=== PATIENT | female | born 1940 | race Caucasian/White ===

== ENCOUNTER 2016-10-05 15:41 | Inpatient (IN) | payer MEDICARE, SELFPAY ==
--- NOTE | 2016-10-05 15:56 | EDM.PDOC ---
ED HPI GENERAL MEDICAL PROBLEM - General Chief Complaint: Neuro Symptoms/Deficits Stated Complaint: POSSIBLE STROKE Time Seen by Provider: 10/05/16 15:50 Source of Information: Reports: Patient History Limitations: Reports: No Limitations - History of Present Illness INITIAL COMMENTS - FREE TEXT/NARRATIVE: 74-year-old female presents the ED transferred by [facility]. She presented there with generalized weakness and apparently had some dysarthria or slurred speech which they thought might represent a stroke. The patient reports that she 's been ill for the last 10 days with paroxysmal productive cough diagnosed with bronchitis last week and is on antibiotic therapy. She reports over the last 2 days she's gotten worse instead of better. X-ray was not done at the time of diagnosis. She was placed on 8 albuterol metered-dose inhaler and antibiotics. She has no diarrhea nausea or vomiting. She is hardly any appetite although she is forcing herself to eat. Today she is weak all over. Is a little more short of breath. He is lightheaded when she standing. Over the last 2 days she's developed pain in her left lower back flank area that is worsened by weightbearing on the left side. She has no diarrhea. She does not have diabetes. Onset: Gradual (Has had a purse by tract infection with paroxysmal productive cough for about 10 days. Been on antibiotics for approximately 6 days. Still coughing paroxysmal he with minimal sputum production.), Other ( Dominant left low back pain worsened by walking on the left leg.) Duration: Day(s): Location: Reports: Chest (Productive cough x10 days. Hardly any sputum production over last 2 days. Paroxysmal cough persists), Back (Diffuse left lower back pain radiating to her left buttock and posterior hip.), Other - Related Data Allergies Allergy/AdvReac Type Severity Reaction Status Date / Time Penicillins Allergy Cannot Verified 10/05/16 15:52 Remember Home Meds: Home Meds Omeprazole 40 mg PO BID 01/05/15 [History] Calcium Carbonate/Vitamin D3 [Calcium 250+D] 1 each PO DAILY 01/16/15 [History] Cyclobenzaprine [Flexeril] 10 mg PO TID PRN #40 tablet 01/17/15 [Rx] Past Medical History Other Cardiovascular History: Rheumatic fever Hx / PVD with Aortic Bi-Fem per family Respiratory History: Reports: Bronchitis, Recurrent, COPD (Chronic cigarette smoker for 50 pack years.) Other Gastrointestinal History: STOMACH ULCERS Other OB/BYN History: HYSTERECTOMY Neurological History: Reports: None Other Neuro History: Bilateral leg "weakness" Rt. wworse than Lt. Other Dermatologic History: OPEN SORE ON RIGHT ARM - Past Surgical History Other Cardiovascular Surgeries/Procedures: FEMORAL POPLITEAL BYPASS Social & Family History - Tobacco Use Smoking Status *Q: Current Every Day Smoker Tobacco Use Within Last Twelve Months: Cigarettes (Has smoked only for cigarettes in the last week.) Years of Tobacco use: 50 Second Hand Smoke Exposure: Yes - Recreational Drug Use Recreational Drug Use: No - Living Situation & Occupation Living situation: Reports: Occupation: Retired ED ROS GENERAL - Review of Systems Review Of Systems: See Below Constitutional: Reports: Chills, Malaise, Weakness, Fatigue, Diaphoresis, Decreased Appetite. Denies: Fever, Weight Loss HEENT: Denies: Ear Pain, Vertigo, Vision Change Respiratory: Reports: Wheezing, Cough, Sputum (Productive cough. No sputum the last 3 days. Percocet was yellow in color) Cardiovascular: Reports: Chest Pain (Been coughing so much.), Dyspnea on Exertion, Lightheadedness. Denies: Blood Pressure Problem, Claudication, Edema , Orthopnea, Palpitations Endocrine: Reports: Fatigue GI/Abdominal: Reports: Decreased Appetite. Denies: Abdominal Pain, Diarrhea, Distension : Reports: No Symptoms Musculoskeletal: Reports: Back Pain (Use low back pain the last 2 days. She believes it's started after coughing so hard. It radiates into the left buttock and hip area posteriorly.) Skin: Reports: No Symptoms Neurological: Reports: No Symptoms, Difficulty Walking, Weakness (To the week), Change in Speech (Was told her speech was a little dysarthric but at the time my examination there was no dysarthria.). Denies: Headache, Numbness, Tingling Psychiatric: Reports: No Symptoms Hematologic/Lymphatic: Reports: No Symptoms Immunologic: Reports: No Symptoms ED EXAM, GENERAL - Physical Exam Exam: See Below Exam Limited By: No Limitations General Appearance: Alert, WD/WN, Anxious (Mildly short of breath.), Mild Distress Eye Exam: Bilateral Eye: Normal Inspection Ears: Normal External Exam, Normal TMs Throat/Mouth: Normal Inspection, Normal Lips, Normal Oropharynx, Other (Tongue is moist.) Head: Atraumatic, Normocephalic Neck: Normal Inspection, Supple, Non-Tender, Full Range of Motion. No: Carotid Bruit, Lymphadenopathy (L), Lymphadenopathy (R) Respiratory/Chest: Chest Non-Tender, Respiratory Distress, Decreased Breath Sounds (Increased air entry to the posterior 30% of lung farrell bilaterally.), Wheezing. No: Lungs Clear, Normal Breath Sounds, No Accessory Muscle Use Cardiovascular: Normal Peripheral Pulses, Regular Rate, Rhythm, No Edema, No Gallop, No Murmur, No Rub Peripheral Pulses: 1+: Posterior Tibial (L), Posterior Tibial (R), Dorsalis Pedis (L), Dorsalis Pedis (R) GI/Abdominal: Normal Bowel Sounds, Soft, Non-Tender, No Organomegaly, No Distention, Other (Tympany to percussion in the upper abdomen compatible with aerophagia.) Back Exam: Normal Inspection, CVA Tenderness (L), Decreased Range of Motion, Vertebral Tenderness (Especially lower back L3-4 and 5 on the left side as compared to the right.), Other (Internal/external rotation of her left hip causes marked pain in the superior aspect of the right sacroiliac joint. There is also some pain to palpation along L3-L4 and L5 facet joints bilaterally. He is also felt in the left lower back on internal/external rotation of the right hip.). No: Full Range of Motion, CVA Tenderness (R), Muscle Spasm Extremities: Normal Inspection, Normal Range of Motion, Non-Tender, No Pedal Edema, Normal Capillary Refill, Other (Lifting the left leg off the gurney caused pain in her left lower back.) Neurological: Alert, Oriented, CN II-XII Intact, Normal Cognition, Normal Gait Psychiatric: Normal Affect, Normal Mood Skin Exam: Warm, Dry, Intact, Normal Color, No Rash EKG INTERPRETATION EKG Date: 10/05/16 Time: 15:55 Rhythm: NSR Rate (beats/min): 80 [place]: normal P-wave: present QRS: normal ST-T: other (T wave flattening in aVL and lead V2. Nonspecific) QT: normal (No signs of any ischemia.) Course - Vital Signs Last Recorded V/S: Last Vital Signs Temp 36.2 C 10/05/16 15:47 Pulse 81 10/05/16 15:47 Resp 24 H 10/05/16 15:47 BP 118/50 L 10/05/16 15:47 Pulse Ox 93 L 10/05/16 16:29 - Orders/Labs/Meds Orders: Active Orders 24 hr Category Date Time Status EKG Documentation Completion [RC] STAT Care 10/05/16 15:54 Active Oxygen Therapy [RC] ASDIRECTED Care 10/05/16 19:27 Active RT Aerosol Therapy [RC] ASDIRECTED Care 10/05/16 16:11 Active Chest 1V Frontal [CR] Stat Exams 10/05/16 15:53 Taken Lumbar Spine 2 or 3V [CR] Stat Exams 10/05/16 15:55 Taken CULTURE BLOOD [BC] Stat Lab 10/05/16 16:25 Received CULTURE BLOOD [BC] Stat Lab 10/05/16 16:45 Received MYCOPLASMA PNEUMONIAE IGM AB [CHEM] Stat Lab 10/05/16 15:50 Received Dextrose 5%-0.9% NaCl [Dextrose 5%-Normal Saline] 1,000 Med 10/05/16 16:00 Active ml IV ASDIRECTED NS + KCl 20mEq/L [Normal Saline with 20 mEq KCl] 1,000 Med 10/05/16 19:45 Active ml IV ASDIRECTED Sodium Chloride 0.9% [Normal Saline] 100 ml Med 10/05/16 18:45 Active IV ASDIRECTED Sodium Chloride 0.9% [Saline Flush] Med 10/05/16 18:44 Active 10 ml FLUSH ONETIME PRN cefTRIAXone [Rocephin] 2 gm Med 10/05/16 19:23 Active Sodium Chloride 0.9% [Normal Saline] 100 ml IV ONETIME Blood Culture x2 Reflex Set [OM.PC] Stat Oth 10/05/16 15:54 Ordered Medication Orders Dextrose/Sodium Chloride (Dextrose 5%-Normal Saline) 1,000 mls @ 999 mls/hr IV ASDIRECTED PAULA Last Admin: 10/05/16 16:22 Dose: 999 mls/hr Sodium Chloride (Normal Saline) 100 mls @ 80 mls/hr IV ASDIRECTED PAULA Last Admin: 10/05/16 19:07 Dose: 80 mls/hr Ceftriaxone Sodium 2 gm/ (Sodium Chloride) 100 mls @ 200 mls/hr IV ONETIME ONE Stop: 10/05/16 19:52 Last Admin: 10/05/16 19:40 Dose: 200 mls/hr Potassium Chloride/Sodium Chloride (Normal Saline With 20 Meq Kcl) 1,000 mls @ 125 mls/hr IV ASDIRECTED PAULA Sodium Chloride (Saline Flush) 10 ml FLUSH ONETIME PRN PRN Reason: IV FLUSH Last Admin: 10/05/16 19:07 Dose: 10 ml Labs: Laboratory Tests 10/05/16 10/05/16 10/05/16 Range/Units 15:50 15:50 15:50 WBC 10.62 H (3.98-10.04) K/mm3 RBC 3.99 (3.98-5.22) M/mm3 Hgb 12.3 (11.2-15.7) gm/L Hct 37.0 (34.1-44.9) % MCV 92.7 (79.4-94.8) fl MCH 30.8 (25.6-32.2) pg MCHC 33.2 (32.2-35.5) g/dl RDW Std Deviation 44.9 (36.4-46.3) fL Plt Count 282 (182-369) K/mm3 MPV 10.0 (9.4-12.3) fl Neutrophils % (Manual) 76 H (40-60) % Band Neutrophils % 0 (0-10) % Lymphocytes % (Manual) 14 L (20-40) % Atypical Lymphs % 0 % Monocytes % (Manual) 7 (2-10) % Eosinophils % (Manual) 3 (0.7-5.8) % Basophils % (Manual) 0 L (0.1-1.2) Platelet Estimate Adequate Plt Morphology Comment Normal RBC Morph Comment Normal ESR 80 H (0-20) mm/hr D-Dimer, Quantitative (0.19-0.59) mg/L Sodium 137 (136-145) mEq/L Potassium 3.4 L (3.5-5.1) mEq/L Chloride 101 (98-107) mEq/L Carbon Dioxide 23 (21-32) mEq/L Anion Gap 16.4 H (5-15) BUN 13 (7-18) mg/dL Creatinine 1.2 H (0.55-1.02) mg/dL Est Cr Clr Drug Dosing 29.99 mL/min Estimated GFR (MDRD) 44 (>60) mL/min BUN/Creatinine Ratio 10.8 L (14-18) Glucose 134 H (83-115) mg/dL Lactic Acid (0.4-2.0) mmol/L Calcium 8.8 (8.5-10.1) mg/dL Magnesium 1.3 L (1.8-2.4) mg/dl Total Bilirubin 0.6 (0.2-1.0) mg/dL AST 22 (15-37) U/L ALT 23 (14-59) U/L Alkaline Phosphatase 105 (46-116) U/L Troponin I < 0.017 (0.00-0.056) ng/mL C-Reactive Protein 22.4 H* (<1.0) mg/dL B-Natriuretic Peptide (0-100) pg/mL Total Protein 7.2 (6.4-8.2) g/dl Albumin 2.7 L (3.4-5.0) g/dl Globulin 4.5 gm/dL Albumin/Globulin Ratio 0.6 L (1-2) Urine Color (Yellow) Urine Appearance (Clear) Urine pH (5.0-8.0) Ur Specific [place] (1.005-1.030) Urine Protein (Negative) Urine Glucose (UA) (Negative) Urine Ketones (Negative) Urine Occult Blood (Negative) Urine Nitrite (Negative) Urine Bilirubin (Negative) Urine Urobilinogen (0.2-1.0) Ur Leukocyte Esterase (Negative) Urine RBC (0-5) /hpf Urine WBC (0-5) /hpf Ur Epithelial Cells (0-5) /hpf Urine Bacteria (FEW) /hpf Urine Mucus (FEW) /hpf 10/05/16 10/05/16 10/05/16 Range/Units 15:50 15:50 16:25 WBC (3.98-10.04) K/mm3 RBC (3.98-5.22) M/mm3 Hgb (11.2-15.7) gm/L Hct (34.1-44.9) % MCV (79.4-94.8) fl MCH (25.6-32.2) pg MCHC (32.2-35.5) g/dl RDW Std Deviation (36.4-46.3) fL Plt Count (182-369) K/mm3 MPV (9.4-12.3) fl Neutrophils % (Manual) (40-60) % Band Neutrophils % (0-10) % Lymphocytes % (Manual) (20-40) % Atypical Lymphs % % Monocytes % (Manual) (2-10) % Eosinophils % (Manual) (0.7-5.8) % Basophils % (Manual) (0.1-1.2) Platelet Estimate Plt Morphology Comment RBC Morph Comment ESR (0-20) mm/hr D-Dimer, Quantitative 1.47 H (0.19-0.59) mg/L Sodium (136-145) mEq/L Potassium (3.5-5.1) mEq/L Chloride (98-107) mEq/L Carbon Dioxide (21-32) mEq/L Anion Gap (5-15) BUN (7-18) mg/dL Creatinine (0.55-1.02) mg/dL Est Cr Clr Drug Dosing mL/min Estimated GFR (MDRD) (>60) mL/min BUN/Creatinine Ratio (14-18) Glucose (83-115) mg/dL Lactic Acid 1.1 (0.4-2.0) mmol/L Calcium (8.5-10.1) mg/dL Magnesium (1.8-2.4) mg/dl Total Bilirubin (0.2-1.0) mg/dL AST (15-37) U/L ALT (14-59) U/L Alkaline Phosphatase (46-116) U/L Troponin I (0.00-0.056) ng/mL C-Reactive Protein (<1.0) mg/dL B-Natriuretic Peptide 120 H (0-100) pg/mL Total Protein (6.4-8.2) g/dl Albumin (3.4-5.0) g/dl Globulin gm/dL Albumin/Globulin Ratio (1-2) Urine Color (Yellow) Urine Appearance (Clear) Urine pH (5.0-8.0) Ur Specific [place] (1.005-1.030) Urine Protein (Negative) Urine Glucose (UA) (Negative) Urine Ketones (Negative) Urine Occult Blood (Negative) Urine Nitrite (Negative) Urine Bilirubin (Negative) Urine Urobilinogen (0.2-1.0) Ur Leukocyte Esterase (Negative) Urine RBC (0-5) /hpf Urine WBC (0-5) /hpf Ur Epithelial Cells (0-5) /hpf Urine Bacteria (FEW) /hpf Urine Mucus (FEW) /hpf 10/05/16 Range/Units 17:35 WBC (3.98-10.04) K/mm3 RBC (3.98-5.22) M/mm3 Hgb (11.2-15.7) gm/L Hct (34.1-44.9) % MCV (79.4-94.8) fl MCH (25.6-32.2) pg MCHC (32.2-35.5) g/dl RDW Std Deviation (36.4-46.3) fL Plt Count (182-369) K/mm3 MPV (9.4-12.3) fl Neutrophils % (Manual) (40-60) % Band Neutrophils % (0-10) % Lymphocytes % (Manual) (20-40) % Atypical Lymphs % % Monocytes % (Manual) (2-10) % Eosinophils % (Manual) (0.7-5.8) % Basophils % (Manual) (0.1-1.2) Platelet Estimate Plt Morphology Comment RBC Morph Comment ESR (0-20) mm/hr D-Dimer, Quantitative (0.19-0.59) mg/L Sodium (136-145) mEq/L Potassium (3.5-5.1) mEq/L Chloride (98-107) mEq/L Carbon Dioxide (21-32) mEq/L Anion Gap (5-15) BUN (7-18) mg/dL Creatinine (0.55-1.02) mg/dL Est Cr Clr Drug Dosing mL/min Estimated GFR (MDRD) (>60) mL/min BUN/Creatinine Ratio (14-18) Glucose (83-115) mg/dL Lactic Acid (0.4-2.0) mmol/L Calcium (8.5-10.1) mg/dL Magnesium (1.8-2.4) mg/dl Total Bilirubin (0.2-1.0) mg/dL AST (15-37) U/L ALT (14-59) U/L Alkaline Phosphatase (46-116) U/L Troponin I (0.00-0.056) ng/mL C-Reactive Protein (<1.0) mg/dL B-Natriuretic Peptide (0-100) pg/mL Total Protein (6.4-8.2) g/dl Albumin (3.4-5.0) g/dl Globulin gm/dL Albumin/Globulin Ratio (1-2) Urine Color Yellow (Yellow) Urine Appearance Clear (Clear) Urine pH 6.5 (5.0-8.0) Ur Specific [place] 1.015 (1.005-1.030) Urine Protein Trace H (Negative) Urine Glucose (UA) Trace H (Negative) Urine Ketones Negative (Negative) Urine Occult Blood Negative (Negative) Urine Nitrite Negative (Negative) Urine Bilirubin Negative (Negative) Urine Urobilinogen 1.0 (0.2-1.0) Ur Leukocyte Esterase Negative (Negative) Urine RBC 0-5 (0-5) /hpf Urine WBC 0-5 (0-5) /hpf Ur Epithelial Cells 10-20 H (0-5) /hpf Urine Bacteria Few (FEW) /hpf Urine Mucus Few (FEW) /hpf Meds: Medications Generic Name Dose Route Start Last Admin Trade Name Freq PRN Reason Stop Dose Admin Dextrose/Sodium Chloride 1,000 mls @ 999 mls/hr 10/05/16 16:00 10/05/16 16:22 Dextrose 5%-Normal Saline IV 999 mls/hr ASDIRECTED PAULA Administration Sodium Chloride 100 mls @ 80 mls/hr 10/05/16 18:45 10/05/16 19:07 Normal Saline IV 80 mls/hr ASDIRECTED PAULA Administration Ceftriaxone Sodium 2 gm/ 100 mls @ 200 mls/hr 10/05/16 19:23 10/05/16 19:40 Sodium Chloride IV 10/05/16 19:52 200 mls/hr ONETIME ONE Administration Potassium Chloride/Sodium Chloride 1,000 mls @ 125 mls/hr 10/05/16 19:45 Normal Saline With 20 Meq Kcl IV ASDIRECTED PAULA Sodium Chloride 10 ml 10/05/16 18:44 10/05/16 19:07 Saline Flush FLUSH 10 ml ONETIME PRN Administration IV FLUSH Discontinued Medications Generic Name Dose Route Start Last Admin Trade Name Freq PRN Reason Stop Dose Admin Albuterol/Ipratropium 3 ml 10/05/16 16:11 10/05/16 16:29 Duoneb 3.0-0.5 Mg/3 Ml NEB 10/05/16 16:12 3 ml ONETIME ONE Administration Iopamidol 100 ml 10/05/16 18:44 10/05/16 19:07 Isovue-370 (76%) IVPUSH 10/05/16 18:45 70 ml ONETIME ONE Administration - Radiology Interpretation Free Text/Narrative:: 35-year-old female brought to the ED for evaluation of possible stroke symptoms. Patient has been unwell for the better part of 2 weeks with paroxysmal productive cough. She was seen in the clinic last week diagnosed with bronchitis and placed on albuterol metered-dose inhaler and another antibiotic. She thinks she started to feel better after about 2-3 days but over the weekend her health declined once again. No noted fever but does have some chills. Developed low back pain upon rate rising from bed yesterday morning it is into her left hip and buttock and worsened by weightbearing. She feels that paroxysmal cough may have injured this area. On examination her O2 sat to 93% on room air. She is mildly to typically get 24-26 per minute. She is diffusely wheezy throughout lung farrell with a few rhonchi in the anterior upper lobes. Plan routine lab work including blood cultures x2. One view chest x-ray 2 view lumbar spine to be done. IV will be D5 normal saline at 150 mils per hour. We will a rig mechanic where she feels her meds since I know what antibiotic she was placed on. - Re-Assessments/Exams Free Text/Narrative Re-Assessment/Exam: 10/05/16 16:21 initial blood pressures were in the one teens but when she is rested there down to 91/49. She is therefore hypotensive. IV which was D5 normal saline at 150 mils per hour will be opened up to 999 mils per hour. 10/05/16 16:26 identified that she was placed on Levaquin 500 mg once daily and she's been on since last Wednesday i.e. 6 days. Not her indicates that there is a great deal of multiple in her home and garage where the had a runny still this last . Therefore concerns of possible Hanta virus infection came up and discussion. 10/05/16 16:29 chest x-ray reveals no definitive pneumonia. There is fluffy infiltrate in the inferior aspect of the right lung. Cardiac silhouette is otherwise normal. X-ray of the lumbar spine reveals no obvious compression fractures. There is mild to moderate degenerative changes. Extensive increased stool is seen in the colon. 10/05/16 16:57 BP has improved to 112/53 patient reports that she always has low blood pressure. Will await the findings in her labs. 10/05/16 17:11 labs are back showing a white count of 10.62 with 76% neutrophils and no bands reported hemoglobin 12.3 hematocrit 37.0 platelets 282, 000. Sodium is 137 potassium is mildly low at 3.4. Chloride 101 bicarbonate 23. Anion gap mildly elevated at 16.4. BUN of 13 creatinine 1.2 EGFR is 44 close 134. Troponin was normal at less than 0.017 of infection is low at 2.7 BNP is 120 and he is in his low at 1.3 sedimentation rate interestingly came back markedly elevated at 80 CRP is also markedly elevated at 22.4. 10/05/16 17:22 Blood pressure is currently 125/50 with a heart rate of 86. 10/05/16 18:[address] pulmonary angiogram due to the elevated d-dimer of 1.47 . [place] likely elevated due to to underlying infective process as the CRP is 22.4. The urinalysis is not yet completed. 10/05/16 19:25 CT pulmonary angiogram is negative for any pulmonary emboli. However there are scattered patchy infiltrates throughout all lobes of both lungs. This is an atypical pneumonia or pneumonitis. She has a stable 6 mm nodule in the left lower lobe of her lung. Cause is unclear. The fact that that she's been around a lot of mice feces as of recent, raises concern about potential Hanta virus infection. 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 Will therefore order a Hanta virus titer and Legionaire`s disease titre. I will also order a mycoplasma titer. Patient isn't keen on staying in the hospital however I have coaxed her into staying. She presented with hypotension, hypoxia and has bilateral significant infiltrates in her lungs after 6 days of Levaquin by mouth. I will discuss case with Dr. Saucedo software applications designer hospitalist. Departure - Departure Time of Disposition: 19:29 Disposition: Admitted As Inpatient 68 Condition: fair Clinical Impression: Atypical pneumonia, Hypoxia, Hypotension - Discharge Information Referrals: Eliseo,Magali M, INSTRUCTIONAL DEVELOPER [Primary Care Provider] - Forms: ED Department Discharge - My Orders Last 24 Hours: My Active Orders 10/05/16 15:50 MYCOPLASMA PNEUMONIAE IGM AB [CHEM] Stat 10/05/16 15:53 Chest 1V Frontal [CR] Stat 10/05/16 15:54 EKG Documentation Completion [RC] STAT Blood Culture x2 Reflex Set [OM.PC] Stat 10/05/16 15:55 Lumbar Spine 2 or 3V [CR] Stat 10/05/16 16:00 Dextrose 5%-0.9% NaCl [Dextrose 5%-Normal Saline] 1,000 ml IV ASDIRECTED 10/05/16 16:11 RT Aerosol Therapy [RC] ASDIRECTED 10/05/16 16:25 CULTURE BLOOD [BC] Stat 10/05/16 16:45 CULTURE BLOOD [BC] Stat 10/05/16 18:44 Sodium Chloride 0.9% [Saline Flush] 10 ml FLUSH ONETIME PRN 10/05/16 18:45 Sodium Chloride 0.9% [Normal Saline] 100 ml IV ASDIRECTED 10/05/16 19:23 cefTRIAXone [Rocephin] 2 gm Sodium Chloride 0.9% [Normal Saline] 100 ml IV ONETIME 10/05/16 19:27 Oxygen Therapy [RC] ASDIRECTED 10/05/16 19:45 NS + KCl 20mEq/L [Normal Saline with 20 mEq KCl] 1,000 ml IV ASDIRECTED - Assessment/Plan Last 24 Hours: My Active Orders 10/05/16 15:50 MYCOPLASMA PNEUMONIAE IGM AB [CHEM] Stat 10/05/16 15:53 Chest 1V Frontal [CR] Stat 10/05/16 15:54 EKG Documentation Completion [RC] STAT Blood Culture x2 Reflex Set [OM.PC] Stat 10/05/16 15:55 Lumbar Spine 2 or 3V [CR] Stat 10/05/16 16:00 Dextrose 5%-0.9% NaCl [Dextrose 5%-Normal Saline] 1,000 ml IV ASDIRECTED 10/05/16 16:11 RT Aerosol Therapy [RC] ASDIRECTED 10/05/16 16:25 CULTURE BLOOD [BC] Stat 10/05/16 16:45 CULTURE BLOOD [BC] Stat 10/05/16 18:44 Sodium Chloride 0.9% [Saline Flush] 10 ml FLUSH ONETIME PRN 10/05/16 18:45 Sodium Chloride 0.9% [Normal Saline] 100 ml IV ASDIRECTED 10/05/16 19:23 cefTRIAXone [Rocephin] 2 gm Sodium Chloride 0.9% [Normal Saline] 100 ml IV ONETIME 10/05/16 19:27 Oxygen Therapy [RC] ASDIRECTED 10/05/16 19:45 NS + KCl 20mEq/L [Normal Saline with 20 mEq KCl] 1,000 ml IV ASDIRECTED
[2016-10-05] MEDS ORDERED: Dextrose 5%-0.9% NaCl 1,000 ML IV SCH (16:00)
[2016-10-05] MEDS ORDERED: Albuterol/Ipratropium 3.0-0.5 MG/3 ML Neb Soln NEB ONE (16:11)
[2016-10-05] MEDS ORDERED: Iopamidol 755 Mg/ML 100 ML Bottle IVPUSH ONE (18:44)
[2016-10-05] MEDS ORDERED: Sodium Chloride 0.9% 10 ML Syringe FLUSH PRN (18:44)
[2016-10-05] MEDS ORDERED: Sodium Chloride 0.9% 100 ML IV SCH (18:45)
[2016-10-05] MEDS ORDERED: cefTRIAXone 2 GM in Sodium Chloride 0.9% 100 ML IV ONE (19:23)
--- NOTE | 2016-10-05 19:37 | CT ---
CT chest Technique: Multiple axial sections were obtained from above the lung apices inferiorly through the lung bases. Intravenous contrast was utilized. Study has been performed as a pulmonary angiogram protocol. Comparison: Previous chest CT study of 11/30/13. Findings: Pulmonary arteries are fairly well-opacified. No filling defects are seen to indicate pulmonary embolism. Slightly prominent lymph nodes are seen within the mediastinum and hilar regions. Direct comparison is somewhat difficult to prior study since it was performed without contrast but I believe that findings are fairly stable. No axillary adenopathy is seen. Coronary artery calcification is present which is moderate in severity. Visualized upper abdominal structures shows no discrete abnormality. Lung window settings shows patchy interstitial change throughout both lungs. These findings are an interval change from prior study and have the appearance of multifocal areas of pulmonary fibrosis although findings could less likely represent multiple areas of interstitial pneumonia. No pleural effusions are seen. Small 6 mm nodule noted within the left lung base which is stable. Bone window settings were reviewed which appear within normal limits for the patient's age. Impression: 1. No findings of pulmonary embolism. 2. Multifocal areas of interstitial change which represents an interval finding from prior chest CT. Findings have the appearance of mostly pulmonary fibrosis although given the interval change difficult to completely exclude multifocal interstitial pneumonia. Recommend treatment as a pneumonia and follow-up chest CT could be considered 6 months after therapy is complete to see if findings resolve. 3. Mildly prominent lymph nodes. Prior study is a noncontrast exam but no definite change is seen. 4. Prior CT exam shows a nodule within the left lung base which appears to be stable from prior exam measuring approximately 6 mm. 5. Other incidental findings as noted above. Diagnostic code #3
[2016-10-05] MEDS: NS + KCl 20mEq/L 1,000 ML IV SCH (20:22)
[2016-10-05] MEDS ORDERED: Ondansetron 4 MG/2 ML SDV IV PRN (20:52)
[2016-10-05] MEDS ORDERED: LORazepam 2 MG/ML MDV IV PRN (20:52)
[2016-10-05] MEDS ORDERED: Temazepam 15 MG Cap PO PRN (20:52)
[2016-10-05] MEDS ORDERED: hydrALAZINE 20 MG/ML SDV IVPUSH PRN (20:52)
[2016-10-05] MEDS ORDERED: Promethazine 12.5 MG in Sodium Chloride 0.9% 50 ML IV PRN (20:52)
[2016-10-05] MEDS ORDERED: Bisacodyl 5 MG Tab PO PRN (20:52)
[2016-10-05] MEDS ORDERED: Metoprolol Tartrate 5 MG/5 ML SDV IVPUSH PRN (20:52)
[2016-10-05] MEDS ORDERED: Polyethylene Glycol 3350 Powder 17 GM Packet PO PRN (20:52)
[2016-10-05] MEDS ORDERED: HYDROmorphone 0.5 MG/0.5 ML Syringe IVPUSH PRN (20:52)
[2016-10-05] MEDS ORDERED: Acetaminophen 325 MG Tab PO PRN (20:52)
--- NOTE | 2016-10-05 20:52 | PCM.HP ---
H&P History of Present Illness - General Date of Service: 10/05/16 Admit Problem/Dx: Admission Diagnosis/Problem Admission Diagnosis/Problem Atypical pneumonia Source of Information: Patient, Family, Old Records, Provider, RN Notes Reviewed History Limitations: Reports: No Limitations - History of Present Illness Initial Comments - Free Text/Narative: This is a 75 yo elderly white female with past medical hx/o Active Smoking, COPD , PUD, Leg Weakness, Hx/o Rheumatic Fever, PVD and Hx/o Fem-Pop Bypass GERD who comes in with complaints of generalized weakness associated with dysarthria. She was initially seen at her PCP's office before she as transferred to ED for further evaluation. Patient has been ill for the past 10 days. She was diagnosed with bronchitis ands was treated for oral quinolone. However she did not improve. She still complaints of weakness, productive cough, reduced appetite and left lower back and flank pain. She denies any fever, nausea, vomiting, diarrhea or abdominal. No rash, joints or muscle aches or pain. Her initial work up in ED shows a CBC remarkable for WBC of 10.62, Neutrophils or 76% and ESR of 80. Her D-Dimer is 1.47. Her chemistry is significant for K 3.4, AG 16.4, Cr 1.2, BS 134, Mg 1.3, CRP 22.4, BNP 120 and Albumin 2.7. Her UA is negative for UTI. She is mycoplasma Ag negative. CXR shows some mild infiltrate at the right base. Lumbar Spine XR shows no obvious fracture but noted for advanced degenerative changes. Her CTA shows Multifocal areas of interstitial change, mildly prominent lymph nodes, and nodule within the left lung base which is stable form previous study. Patient is being admitted for PNA. She is full code. - Related Data Allergies/Adverse Reactions: Allergies Allergy/AdvReac Type Severity Reaction Status Date / Time Penicillins Allergy Cannot Verified 10/05/16 15:52 Remember Home Medications: Home Meds Omeprazole 40 mg PO BID 01/05/15 [History] Cyclobenzaprine [Flexeril] 10 mg PO TID PRN #40 tablet 01/17/15 [Rx] Calcium Lactate 1,500 mg PO DAILY 10/05/16 [History] Past Medical History Other Cardiovascular History: Rheumatic fever Hx / PVD with Aortic Bi-Fem per family Respiratory History: Reports: Bronchitis, Recurrent, COPD (Chronic cigarette smoker for 50 pack years.) Other Gastrointestinal History: STOMACH ULCERS Other OB/BYN History: HYSTERECTOMY Neurological History: Reports: None Other Neuro History: Bilateral leg "weakness" Rt. wworse than Lt. Other Dermatologic History: OPEN SORE ON RIGHT ARM - Past Surgical History Other Cardiovascular Surgeries/Procedures: FEMORAL POPLITEAL BYPASS Social & Family History - Family History Family Medical History: Noncontributory - Tobacco Use Smoking Status *Q: Current Every Day Smoker Years of Tobacco use: 50 Packs/Tins Daily: 0.5 Second Hand Smoke Exposure: Yes - Caffeine Use Caffeine Use: Reports: Coffee, Soda - Recreational Drug Use Recreational Drug Use: No - Living Situation & Occupation Living situation: Reports: Occupation: Retired H&P Review of Systems - Review of Systems: Review Of Systems: See Below General: Reports: Chills, Malaise, Weakness, Fatigue, Diaphoresis, Decreased Appetite HEENT: Reports: No Symptoms Pulmonary: Reports: Shortness of Breath, Wheezing, Cough, Sputum Cardiovascular: Reports: Chest Pain, Dyspnea on Exertion Gastrointestinal: Reports: Decreased Appetite. Denies: Abdominal Pain, Nausea, Vomiting Genitourinary: Reports: No Symptoms Musculoskeletal: Reports: Back Pain Skin: Denies: Cyanosis, Rash, Erythema, Wound, Lesions Psychiatric: Denies: Confusion, Depression, Anxiety, Agitation, Hallucinations Neurological: Reports: Difficulty Walking, Weakness, Gait Disturbance. Denies: Confusion Hematologic/Lymphatic: Reports: No Symptoms Immunologic: Reports: No Symptoms Exam - Exam Exam: See Below - Vital Signs Vital Signs: Last Vital Signs Temp 36.2 C 10/05/16 15:47 Pulse 81 10/05/16 15:47 Resp 24 H 10/05/16 15:47 BP 118/50 L 10/05/16 15:47 Pulse Ox 93 L 10/05/16 16:29 Weight: 68.039 kg - Exam General: Alert, Oriented, Cooperative, Mild Distress HEENT: Conjunctiva Clear, EACs Clear, EOMI, Hearing Intact, Mucosa Moist & [place] , Nares Patent, Normal Nasal Septum, Pupils Equal, Pupils Reactive Neck: Supple, Trachea Midline Lungs: Normal Respiratory Effort, Decreased Breath Sounds, Wheezing Cardiovascular: Regular Rate, Regular Rhythm Abdomen: Normal Bowel Sounds, Soft. No: Organomegaly, Tenderness (Female) Exam: Deferred Rectal (Female) Exam: Deferred Back Exam: Normal Inspection, Decreased Range of Motion, Muscle Spasm Extremities: Normal Inspection, Normal Pulses. No: Clubbing, Edema Skin: Warm, Dry, Intact Neuro Extensive - Mental Status: Oriented x3, Normal Cognition, Memory Intact Neuro Extensive - Motor, Sensory, Reflexes: CN II-XII Intact, Normal Gait Psychiatric: Alert, Normal Affect, Normal Mood - Patient Data Result Diagrams: 10/05/16 15:50 10/05/16 15:50 EKG INTERPRETATION EKG Date: 10/05/16 Time: 15:55 Rhythm: NSR Rate (beats/min): 80 [place]: normal P-wave: present QRS: normal QT: normal *Q Meaningful Use (ADM) - VTE *Q VTE Criteria *Q: - Stroke *Q Stroke Criteria *Q: - AMI *Q AMI Criteria *Q: Problem List Initiated/Reviewed/Updated: Yes Orders Last 24hrs: Medication Orders Dextrose/Sodium Chloride (Dextrose 5%-Normal Saline) 1,000 mls @ 999 mls/hr IV ASDIRECTED [facility] Last Admin: 10/05/16 16:22 Dose: 999 mls/hr Sodium Chloride (Normal Saline) 100 mls @ 80 mls/hr IV ASDIRECTED [facility] Last Admin: 10/05/16 19:07 Dose: 80 mls/hr Potassium Chloride/Sodium Chloride (Normal Saline With 20 Meq Kcl) 1,000 mls @ 125 mls/hr IV ASDIRECTED [facility] Last Admin: 10/05/16 20:22 Dose: 125 mls/hr Sodium Chloride (Saline Flush) 10 ml FLUSH ONETIME PRN PRN Reason: IV FLUSH Last Admin: 10/05/16 19:07 Dose: 10 ml Assessment/Plan Comment:: Assessment/Plan: Acute: Community Acquired Pneumonia - Multi-focal Areas of Interstitial Change: Pulmonary Fibrosis vs Interstitial PNA - Risk factor: Still smokes - Sputum Cx/Sx and Strep Ag Test - Mycoplasma AG negative - IV antibiotics with Azith/Rocephin, Bronchodilators, Decongestant/ Expectorant, RT Care, FV/IS As directed - Serial CXR Probable Interstitial Fibrosis - Advised to quit smoking - Pulmonary Eval after discharge Elevated D-Dimer - CTA negative Hypokalemia - K 3.4 Likely 2/2 inadequate intake - Pharmacy to replete and monitor Hypotension - BP on presentation 93/55 mmHg - Has since improved with fluid challenge Nicotine Dependence - Still smokes - Advised to quit smoking - Nicotine Patch daily Plan: Admit to the floor Routine AM Labs Hold Home Meds PT/OT/RT eval SW/CM for d/c planning Code status:1
[2016-10-05] MEDS ORDERED: Famotidine 20 MG Tab PO SCH (21:00)
[2016-10-05] MEDS ORDERED: Magnesium Sulfate/Water 50 ML IV ONE (21:30)
[2016-10-05] MEDS: guaiFENesin 600 MG Tab.ER PO SCH (22:37)
[2016-10-05] MEDS: Potassium Chloride 20 MEQ Tab.ER PO SCH (22:38)
[2016-10-05] MEDS ORDERED: Albuterol/Ipratropium 3.0-0.5 MG/3 ML Neb Soln ONE (22:59)
[2016-10-06] MEDS: Azithromycin 500 MG in Sodium Chloride 0.9% 250 ML IV SCH ×2 (00:53→22:32)
[2016-10-06] MEDS: Potassium Chloride 20 MEQ Tab.ER PO SCH (00:54)
[2016-10-06] MEDS: NS + KCl 20mEq/L 1,000 ML IV SCH (04:47)
[2016-10-06] MEDS: Albuterol/Ipratropium 3.0-0.5 MG/3 ML Neb Soln NEB PRN ×3 (06:11→21:51)
[2016-10-06] MEDS ORDERED: Temazepam 7.5 MG Cap PO PRN (07:22)
[2016-10-06] MEDS ORDERED: Nicotine 21 MG/24 Hr Patch TRDERM SCH (09:00)
[2016-10-06] MEDS ORDERED: Azithromycin 500 MG in Sodium Chloride 0.9% 250 ML IV SCH (09:00)
[2016-10-06] MEDS ORDERED: Calcium Carbonate/Vitamin D3 1500 MG-200 Units Tab PO SCH (09:00)
[2016-10-06] MEDS: Calcium Carbonate 600 MG Tab PO SCH (09:47)
[2016-10-06] MEDS: guaiFENesin 600 MG Tab.ER PO SCH ×2 (09:47→20:20)
[2016-10-06] MEDS: Benzonatate 100 MG Cap PO SCH ×3 (09:47→20:19)
--- NOTE | 2016-10-06 11:41 | CR ---
Chest: Frontal view of the chest was obtained. Comparison: Previous chest x-ray of 01/10/15. Heart size and mediastinum are normal. Increased interstitial change within both lungs as an interval change is seen from prior exam. No alveolar type densities are seen. Bony structures appear within normal limits for the patient's age. Plate and screws affix a previous proximal humeral fracture. Impression: 1. Increased interstitial change from prior exam. Please see subsequent CT report for further details. Diagnostic code #3
--- NOTE | 2016-10-06 11:41 | CR ---
Lumbar spine: AP, lateral and coned-down lateral views centered to the lumbosacral junction were obtained. Mild disc space narrowing is noted at T12-L1. Other disc spaces within the lumbar spine are preserved. Vertebral body heights are maintained. Minimal scattered endplate osteophytes are seen. Pedicles as well as visualized transverse and spinous processes are intact. No subluxation or fracture is seen. Vascular calcification noted within the aorta. Impression: 1. Disc space narrowing at T12-L1. 2. Other incidental findings. Diagnostic code #2
[2016-10-06] MEDS: Acetaminophen/HYDROcodone 325-5 MG Tab PO PRN (14:35)
[2016-10-06] MEDS: Pantoprazole 40 MG Tab.CR PO SCH ×2 (14:35→15:54)
--- NOTE | 2016-10-06 18:00 | PCM.PN ---
- General Info Date of Service: 10/06/16 Admission Dx/Problem (Free Text): Admission Diagnosis/Problem Admission Diagnosis/Problem Atypical pneumonia Subjective Update: Follow up Functional Status: Reports: pain controlled, tolerating diet, ambulating, urinating. Denies: new symptoms - Review of Systems General: Denies: Fever, Chills HEENT: Reports: no symptoms Pulmonary: Reports: cough. Denies: shortness of breath Cardiovascular: Reports: No Symptoms Gastrointestinal: Denies: Abdominal pain, Nausea, Vomiting Genitourinary: Reports: no symptoms Musculoskeletal: Reports: no symptoms Skin: Denies: cyanosis, pallor, rash Neurological: Denies: Confusion, Difficulty Walking, Weakness, Gait Disturbance Psychiatric: Denies: depression, anxiety, agitation, hallucinations Systems Review Comment:: No overnight issues. She is feeling much better. She still coughs alot but nothing comes up. She has no other complaints. - Patient Data Vitals - most recent: Last Vital Signs Temp 36.9 C 10/06/16 16:25 Pulse 83 10/06/16 16:25 Resp 14 10/06/16 16:25 BP 107/49 L 10/06/16 16:25 Pulse Ox 93 L 10/06/16 16:25 Weight - most recent: 68.039 kg I&O - last 24 hours: Intake & Output 10/06/16 10/06/16 10/06/16 06:59 14:59 22:59 Intake Total 6042 504 4408 Output Total 500 Balance 1567 210 940 Lab Results last 24 hrs: Laboratory Results - last 24 hr 10/06/16 10/06/16 10/06/16 Range/Units 06:24 06:24 06:24 WBC 9.72 (3.98-10.04) K/mm3 RBC 3.40 L (3.98-5.22) M/mm3 Hgb 10.4 L (11.2-15.7) gm/L Hct 31.8 L (34.1-44.9) % MCV 93.5 (79.4-94.8) fl MCH 30.6 (25.6-32.2) pg MCHC 32.7 (32.2-35.5) g/dl RDW Std Deviation 46.1 (36.4-46.3) fL Plt Count 268 (182-369) K/mm3 MPV 9.7 (9.4-12.3) fl Neut % (Auto) 73.5 H (34.0-71.1) % Lymph % (Auto) 12.6 L (19.3-51.7) % [place] % (Auto) 10.1 (4.7-12.5) % Eos % (Auto) 3.0 (0.7-5.8) Baso % (Auto) 0.3 (0.1-1.2) % Neut # (Auto) 7.15 H (1.56-6.13) K/mm3 Lymph # (Auto) 1.22 (1.18-3.74) K/mm3 [place] # (Auto) 0.98 H (0.24-0.36) K/mm3 Eos # (Auto) 0.29 (0.04-0.36) K/mm3 Baso # (Auto) 0.03 (0.01-0.08) K/mm3 Manual Slide Review Normal smear Sodium 138 (136-145) mEq/L Potassium 4.8 (3.5-5.1) mEq/L Chloride 109 H (98-107) mEq/L Carbon Dioxide 19 L (21-32) mEq/L Anion Gap 14.8 (5-15) BUN 11 (7-18) mg/dL Creatinine 0.9 (0.55-1.02) mg/dL Est Cr Clr Drug Dosing 39.99 mL/min Estimated GFR (MDRD) > 60 (>60) mL/min BUN/Creatinine Ratio 12.2 L (14-18) Glucose 96 (83-115) mg/dL Calcium 8.1 L (8.5-10.1) mg/dL Magnesium 2.0 (1.8-2.4) mg/dl C-Reactive Protein 19.2 H* (<1.0) mg/dL Med Orders - Current: Current Medications Acetaminophen (Tylenol) 650 mg PO Q4H PRN PRN Reason: Pain (Mild 1-3)/fever Hydrocodone Bitart/Acetaminophen ([place] 325-5 Mg) 1 tab PO Q4H PRN PRN Reason: Pain (moderate 4-6) Last Admin: 10/06/16 14:35 Dose: 1 tab Albuterol/Ipratropium (Duoneb 3.0-0.5 Mg/3 Ml) 3 ml NEB Q4HRRT PRN PRN Reason: Wheezing Last Admin: 10/06/16 11:21 Dose: 3 ml Benzonatate (Tessalon Perles) 200 mg PO TID [facility] Last Admin: 10/06/16 14:35 Dose: 200 mg Bisacodyl (Dulcolax) 5 mg PO DAILY PRN PRN Reason: Constipation Calcium Carbonate/Glycine (Calcium Carbonate) 1,200 mg PO DAILY [facility] Last Admin: 10/06/16 09:47 Dose: 1,200 mg Guaifenesin (Mucinex) 1,200 mg PO BID [facility] Last Admin: 10/06/16 09:47 Dose: 1,200 mg Hydralazine HCl (Apresoline) 20 mg IVPUSH Q4H PRN PRN Reason: Hypertension Hydromorphone HCl (Dilaudid) 0.25 mg IVPUSH Q2H PRN PRN Reason: Pain (severe 7-10) Promethazine HCl 12.5 mg/ (Sodium Chloride) 50.5 mls @ 100 mls/hr IV Q6H PRN PRN Reason: Nausea/Vomiting Ceftriaxone Sodium 1 gm/ (Sodium Chloride) 100 mls @ 200 mls/hr IV Q24H [facility] Azithromycin 500 mg/ Sodium (Chloride) 250 mls @ 250 mls/hr IV Q24H [facility] Last Admin: 10/06/16 00:53 Dose: 250 mls/hr Lorazepam (Ativan) 0.5 mg IV Q6H PRN PRN Reason: Anxiety Magnesium Sulfate (Pharmacy To Dose - Magnesium Replacement) 1 dose .XX ASDIRECTED [facility] Metoprolol Tartrate (Lopressor) 5 mg IVPUSH Q4H PRN PRN Reason: Tachycardia Ondansetron HCl (Zofran) 4 mg IV Q6H PRN PRN Reason: Nausea/Vomiting Pantoprazole Sodium (Protonix) 40 mg PO BIDAC [facility] Last Admin: 10/06/16 15:54 Dose: Not Given Pneumococcal Polyvalent Vaccine (Pneumovax 23) 0.5 ml SUBCUT .ONCE ONE Stop: 10/07/16 09:01 Polyethylene Glycol (Miralax) 17 gm PO DAILY PRN PRN Reason: Constipation Potassium Chloride (Pharmacy To Dose - Potassium Replacement) 1 dose .XX ASDIRECTED [facility] Senna/Docusate Sodium (Senna Plus) 1 tab PO BID PRN PRN Reason: Constipation Temazepam (Restoril) 7.5 mg PO BEDTIME PRN PRN Reason: Sleep Discontinued Medications Albuterol/Ipratropium (Duoneb 3.0-0.5 Mg/3 Ml) 3 ml NEB ONETIME ONE Stop: 10/05/16 16:12 Last Admin: 10/05/16 16:29 Dose: 3 ml Albuterol/Ipratropium (Duoneb 3.0-0.5 Mg/3 Ml) Confirm Administered Dose 3 ml .ROUTE .STK-MED ONE Stop: 10/05/16 23:00 Last Admin: 10/05/16 23:08 Dose: 3 ml Calcium Carbonate (Calcium Carbonate/Vitamin D 1500 Mg-200 Unit) 1 tab PO DAILY [facility] Famotidine (Pepcid) 20 mg PO BID [facility] Last Admin: 10/05/16 22:37 Dose: 20 mg Dextrose/Sodium Chloride (Dextrose 5%-Normal Saline) 1,000 mls @ 999 mls/hr IV ASDIRECTED [facility] Last Admin: 10/05/16 16:22 Dose: 999 mls/hr Sodium Chloride (Normal Saline) 100 mls @ 80 mls/hr IV ASDIRECTED [facility] Last Admin: 10/05/16 19:07 Dose: 80 mls/hr Ceftriaxone Sodium 2 gm/ (Sodium Chloride) 100 mls @ 200 mls/hr IV ONETIME ONE Stop: 10/05/16 19:52 Last Admin: 10/05/16 19:40 Dose: 200 mls/hr Potassium Chloride/Sodium Chloride (Normal Saline With 20 Meq Kcl) 1,000 mls @ 125 mls/hr IV ASDIRECTED [facility] Last Admin: 10/06/16 04:47 Dose: 125 mls/hr Azithromycin 500 mg/ Sodium (Chloride) 250 mls @ 250 mls/hr IV Q24H [facility] Magnesium Sulfate (Magnesium Sulfate 2 Gm In Water 50 Ml) 50 mls @ 50 mls/hr IV ONETIME ONE Stop: 10/05/16 22:29 Last Admin: 10/05/16 22:38 Dose: 50 mls/hr Iopamidol (Isovue-370 (76%)) 100 ml IVPUSH ONETIME ONE Stop: 10/05/16 18:45 Last Admin: 10/05/16 19:07 Dose: 70 ml Miscellaneous Information (Remove Patch) 1 ea TRDERM DAILY [facility] Nicotine (Habitrol) 21 mg TRDERM DAILY [facility] Potassium Chloride (Klor-Con M20) 20 meq PO Q3H [facility] Stop: 10/06/16 00:31 Last Admin: 10/06/16 00:54 Dose: 20 meq Sodium Chloride (Saline Flush) 10 ml FLUSH ONETIME PRN PRN Reason: IV FLUSH Last Admin: 10/05/16 19:07 Dose: 10 ml Temazepam (Restoril) 7.5 mg PO BEDTIME PRN PRN Reason: Sleep - Exam Quality Assessment: No: supplemental oxygen General: alert, oriented, cooperative, no acute distress HEENT: Pupils equal, Pupils reactive, EOMI, Mucous membr. moist/pink Neck: supple, trachea midline, no JVD, no thyromegaly Lungs: Normal respiratory effort, Decreased breath sounds, Wheezing (anterio expiratory wheezing) Cardiovascular: Regular Rate, Regular Rhythm Abdomen: bowel sounds present, soft, no tenderness, no distension (Female) Exam: Deferred Back Exam: Normal Inspection, Decreased Range of Motion Extremities: no edema, normal pulses, no tenderness/swelling, no clubbing, no cyanosis, no calf tenderness Skin: warm, dry, intact Neurological: no new focal deficit Psy/Mental Status: alert, normal affect, normal mood - Problem List Review Problem List Initiated/Reviewed/Updated: Yes - My Orders Last 24 Hours: My Active Orders 10/05/16 20:52 Height and Weight [RC] 04 Oxygen Therapy [RC] PRN Up With Assistance [RC] ASDIRECTED Up ad Angélica [RC] ASDIRECTED VTE/DVT Education [RC] Vital Signs [RC] Q4HR Acetaminophen [Tylenol] 650 mg PO Q4H PRN Acetaminophen/HYDROcodone [[place] 325-5 MG] 1 tab PO Q4H PRN Bisacodyl [Dulcolax] 5 mg PO DAILY PRN Docusate Sodium/Sennosides [Senna Plus] 1 tab PO BID PRN HYDROmorphone [Dilaudid] 0.25 mg IVPUSH Q2H PRN LORazepam [Ativan] 0.5 mg IV Q6H PRN Metoprolol Tartrate [Lopressor] 5 mg IVPUSH Q4H PRN Ondansetron [Zofran] 4 mg IV Q6H PRN Polyethylene Glycol 3350 [MiraLAX] 17 gm PO DAILY PRN Promethazine [Phenergan] 12.5 mg Sodium Chloride 0.9% [Normal Saline] 50 ml IV Q6H hydrALAZINE [Apresoline] 20 mg IVPUSH Q4H PRN Resuscitation Status Routine 10/05/16 20:53 Intake and Output [RC] 04,16 Sequential Compression Device [OM.PC] Per Unit Routine 10/05/16 20:54 Antiembolic Devices [RC] 10/05/16 20:55 Consult to Case Management [CONS] Routine Consult to Call Center Assistant [CONS] Routine Consult to Spiritual Care [CONS] Routine OT Evaluation and Treatment [CONS] Routine PT Evaluation and Treatment [CONS] Routine Respiratory Care Assess and Treatment [CONS] Routine CULTURE SPUTUM + SMEAR [RM] Stat 10/05/16 20:58 Incentive Spirometry [RT Incentive Spirometry] [RC] ASDIRECTED 10/05/16 21:00 Magnesium Rep Pharmacy to Dose [Pharmacy to Dose - Magnesium Replacement] 1 dose .XX ASDIRECTED Potassium Rep Pharmacy to Dose [Pharmacy to Dose - Potassium Replacement] 1 dose .XX ASDIRECTED guaiFENesin [Mucinex] 1,200 mg PO BID 10/05/16 22:49 Albuterol/Ipratropium [DuoNeb 3.0-0.5 MG/3 ML] 3 ml NEB Q4HRRT PRN 10/05/16 23:30 Azithromycin [Zithromax] 500 mg Sodium Chloride 0.9% [Normal Saline] 250 ml IV Q24H 10/05/16 Dinner Regular Diet [DIET] 10/06/16 07:22 Temazepam [Restoril] 7.5 mg PO BEDTIME PRN 10/06/16 09:00 Benzonatate [Tessalon Perles] 200 mg PO TID Calcium Carbonate 1,200 mg PO DAILY 10/06/16 10:55 Chest Physiotherapy [RT Chest Physiotherapy] [RC] ASDIRECTED 10/06/16 12:15 RESPIRATORY PANEL BY PCR [MREF] Routine 10/06/16 14:40 STREP PNEUMONIAE ANTIGEN [MREF] Routine 10/06/16 20:00 cefTRIAXone [Rocephin] 1 gm Sodium Chloride 0.9% [Normal Saline] 100 ml IV Q24H 10/07/16 05:11 BASIC METABOLIC PANEL,BMP [CHEM] AM CBC WITH AUTO DIFF [HEME] AM CRP [C-REACTIVE PROTEIN] [CHEM] AM MAGNESIUM [CHEM] AM 10/07/16 09:00 Pneumococcal Polyvalent-23 Vac [Pneumovax 23] 0.5 ml SUBCUT .ONCE ONE 10/08/16 05:11 BASIC METABOLIC PANEL,BMP [CHEM] AM CBC WITH AUTO DIFF [HEME] AM CRP [C-REACTIVE PROTEIN] [CHEM] AM MAGNESIUM [CHEM] AM 10/09/16 05:11 BASIC METABOLIC PANEL,BMP [CHEM] AM CBC WITH AUTO DIFF [HEME] AM CRP [C-REACTIVE PROTEIN] [CHEM] AM MAGNESIUM [CHEM] AM 10/10/16 05:11 BASIC METABOLIC PANEL,BMP [CHEM] AM CBC WITH AUTO DIFF [HEME] AM CRP [C-REACTIVE PROTEIN] [CHEM] AM MAGNESIUM [CHEM] AM 10/11/16 05:11 CRP [C-REACTIVE PROTEIN] [CHEM] AM - Plan Plan:: Assessment/Plan: Acute: Community Acquired Pneumonia - Multi-focal Areas of Interstitial Change: Pulmonary Fibrosis vs Interstitial PNA - Risk factor: Still smokes - Sputum Cx/Sx and Strep Ag Test - Mycoplasma AG negative - IV antibiotics with Azith/Rocephin, Bronchodilators, Decongestant/ Expectorant, RT Care, FV/IS As directed - Serial CXR - Blood CX negative x 2 for 1 day - CRP 22--> now 19 - WBC 10 --> 9 Probable Interstitial Fibrosis - Advised to quit smoking - Pulmonary Eval after discharge Nicotine Dependence - Still smokes - Advised to quit smoking - Nicotine Patch daily Resolved: Elevated D-Dimer - CTA negative Hypokalemia - K 3.4 Likely 2/2 inadequate intake - Pharmacy to replete and monitor Hypotension - BP on presentation 93/55 mmHg - Has since improved with fluid challenge Plan: She is clinically stable Continue current treatment Chest Physiotherapy per RT Routine AM Labs Continue PT/OT/RT SW/CM for d/c planning Code status:1
[2016-10-06] MEDS: cefTRIAXone 1 GM in Sodium Chloride 0.9% 100 ML IV SCH (20:20)
[2016-10-06] MEDS: Saccharomyces Boulardii (Probiotic) 250 MG Cap PO SCH (20:20)
[2016-10-07] MEDS: Pantoprazole 40 MG Tab.CR PO SCH ×2 (05:06→16:55)
[2016-10-07] MEDS: Albuterol/Ipratropium 3.0-0.5 MG/3 ML Neb Soln NEB PRN (05:19)
[2016-10-07] MEDS: Acetaminophen/HYDROcodone 325-5 MG Tab PO PRN ×2 (05:34→16:55)
[2016-10-07] MEDS ORDERED: Magnesium Sulfate/Water 2 GM in Premix Bag 1 BAG IV ONE (07:15)
[2016-10-07] MEDS: Saccharomyces Boulardii (Probiotic) 250 MG Cap PO SCH ×2 (08:27→22:13)
[2016-10-07] MEDS: Calcium Carbonate 600 MG Tab PO SCH (08:27)
[2016-10-07] MEDS: guaiFENesin 600 MG Tab.ER PO SCH ×2 (08:27→22:14)
[2016-10-07] MEDS: Benzonatate 100 MG Cap PO SCH ×3 (08:28→22:14)
[2016-10-07] MEDS ORDERED: Pneumococcal Polyvalent-23 Vaccine 0.5 ML SDV SUBCUT ONE (09:00)
--- NOTE | 2016-10-07 09:10 | PCM.PN ---
- General Info Date of Service: 10/07/16 Admission Dx/Problem (Free Text): Admission Diagnosis/Problem Admission Diagnosis/Problem Atypical pneumonia Subjective Update: Follow up Functional Status: Reports: pain controlled, tolerating diet, ambulating, urinating - Review of Systems General: Reports: Fever, Weakness, Fatigue, Malaise, Chills HEENT: Reports: no symptoms Pulmonary: Reports: cough, sputum Cardiovascular: Denies: Chest Pain Gastrointestinal: Denies: Abdominal pain, Nausea, Vomiting Genitourinary: Reports: no symptoms Musculoskeletal: Reports: no symptoms Skin: Denies: cyanosis, pallor, diaphoresis, rash Neurological: Denies: Confusion, Difficulty Walking, Weakness, Gait Disturbance Psychiatric: Denies: confusion, depression, anxiety, agitation, cravings, hallucinations Systems Review Comment:: No overnight or acute issues. She feels much better. She now starts to expectorate phlegm. She has no new complaints. - Patient Data Vitals - most recent: Last Vital Signs Temp 36.6 C 10/07/16 09:01 Pulse 73 10/07/16 09:01 Resp 16 10/07/16 09:01 BP 117/70 10/07/16 09:01 Pulse Ox 94 L 10/07/16 09:01 Weight - most recent: 74.162 kg I&O - last 24 hours: Intake & Output 10/06/16 10/07/16 10/07/16 22:59 06:59 14:59 Intake Total 1650 950 Output Total 500 300 Balance 1150 650 Lab Results last 24 hrs: Laboratory Results - last 24 hr 10/07/16 10/07/16 Range/Units 04:50 04:50 WBC 9.57 (3.98-10.04) K/mm3 RBC 3.43 L (3.98-5.22) M/mm3 Hgb 10.5 L (11.2-15.7) gm/L Hct 32.1 L (34.1-44.9) % MCV 93.6 (79.4-94.8) fl MCH 30.6 (25.6-32.2) pg MCHC 32.7 (32.2-35.5) g/dl RDW Std Deviation 46.0 (36.4-46.3) fL Plt Count 290 (182-369) K/mm3 MPV 10.2 (9.4-12.3) fl Neut % (Auto) 67.4 (34.0-71.1) % Lymph % (Auto) 15.3 L (19.3-51.7) % [place] % (Auto) 11.4 (4.7-12.5) % Eos % (Auto) 4.8 (0.7-5.8) Baso % (Auto) 0.4 (0.1-1.2) % Neut # (Auto) 6.45 H (1.56-6.13) K/mm3 Lymph # (Auto) 1.46 (1.18-3.74) K/mm3 [place] # (Auto) 1.09 H (0.24-0.36) K/mm3 Eos # (Auto) 0.46 H (0.04-0.36) K/mm3 Baso # (Auto) 0.04 (0.01-0.08) K/mm3 Manual Slide Review Normal smear Sodium 134 L (136-145) mEq/L Potassium 4.4 (3.5-5.1) mEq/L Chloride 103 (98-107) mEq/L Carbon Dioxide 20 L (21-32) mEq/L Anion Gap 15.4 H (5-15) BUN 12 (7-18) mg/dL Creatinine 0.9 (0.55-1.02) mg/dL Est Cr Clr Drug Dosing 39.99 mL/min Estimated GFR (MDRD) > 60 (>60) mL/min BUN/Creatinine Ratio 13.3 L (14-18) Glucose 97 (83-115) mg/dL Calcium 8.6 (8.5-10.1) mg/dL Magnesium 1.6 L (1.8-2.4) mg/dl C-Reactive Protein 17.7 H* (<1.0) mg/dL Cecilio Results last 24 hrs: Microbiology 10/06/16 22:12 Gram Stain - Final Sputum - Expectorated Med Orders - Current: Current Medications Acetaminophen (Tylenol) 650 mg PO Q4H PRN PRN Reason: Pain (Mild 1-3)/fever Hydrocodone Bitart/Acetaminophen ([place] 325-5 Mg) 1 tab PO Q4H PRN PRN Reason: Pain (moderate 4-6) Last Admin: 10/07/16 05:34 Dose: 1 tab Albuterol/Ipratropium (Duoneb 3.0-0.5 Mg/3 Ml) 3 ml NEB Q4HRRT PRN PRN Reason: Wheezing Last Admin: 10/07/16 05:19 Dose: 3 ml Benzonatate (Tessalon Perles) 200 mg PO TID [facility] Last Admin: 10/07/16 08:28 Dose: 200 mg Bisacodyl (Dulcolax) 5 mg PO DAILY PRN PRN Reason: Constipation Calcium Carbonate/Glycine (Calcium Carbonate) 1,200 mg PO DAILY [facility] Last Admin: 10/07/16 08:27 Dose: 1,200 mg Guaifenesin (Mucinex) 1,200 mg PO BID [facility] Last Admin: 10/07/16 08:27 Dose: 1,200 mg Hydralazine HCl (Apresoline) 20 mg IVPUSH Q4H PRN PRN Reason: Hypertension Hydromorphone HCl (Dilaudid) 0.25 mg IVPUSH Q2H PRN PRN Reason: Pain (severe 7-10) Promethazine HCl 12.5 mg/ (Sodium Chloride) 50.5 mls @ 100 mls/hr IV Q6H PRN PRN Reason: Nausea/Vomiting Ceftriaxone Sodium 1 gm/ (Sodium Chloride) 100 mls @ 200 mls/hr IV Q24H [facility] Last Admin: 10/06/16 20:20 Dose: 200 mls/hr Azithromycin 500 mg/ Sodium (Chloride) 250 mls @ 250 mls/hr IV Q24H [facility] Last Admin: 10/06/16 22:32 Dose: 250 mls/hr Magnesium Sulfate 2 gm/ Premix 50 mls @ 25 mls/hr IV ONETIME ONE Stop: 10/07/16 09:14 Last Admin: 10/07/16 08:28 Dose: 25 mls/hr Lorazepam (Ativan) 0.5 mg IV Q6H PRN PRN Reason: Anxiety Magnesium Sulfate (Pharmacy To Dose - Magnesium Replacement) 1 dose .XX ASDIRECTED [facility] Metoprolol Tartrate (Lopressor) 5 mg IVPUSH Q4H PRN PRN Reason: Tachycardia Ondansetron HCl (Zofran) 4 mg IV Q6H PRN PRN Reason: Nausea/Vomiting Pantoprazole Sodium (Protonix) 40 mg PO BIDAC [facility] Last Admin: 10/07/16 05:06 Dose: 40 mg Polyethylene Glycol (Miralax) 17 gm PO DAILY PRN PRN Reason: Constipation Potassium Chloride (Pharmacy To Dose - Potassium Replacement) 1 dose .XX ASDIRECTED [facility] Saccharomyces Boulardii (Florastor) 250 mg PO BID [facility] Last Admin: 10/07/16 08:27 Dose: 250 mg Senna/Docusate Sodium (Senna Plus) 1 tab PO BID PRN PRN Reason: Constipation Temazepam (Restoril) 7.5 mg PO BEDTIME PRN PRN Reason: Sleep Discontinued Medications Albuterol/Ipratropium (Duoneb 3.0-0.5 Mg/3 Ml) 3 ml NEB ONETIME ONE Stop: 10/05/16 16:12 Last Admin: 10/05/16 16:29 Dose: 3 ml Albuterol/Ipratropium (Duoneb 3.0-0.5 Mg/3 Ml) Confirm Administered Dose 3 ml .ROUTE .STK-MED ONE Stop: 10/05/16 23:00 Last Admin: 10/05/16 23:08 Dose: 3 ml Calcium Carbonate (Calcium Carbonate/Vitamin D 1500 Mg-200 Unit) 1 tab PO DAILY [facility] Famotidine (Pepcid) 20 mg PO BID [facility] Last Admin: 10/05/16 22:37 Dose: 20 mg Dextrose/Sodium Chloride (Dextrose 5%-Normal Saline) 1,000 mls @ 999 mls/hr IV ASDIRECTED [facility] Last Admin: 10/05/16 16:22 Dose: 999 mls/hr Sodium Chloride (Normal Saline) 100 mls @ 80 mls/hr IV ASDIRECTED [facility] Last Admin: 10/05/16 19:07 Dose: 80 mls/hr Ceftriaxone Sodium 2 gm/ (Sodium Chloride) 100 mls @ 200 mls/hr IV ONETIME ONE Stop: 10/05/16 19:52 Last Admin: 10/05/16 19:40 Dose: 200 mls/hr Potassium Chloride/Sodium Chloride (Normal Saline With 20 Meq Kcl) 1,000 mls @ 125 mls/hr IV ASDIRECTED [facility] Last Admin: 10/06/16 04:47 Dose: 125 mls/hr Azithromycin 500 mg/ Sodium (Chloride) 250 mls @ 250 mls/hr IV Q24H [facility] Magnesium Sulfate (Magnesium Sulfate 2 Gm In Water 50 Ml) 50 mls @ 50 mls/hr IV ONETIME ONE Stop: 10/05/16 22:29 Last Admin: 10/05/16 22:38 Dose: 50 mls/hr Iopamidol (Isovue-370 (76%)) 100 ml IVPUSH ONETIME ONE Stop: 10/05/16 18:45 Last Admin: 10/05/16 19:07 Dose: 70 ml Miscellaneous Information (Remove Patch) 1 ea TRDERM DAILY [facility] Nicotine (Habitrol) 21 mg TRDERM DAILY [facility] Pneumococcal Polyvalent Vaccine (Pneumovax 23) 0.5 ml SUBCUT .ONCE ONE Stop: 10/07/16 09:01 Potassium Chloride (Klor-Con M20) 20 meq PO Q3H [facility] Stop: 10/06/16 00:31 Last Admin: 10/06/16 00:54 Dose: 20 meq Sodium Chloride (Saline Flush) 10 ml FLUSH ONETIME PRN PRN Reason: IV FLUSH Last Admin: 10/05/16 19:07 Dose: 10 ml Temazepam (Restoril) 7.5 mg PO BEDTIME PRN PRN Reason: Sleep - Exam General: alert, oriented, cooperative, no acute distress HEENT: Pupils equal, Pupils reactive, EOMI, Mucous membr. moist/pink Neck: supple, trachea midline, no JVD, no thyromegaly Lungs: Normal respiratory effort, Decreased breath sounds, Wheezing (mild expiratory) Cardiovascular: Regular Rate, Regular Rhythm Abdomen: bowel sounds present, soft, no tenderness, no distension (Female) Exam: Deferred Back Exam: Normal Inspection, Decreased Range of Motion Extremities: no edema, normal pulses, no tenderness/swelling, no clubbing, no cyanosis, no calf tenderness Peripheral Pulses: 2+: Dorsalis Pedis (L), Dorsalis Pedis (R) Skin: warm, dry, intact Neurological: no new focal deficit Psy/Mental Status: alert, normal affect, normal mood - Problem List Review Problem List Initiated/Reviewed/Updated: Yes - My Orders Last 24 Hours: My Active Orders 10/06/16 09:00 Benzonatate [Tessalon Perles] 200 mg PO TID Calcium Carbonate 1,200 mg PO DAILY 10/06/16 10:55 Chest Physiotherapy [RT Chest Physiotherapy] [RC] ASDIRECTED 10/06/16 12:15 RESPIRATORY PANEL BY PCR [MREF] Routine 10/06/16 14:40 STREP PNEUMONIAE ANTIGEN [MREF] Routine 10/06/16 20:00 cefTRIAXone [Rocephin] 1 gm Sodium Chloride 0.9% [Normal Saline] 100 ml IV Q24H 10/06/16 21:00 Saccharomyces Boulardii [Florastor] 250 mg PO BID 10/06/16 22:12 CULTURE SPUTUM + SMEAR [RM] Stat 10/07/16 07:15 Magnesium Sulfate/Water [Magnesium Sulfate 2 GM in Water 50 ML] 2 gm Premix Bag 1 bag IV ONETIME 10/07/16 08:27 Chest 2V [CR] Routine 10/08/16 05:11 BASIC METABOLIC PANEL,BMP [CHEM] AM CBC WITH AUTO DIFF [HEME] AM CRP [C-REACTIVE PROTEIN] [CHEM] AM MAGNESIUM [CHEM] AM 10/09/16 05:11 BASIC METABOLIC PANEL,BMP [CHEM] AM CBC WITH AUTO DIFF [HEME] AM CRP [C-REACTIVE PROTEIN] [CHEM] AM MAGNESIUM [CHEM] AM 10/10/16 05:11 BASIC METABOLIC PANEL,BMP [CHEM] AM CBC WITH AUTO DIFF [HEME] AM CRP [C-REACTIVE PROTEIN] [CHEM] AM MAGNESIUM [CHEM] AM 10/11/16 05:11 CRP [C-REACTIVE PROTEIN] [CHEM] AM - Plan Plan:: Assessment/Plan: Acute: Community Acquired Pneumonia - Multi-focal Areas of Interstitial Change: Pulmonary Fibrosis vs Interstitial PNA - Risk factor: Still smokes - Sputum Cx: Prelim - Strep Ag Test pending - Mycoplasma AG negative - Continue IV antibiotics with Azith/Rocephin, Bronchodilators, Decongestant/ Expectorant, RT Care, FV/IS As directed - Follow CXR: patchy nodular areas of increased density within both lungs ( appears worsening as those pulmonary secretion/phlegm starts to loosen up) - Blood CX negative x 2 for 1 day - CRP 22--> 19 --> 17 Probable Interstitial Fibrosis - Advised to quit smoking - Pulmonary Eval after discharge Nicotine Dependence - Still smokes - Advised to quit smoking - Nicotine Patch daily Hypomagnesemia - Mg 1.6 - Pharmacy to replete and monitor Resolved: Elevated D-Dimer - CTA negative Hypokalemia - K 3.4 Likely 2/2 inadequate intake - Pharmacy to replete and monitor Hypotension - BP on presentation 93/55 mmHg - Has since improved with fluid challenge Plan: She remains clinically stable She is slowly responding to treatment Continue current treatment Chest Physiotherapy per RT Routine AM Labs Encourage IS/FV use Continue PT/OT/RT SW/CM for d/c planning Additional orders as above Code status:1 LOS anticipate > 96hr due to slow response to treatment
--- NOTE | 2016-10-07 11:29 | CR ---
Chest: Two views of the chest are obtained. Comparison: Previous chest CT of 10/05/16 and chest x-ray of 10/05/16. Patchy nodular areas of density noted within both lungs. Findings are fairly stable from prior chest CT. Heart size is normal. Tortuous thoracic aorta is seen. Plate and screws are noted within the proximal humerus. Mild degenerative change and scoliosis is present within the spine. Impression: 1. Patchy nodular areas of increased density within both lungs. No appreciable change seen from prior chest CT. Diagnostic code #3
--- NOTE | 2016-10-07 16:40 | PCM.SN ---
- Free Text/Narrative Note: Hanta IgM and IgG: both negative
[2016-10-07] MEDS: cefTRIAXone 1 GM in Sodium Chloride 0.9% 100 ML IV SCH (22:13)
[2016-10-07] MEDS: Azithromycin 500 MG in Sodium Chloride 0.9% 250 ML IV SCH (23:30)
[2016-10-08] MEDS: Pantoprazole 40 MG Tab.CR PO SCH ×2 (06:07→16:30)
[2016-10-08] MEDS: Albuterol/Ipratropium 3.0-0.5 MG/3 ML Neb Soln NEB PRN (06:17)
--- NOTE | 2016-10-08 08:08 | PCM.PN ---
- General Info Date of Service: 10/08/16 Admission Dx/Problem (Free Text): Admission Diagnosis/Problem Admission Diagnosis/Problem Atypical pneumonia Subjective Update: Follow up Functional Status: Reports: pain controlled, tolerating diet, ambulating, urinating, new symptoms - Review of Systems General: Denies: Fever, Weakness, Fatigue, Malaise, Chills HEENT: Reports: no symptoms Pulmonary: Reports: cough, sputum. Denies: shortness of breath Cardiovascular: Denies: Chest Pain Gastrointestinal: Denies: Abdominal pain, Nausea, Vomiting Genitourinary: Reports: no symptoms Musculoskeletal: Reports: no symptoms Skin: Denies: cyanosis, pallor, pruritis, rash Neurological: Denies: Pre-Existing Deficit, Difficulty Walking, Weakness, Gait Disturbance Psychiatric: Denies: confusion, depression, anxiety, cravings Systems Review Comment:: No overnight or acute issues. She states "I feel much better. I don't have that weigh in my chest anymore". She is coughing up more phlegm. Her Mg is low at 1.6 - Patient Data Vitals - most recent: Last Vital Signs Temp 36.5 C 10/07/16 21:08 Pulse 78 10/07/16 21:08 Resp 18 10/07/16 21:08 BP 120/68 10/07/16 21:08 Pulse Ox 93 L 10/08/16 06:20 Weight - most recent: 74.389 kg I&O - last 24 hours: Intake & Output 10/07/16 10/08/16 10/08/16 22:59 06:59 14:59 Intake Total 375 350 Output Total 150 700 Balance 225 -350 Lab Results last 24 hrs: Laboratory Results - last 24 hr 10/06/16 10/08/16 10/08/16 Range/Units 06:24 04:24 04:24 WBC 9.57 (3.98-10.04) K/mm3 RBC 3.43 L (3.98-5.22) M/mm3 Hgb 10.4 L (11.2-15.7) gm/L Hct 32.1 L (34.1-44.9) % MCV 93.6 (79.4-94.8) fl MCH 30.3 (25.6-32.2) pg MCHC 32.4 (32.2-35.5) g/dl RDW Std Deviation 45.4 (36.4-46.3) fL Plt Count 287 (182-369) K/mm3 MPV 10.1 (9.4-12.3) fl Neut % (Auto) 64.8 (34.0-71.1) % Lymph % (Auto) 16.6 L (19.3-51.7) % [place] % (Auto) 11.2 (4.7-12.5) % Eos % (Auto) 6.4 H (0.7-5.8) Baso % (Auto) 0.4 (0.1-1.2) % Neut # (Auto) 6.20 H (1.56-6.13) K/mm3 Lymph # (Auto) 1.59 (1.18-3.74) K/mm3 [place] # (Auto) 1.07 H (0.24-0.36) K/mm3 Eos # (Auto) 0.61 H (0.04-0.36) K/mm3 Baso # (Auto) 0.04 (0.01-0.08) K/mm3 Manual Slide Review Normal smear Sodium 136 (136-145) mEq/L Potassium 3.9 (3.5-5.1) mEq/L Chloride 103 (98-107) mEq/L Carbon Dioxide 23 (21-32) mEq/L Anion Gap 13.9 (5-15) BUN 12 (7-18) mg/dL Creatinine 0.8 (0.55-1.02) mg/dL Est Cr Clr Drug Dosing 44.99 mL/min Estimated GFR (MDRD) > 60 (>60) mL/min BUN/Creatinine Ratio 15.0 (14-18) Glucose 94 (83-115) mg/dL Calcium 8.4 L (8.5-10.1) mg/dL Magnesium 1.5 L (1.8-2.4) mg/dl C-Reactive Protein 16.3 H* (<1.0) mg/dL Hantavirus IgG Ab Not performed Hantavirus IgM Ab Negative Cecilio Results last 24 hrs: Microbiology 10/06/16 12:15 Respiratory Virus Panel (PCR) ([facility]ILIO) - Final Nasopharyngeal Swab 10/06/16 14:40 Streptococcus pneumoniae Antigen (M - Final Urine - Bladder 10/06/16 22:12 Gram Stain - Final Sputum - Expectorated Med Orders - Current: Current Medications Acetaminophen (Tylenol) 650 mg PO Q4H PRN PRN Reason: Pain (Mild 1-3)/fever Hydrocodone Bitart/Acetaminophen ([place] 325-5 Mg) 1 tab PO Q4H PRN PRN Reason: Pain (moderate 4-6) Last Admin: 10/07/16 16:55 Dose: 1 tab Albuterol/Ipratropium (Duoneb 3.0-0.5 Mg/3 Ml) 3 ml NEB Q4HRRT PRN PRN Reason: Wheezing Last Admin: 10/08/16 06:17 Dose: 3 ml Benzonatate (Tessalon Perles) 200 mg PO TID [facility] Last Admin: 10/07/16 22:14 Dose: 200 mg Bisacodyl (Dulcolax) 5 mg PO DAILY PRN PRN Reason: Constipation Calcium Carbonate/Glycine (Calcium Carbonate) 1,200 mg PO DAILY [facility] Last Admin: 10/07/16 08:27 Dose: 1,200 mg Guaifenesin (Mucinex) 1,200 mg PO BID [facility] Last Admin: 10/07/16 22:14 Dose: 1,200 mg Hydralazine HCl (Apresoline) 20 mg IVPUSH Q4H PRN PRN Reason: Hypertension Hydromorphone HCl (Dilaudid) 0.25 mg IVPUSH Q2H PRN PRN Reason: Pain (severe 7-10) Promethazine HCl 12.5 mg/ (Sodium Chloride) 50.5 mls @ 100 mls/hr IV Q6H PRN PRN Reason: Nausea/Vomiting Ceftriaxone Sodium 1 gm/ (Sodium Chloride) 100 mls @ 200 mls/hr IV Q24H [facility] Last Admin: 10/07/16 22:13 Dose: 200 mls/hr Azithromycin 500 mg/ Sodium (Chloride) 250 mls @ 250 mls/hr IV Q24H [facility] Last Admin: 10/07/16 23:30 Dose: 250 mls/hr Magnesium Sulfate 2 gm/ Premix 50 mls @ 25 mls/hr IV Q4H [facility] Stop: 10/08/16 13:44 Lorazepam (Ativan) 0.5 mg IV Q6H PRN PRN Reason: Anxiety Magnesium Sulfate (Pharmacy To Dose - Magnesium Replacement) 1 dose .XX ASDIRECTED [facility] Metoprolol Tartrate (Lopressor) 5 mg IVPUSH Q4H PRN PRN Reason: Tachycardia Ondansetron HCl (Zofran) 4 mg IV Q6H PRN PRN Reason: Nausea/Vomiting Pantoprazole Sodium (Protonix) 40 mg PO BIDAC [facility] Last Admin: 10/08/16 06:07 Dose: 40 mg Polyethylene Glycol (Miralax) 17 gm PO DAILY PRN PRN Reason: Constipation Potassium Chloride (Pharmacy To Dose - Potassium Replacement) 1 dose .XX ASDIRECTED [facility] Saccharomyces Boulardii (Florastor) 250 mg PO BID [facility] Last Admin: 10/07/16 22:13 Dose: 250 mg Senna/Docusate Sodium (Senna Plus) 1 tab PO BID PRN PRN Reason: Constipation Temazepam (Restoril) 7.5 mg PO BEDTIME PRN PRN Reason: Sleep Discontinued Medications Albuterol/Ipratropium (Duoneb 3.0-0.5 Mg/3 Ml) 3 ml NEB ONETIME ONE Stop: 10/05/16 16:12 Last Admin: 10/05/16 16:29 Dose: 3 ml Albuterol/Ipratropium (Duoneb 3.0-0.5 Mg/3 Ml) Confirm Administered Dose 3 ml .ROUTE .STK-MED ONE Stop: 10/05/16 23:00 Last Admin: 10/05/16 23:08 Dose: 3 ml Calcium Carbonate (Calcium Carbonate/Vitamin D 1500 Mg-200 Unit) 1 tab PO DAILY [facility] Famotidine (Pepcid) 20 mg PO BID [facility] Last Admin: 10/05/16 22:37 Dose: 20 mg Dextrose/Sodium Chloride (Dextrose 5%-Normal Saline) 1,000 mls @ 999 mls/hr IV ASDIRECTED [facility] Last Admin: 10/05/16 16:22 Dose: 999 mls/hr Sodium Chloride (Normal Saline) 100 mls @ 80 mls/hr IV ASDIRECTED [facility] Last Admin: 10/05/16 19:07 Dose: 80 mls/hr Ceftriaxone Sodium 2 gm/ (Sodium Chloride) 100 mls @ 200 mls/hr IV ONETIME ONE Stop: 10/05/16 19:52 Last Admin: 10/05/16 19:40 Dose: 200 mls/hr Potassium Chloride/Sodium Chloride (Normal Saline With 20 Meq Kcl) 1,000 mls @ 125 mls/hr IV ASDIRECTED [facility] Last Admin: 10/06/16 04:47 Dose: 125 mls/hr Azithromycin 500 mg/ Sodium (Chloride) 250 mls @ 250 mls/hr IV Q24H [facility] Magnesium Sulfate (Magnesium Sulfate 2 Gm In Water 50 Ml) 50 mls @ 50 mls/hr IV ONETIME ONE Stop: 10/05/16 22:29 Last Admin: 10/05/16 22:38 Dose: 50 mls/hr Magnesium Sulfate 2 gm/ Premix 50 mls @ 25 mls/hr IV ONETIME ONE Stop: 10/07/16 09:14 Last Admin: 10/07/16 08:28 Dose: 25 mls/hr Iopamidol (Isovue-370 (76%)) 100 ml IVPUSH ONETIME ONE Stop: 10/05/16 18:45 Last Admin: 10/05/16 19:07 Dose: 70 ml Miscellaneous Information (Remove Patch) 1 ea TRDERM DAILY [facility] Nicotine (Habitrol) 21 mg TRDERM DAILY [facility] Pneumococcal Polyvalent Vaccine (Pneumovax 23) 0.5 ml SUBCUT .ONCE ONE Stop: 10/07/16 09:01 Potassium Chloride (Klor-Con M20) 20 meq PO Q3H [facility] Stop: 10/06/16 00:31 Last Admin: 10/06/16 00:54 Dose: 20 meq Sodium Chloride (Saline Flush) 10 ml FLUSH ONETIME PRN PRN Reason: IV FLUSH Last Admin: 10/05/16 19:07 Dose: 10 ml Temazepam (Restoril) 7.5 mg PO BEDTIME PRN PRN Reason: Sleep - Exam Quality Assessment: No: supplemental oxygen General: alert, oriented, cooperative, no acute distress HEENT: Pupils equal, Pupils reactive, EOMI, Mucous membr. moist/pink Neck: supple, trachea midline, no JVD Lungs: Normal respiratory effort, Wheezing, Other (Much improved aeration) Cardiovascular: Regular Rate, Regular Rhythm Abdomen: bowel sounds present, soft, no tenderness, no distension (Female) Exam: Deferred Back Exam: Normal Inspection, Decreased Range of Motion Extremities: no edema, normal pulses, no tenderness/swelling, no clubbing, no cyanosis, no calf tenderness Skin: warm, dry, intact Neurological: no new focal deficit Psy/Mental Status: alert, normal affect, normal mood - Problem List Review Problem List Initiated/Reviewed/Updated: Yes - My Orders Last 24 Hours: My Active Orders 10/08/16 07:45 Magnesium Sulfate/Water [Magnesium Sulfate 2 GM in Water 50 ML] 2 gm Premix Bag 1 bag IV Q4H 10/09/16 05:11 BASIC METABOLIC PANEL,BMP [CHEM] AM CBC WITH AUTO DIFF [HEME] AM CRP [C-REACTIVE PROTEIN] [CHEM] AM MAGNESIUM [CHEM] AM 10/10/16 05:11 BASIC METABOLIC PANEL,BMP [CHEM] AM CBC WITH AUTO DIFF [HEME] AM CRP [C-REACTIVE PROTEIN] [CHEM] AM MAGNESIUM [CHEM] AM 10/11/16 05:11 CRP [C-REACTIVE PROTEIN] [CHEM] AM - Plan Plan:: Assessment/Plan: Acute: Community Acquired Pneumonia, Improving - Multi-focal Areas of Interstitial Change: Pulmonary Fibrosis vs Interstitial PNA - Risk factor: Still smokes - Sputum Cx: Negative - RVP, Hanta Abs, Strep Ag and Mycoplasma Ag all negative - Continue IV antibiotics with Azith/Rocephin, Bronchodilators, Decongestant/ Expectorant, RT Care, FV/IS As directed - Follow CXR: patchy nodular areas of increased density within both lungs ( appears worsening as those pulmonary secretion/phlegm starts to loosen up) - Blood CX negative x 2 for 2 day - CRP 22--> 19 --> 17--> 16 Probable Interstitial Fibrosis - Advised to quit smoking - Pulmonary Eval after discharge Nicotine Dependence - Still smokes - Advised to quit smoking - Nicotine Patch daily Hypomagnesemia - Mg 1.6--> 1.5 - Pharmacy to replete and monitor Resolved: Elevated D-Dimer - CTA negative Hypokalemia - K 3.4 Likely 2/2 inadequate intake - Pharmacy to replete and monitor Hypotension - BP on presentation 93/55 mmHg - Has since improved with fluid challenge Plan: She remains clinically stable She seems to be coming around slowly Continue Chest Physiotherapy per RT Routine AM Labs Add Mg Ox 400 mg po BID Encourage IS/FV use Continue PT/OT/RT SW/CM for d/c planning Additional orders as above Code status:1 Possible d/c in 1-2 days LOS anticipate > 96hr due to slow response to treatment
[2016-10-08] MEDS: Albuterol 6.7 GM Inhaler INH PRN ×3 (09:22→20:23)
[2016-10-08] MEDS: Calcium Carbonate 600 MG Tab PO SCH (09:32)
[2016-10-08] MEDS: Saccharomyces Boulardii (Probiotic) 250 MG Cap PO SCH ×2 (09:32→20:02)
[2016-10-08] MEDS: guaiFENesin 600 MG Tab.ER PO SCH ×2 (09:32→20:01)
[2016-10-08] MEDS: Magnesium Sulfate/Water 2 GM in Premix Bag 1 BAG IV SCH ×2 (09:33→12:09)
[2016-10-08] MEDS: Acetaminophen/HYDROcodone 325-5 MG Tab PO PRN (09:33)
[2016-10-08] MEDS: Benzonatate 100 MG Cap PO SCH ×3 (09:33→20:02)
[2016-10-08] MEDS: cefTRIAXone 1 GM in Sodium Chloride 0.9% 100 ML IV SCH (19:52)
[2016-10-08] MEDS: Magnesium Oxide 400 MG Tab PO SCH (20:01)
[2016-10-08] MEDS: Azithromycin 500 MG in Sodium Chloride 0.9% 250 ML IV SCH (23:50)
[2016-10-09] MEDS: Acetaminophen/HYDROcodone 325-5 MG Tab PO PRN (01:02)
[2016-10-09] MEDS: Pantoprazole 40 MG Tab.CR PO SCH (05:46)
[2016-10-09] MEDS: guaiFENesin 600 MG Tab.ER PO SCH (09:08)
[2016-10-09] MEDS: Saccharomyces Boulardii (Probiotic) 250 MG Cap PO SCH (09:08)
[2016-10-09] MEDS: Benzonatate 100 MG Cap PO SCH (09:08)
[2016-10-09] MEDS: Calcium Carbonate 600 MG Tab PO SCH (09:08)
[2016-10-09] MEDS: Magnesium Oxide 400 MG Tab PO SCH (09:09)
--- NOTE | 2016-10-09 10:40 | PCM.DCSUM1 ---
Discharge Summary - Hospital Course Brief History: This is a 75 yo elderly white female with past medical hx/o Active Smoking, COPD, PUD, Leg Weakness, Hx/o Rheumatic Fever, PVD and Hx/o Fem- Pop Bypass, GERD who comes in with complaints of generalized weakness associated with dysarthria. She was initially seen at her PCP's office before she as transferred to ED for further evaluation. Patient was found to have PNA on CT scan. - Discharge Data Discharge Date: 10/09/16 Discharge Disposition: Home, Self-Care 01 Condition: Good - Discharge Diagnosis/Problem(s) (1) Atypical pneumonia SNOMED Code(s): 989252095 ICD Code: J18.9 - PNEUMONIA, UNSPECIFIED ORGANISM Status: Acute (2) Pulmonary interstitial fibrosis SNOMED Code(s): 142118730 ICD Code: J84.10 - PULMONARY FIBROSIS, UNSPECIFIED Status: Acute (3) Nicotine abuse SNOMED Code(s): 41198956 ICD Code: Z72.0 - TOBACCO USE Status: Chronic (4) Elevated d-dimer SNOMED Code(s): 399391987 ICD Code: R79.89 - OTHER SPECIFIED ABNORMAL FINDINGS OF BLOOD CHEMISTRY Status: Resolved (5) Hypokalemia SNOMED Code(s): 99467550 ICD Code: E87.6 - HYPOKALEMIA Status: Resolved (6) Hypotension SNOMED Code(s): 40834250 ICD Code: I95.9 - HYPOTENSION, UNSPECIFIED Status: Resolved - Patient Summary/Data Operative Procedure(s) Performed: None Complications: None Consults: Consultations 10/05/16 20:55 Consult to Case Management [CONS] Routine Consult to Clinical Nurse Occupational Medicine [CONS] Routine Consult to Spiritual Care [CONS] Routine OT Evaluation and Treatment [CONS] Routine PT Evaluation and Treatment [CONS] Routine Respiratory Care Assess and Treatment [CONS] Routine Hospital Course: Patient was primarily admitted for medical treatment of interstitial lung pneumonia. Patient was found to have an elevated d-dimer however, she was negative for PE on CT scan. She was noted however with interstitial fibrosis on CTA, which we felt an interval change from her CT scan on . Patient carries a history of heavy smoking, and she still smokes up to this date. Patient was treated appropriately with intravenous antibiotics, bronchodilators , decongestant/expectorant, incentive spirometry, flutter valve, and routine RT care. The patient slowly improved on this regimen. Her viral sputum culture blood culture, and respiratory panel, were all negative. Her hospital course was complicated by e-lytes abnormality. However, we were able to resolve them with supplements. Overall, she has done fairly well since admission. The rest of her chronic medical illness remained stable during this admission. Patient is now ready for discharge. She will go home with additional course of oral Levaquin along with probiotic to complete her treatment. She will also be provided with Tessalon Perles and Robitussin DM for symptomatic control of her bronchitis. She was advised to quit smoking, and to continue using the incentive spirometry , and flutter valve until completion of her treatment. We recommend that she follows a upholstery instructor for her pulmonary fibrosis. We also recommend a follow up chest x-ray in 2-3 weeks to assess the resolution of her pneumonia. Lastly, she was advised to call her primary care for any questions or concerns and for outpatient followup in 1-2 weeks after discharge. Patient expressed understanding and in agreement with the plans as discussed above. All questions were answered. - Patient Instructions Diet: Usual Diet as Tolerated Activity: As Tolerated Driving: Do Not Drive Showering/Bathing: May Shower Notify Provider of: Fever, Increased Pain, Swelling and Redness, Nausea and/or Vomiting Other/Special Instructions: - Please take all medications as directed. - Use Incentive Spirometry (Blue) and Flutter Valve (Green) as directed until your treatment is complete. - Quit smoking. - Recommend you see a upholstery instructor for pulmonary fibrosis. - Recommned follow up CXR 2-3 weeks for resolution of your pneumonia. - Follow up with your doctor in 1-2 weeks. - Call your doctor for any questions or concerns - Discharge Plan Prescriptions/Med Rec: Benzonatate [Tessalon Perles] 200 mg PO TID #30 cap Lactobac Cmb #3/Fos/Pantethine [Probiotic & Acidophilus] 1 each PO DAILY #4 capsule Levofloxacin [Levaquin] 750 mg PO DAILY #4 tablet Magnesium Oxide 800 mg PO DAILY #4 tablet guaiFENesin/Dextromethorphan [Mucinex DM ER 1,200-60 MG] 1 tab PO BID #20 tbmp.12hr Home Medications: Home Meds Omeprazole 40 mg PO BID 01/05/15 [History] Cyclobenzaprine [Flexeril] 10 mg PO TID PRN #40 tablet 01/17/15 [Rx] Calcium Lactate 1,500 mg PO DAILY 10/05/16 [History] Benzonatate [Tessalon Perles] 200 mg PO TID #30 cap 10/09/16 [Rx] Lactobac Cmb #3/Fos/Pantethine [Probiotic & Acidophilus] 1 each PO DAILY #4 capsule 10/09/16 [Rx] Levofloxacin [Levaquin] 750 mg PO DAILY #4 tablet 10/09/16 [Rx] Magnesium Oxide 800 mg PO DAILY #4 tablet 10/09/16 [Rx] guaiFENesin/Dextromethorphan [Mucinex DM ER 1,200-60 MG] 1 tab PO BID #20 tbmp.12hr 10/09/16 [Rx] Patient Handouts: Smoking Cessation, Tips for Success, [id number], Community- Acquired Pneumonia, Adult, [id number] Referrals: Magali Gomes, [employer] TECHNICIAN [Primary Care Provider] - - Discharge Summary/Plan Comment DC Time >30 min.: Yes (45 mins) Discharge Summary/Plan Comment: Discharge to Home - General Info Date of Service: 10/09/16 Admission Dx/Problem (Free Text: Admission Diagnosis/Problem Admission Diagnosis/Problem Atypical pneumonia Subjective Update: Follow up Functional Status: Reports: pain controlled, tolerating diet, ambulating, urinating. Denies: new symptoms - Review of Systems General: Denies: Fever, Weakness, Fatigue, Malaise, Chills HEENT: Reports: no symptoms Pulmonary: Reports: cough, sputum. Denies: wheezing Cardiovascular: Denies: Chest Pain, Palpitations, Dyspnea on Exertion, Edema Gastrointestinal: Denies: Abdominal pain, Nausea, Vomiting Genitourinary: Reports: no symptoms Musculoskeletal: Reports: no symptoms Skin: Denies: cyanosis, pruritis, rash Neurological: Denies: Confusion, Difficulty Walking, Weakness, Gait Disturbance Psychiatric: Denies: depression, anxiety, agitation, cravings Systems Review Comment: No overnight or acute issues. She is feeling way better. She has no new complaints. - Patient Data Vitals - Most Recent: Last Vital Signs Temp 36.8 C 10/09/16 08:28 Pulse 73 10/09/16 08:28 Resp 20 10/09/16 08:28 BP 111/68 10/09/16 08:28 Pulse Ox 91 L 10/09/16 08:28 Weight - Most Recent: 73.255 kg I&O - Last 24 hours: Intake & Output 10/08/16 10/09/16 10/09/16 22:59 06:59 14:59 Intake Total 2350 710 210 Output Total 1050 500 Balance 1300 210 210 Lab Results - Last 24 hrs: Laboratory Results - last 24 hr 10/09/16 10/09/16 Range/Units 04:40 04:40 WBC 9.24 (3.98-10.04) K/mm3 RBC 3.36 L (3.98-5.22) M/mm3 Hgb 10.2 L (11.2-15.7) gm/L Hct 31.5 L (34.1-44.9) % MCV 93.8 (79.4-94.8) fl MCH 30.4 (25.6-32.2) pg MCHC 32.4 (32.2-35.5) g/dl RDW Std Deviation 46.0 (36.4-46.3) fL Plt Count 309 (182-369) K/mm3 MPV 10.1 (9.4-12.3) fl Neut % (Auto) 68.4 (34.0-71.1) % Lymph % (Auto) 16.2 L (19.3-51.7) % [place] % (Auto) 10.0 (4.7-12.5) % Eos % (Auto) 4.5 (0.7-5.8) Baso % (Auto) 0.3 (0.1-1.2) % Neut # (Auto) 6.31 H (1.56-6.13) K/mm3 Lymph # (Auto) 1.50 (1.18-3.74) K/mm3 [place] # (Auto) 0.92 H (0.24-0.36) K/mm3 Eos # (Auto) 0.42 H (0.04-0.36) K/mm3 Baso # (Auto) 0.03 (0.01-0.08) K/mm3 Manual Slide Review Normal smear Sodium 136 (136-145) mEq/L Potassium 4.1 (3.5-5.1) mEq/L Chloride 103 (98-107) mEq/L Carbon Dioxide 25 (21-32) mEq/L Anion Gap 12.1 (5-15) BUN 12 (7-18) mg/dL Creatinine 0.9 (0.55-1.02) mg/dL Est Cr Clr Drug Dosing 39.99 mL/min Estimated GFR (MDRD) > 60 (>60) mL/min BUN/Creatinine Ratio 13.3 L (14-18) Glucose 94 (83-115) mg/dL Calcium 8.5 (8.5-10.1) mg/dL Magnesium 2.0 (1.8-2.4) mg/dl C-Reactive Protein 16.9 H* (<1.0) mg/dL [facility] Results - Last 24 hrs: Microbiology 10/06/16 22:12 Gram Stain - Final Sputum - Expectorated Sputum Culture - Preliminary 10/06/16 12:15 Respiratory Virus Panel (PCR) ([facility]) - Final Nasopharyngeal Swab Med Orders - Current: Current Medications Acetaminophen (Tylenol) 650 mg PO Q4H PRN PRN Reason: Pain (Mild 1-3)/fever Hydrocodone Bitart/Acetaminophen ([place] 325-5 Mg) 1 tab PO Q4H PRN PRN Reason: Pain (moderate 4-6) Last Admin: 10/09/16 01:02 Dose: 1 tab Albuterol (Proventil Hfa) 0 gm INH Q4H PRN PRN Reason: SOB/wheeze Last Admin: 10/08/16 20:23 Dose: 2 puff Albuterol/Ipratropium (Duoneb 3.0-0.5 Mg/3 Ml) 3 ml NEB Q4HRRT PRN PRN Reason: Wheezing Last Admin: 10/08/16 06:17 Dose: 3 ml Benzonatate (Tessalon Perles) 200 mg PO TID [facility] Last Admin: 10/09/16 09:08 Dose: 200 mg Bisacodyl (Dulcolax) 5 mg PO DAILY PRN PRN Reason: Constipation Calcium Carbonate/Glycine (Calcium Carbonate) 1,200 mg PO DAILY [facility] Last Admin: 10/09/16 09:08 Dose: 1,200 mg Guaifenesin (Mucinex) 1,200 mg PO BID [facility] Last Admin: 10/09/16 09:08 Dose: 1,200 mg Hydralazine HCl (Apresoline) 20 mg IVPUSH Q4H PRN PRN Reason: Hypertension Hydromorphone HCl (Dilaudid) 0.25 mg IVPUSH Q2H PRN PRN Reason: Pain (severe 7-10) Promethazine HCl 12.5 mg/ (Sodium Chloride) 50.5 mls @ 100 mls/hr IV Q6H PRN PRN Reason: Nausea/Vomiting Ceftriaxone Sodium 1 gm/ (Sodium Chloride) 100 mls @ 200 mls/hr IV Q24H [facility] Last Admin: 10/08/16 19:52 Dose: 200 mls/hr Azithromycin 500 mg/ Sodium (Chloride) 250 mls @ 250 mls/hr IV Q24H [facility] Last Admin: 10/08/16 23:50 Dose: 250 mls/hr Lorazepam (Ativan) 0.5 mg IV Q6H PRN PRN Reason: Anxiety Magnesium Oxide (Magnesium Oxide) 400 mg PO BID [facility] Last Admin: 10/09/16 09:09 Dose: 400 mg Magnesium Sulfate (Pharmacy To Dose - Magnesium Replacement) 1 dose .XX ASDIRECTED [facility] Metoprolol Tartrate (Lopressor) 5 mg IVPUSH Q4H PRN PRN Reason: Tachycardia Ondansetron HCl (Zofran) 4 mg IV Q6H PRN PRN Reason: Nausea/Vomiting Pantoprazole S[facility]) [facility] Last Admin: 10/09/16 05:46 Dose: 40 mg Polyethylene Glycol (Miralax) 17 gm PO DAILY PRN PRN Reason: Constipation Potassium Chloride (Pharmacy To Dose - Potassium Replacement) 1 dose .XX ASDIRECTED [facility] Saccharomyces Boulardii (Florastor) 250 mg PO BID [facility] Last Admin: 10/09/16 09:08 Dose: 250 mg Senna/Docusate Sodium (Senna Plus) 1 tab PO BID PRN PRN Reason: Constipation Temazepam (Restoril) 7.5 mg PO BEDTIME PRN PRN Reason: Sleep Discontinued Medications Albuterol/Ipratropium (Duoneb 3.0-0.5 Mg/3 Ml) 3 ml NEB ONETIME ONE Stop: 10/05/16 16:12 Last Admin: 10/05/16 16:29 Dose: 3 ml Albuterol/Ipratropium (Duoneb 3.0-0.5 Mg/3 Ml) Confirm Administered Dose 3 ml .ROUTE .STK-MED ONE Stop: 10/05/16 23:00 Last Admin: 10/05/16 23:08 Dose: 3 ml Calcium Carbonate (Calcium Carbonate/Vitamin D 1500 Mg-200 Unit) 1 tab PO DAILY [facility] Famotidine (Pepcid) 20 mg PO BID [facility] Last Admin: 10/05/16 22:37 Dose: 20 mg Dextrose/Sodium Chloride (Dextrose 5%-Normal Saline) 1,000 mls @ 999 mls/hr IV ASDIRECTED [facility] Last Admin: 10/05/16 16:22 Dose: 999 mls/hr Sodium Chloride (Normal Saline) 100 mls @ 80 mls/hr IV ASDIRECTED [facility] Last Admin: 10/05/16 19:07 Dose: 80 mls/hr Ceftriaxone Sodium 2 gm/ (Sodium Chloride) 100 mls @ 200 mls/hr IV ONETIME ONE Stop: 10/05/16 19:52 Last Admin: 10/05/16 19:40 Dose: 200 mls/hr Potassium Chloride/Sodium Chloride (Normal Saline With 20 Meq Kcl) 1,000 mls @ 125 mls/hr IV ASDIRECTED [facility] Last Admin: 10/06/16 04:47 Dose: 125 mls/hr Azithromycin 500 mg/ Sodium (Chloride) 250 mls @ 250 mls/hr IV Q24H [facility] Magnesium Sulfate (Magnesium Sulfate 2 Gm In Water 50 Ml) 50 mls @ 50 mls/hr IV ONETIME ONE Stop: 10/05/16 22:29 Last Admin: 10/05/16 22:38 Dose: 50 mls/hr Magnesium Sulfate 2 gm/ Premix 50 mls @ 25 mls/hr IV ONETIME ONE Stop: 10/07/16 09:14 Last Admin: 10/07/16 08:28 Dose: 25 mls/hr Magnesium Sulfate 2 gm/ Premix 50 mls @ 25 mls/hr IV Q4H [facility] Stop: 10/08/16 13:44 Last Admin: 10/08/16 12:09 Dose: 25 mls/hr Iopamidol (Isovue-370 (76%)) 100 ml IVPUSH ONETIME ONE Stop: 10/05/16 18:45 Last Admin: 10/05/16 19:07 Dose: 70 ml Miscellaneous Information (Remove Patch) 1 ea TRDERM DAILY [facility] Nicotine (Habitrol) 21 mg TRDERM DAILY [facility] Pneumococcal Polyvalent Vaccine (Pneumovax 23) 0.5 ml SUBCUT .ONCE ONE Stop: 10/07/16 09:01 Potassium Chloride (Klor-Con M20) 20 meq PO Q3H [facility] Stop: 10/06/16 00:31 Last Admin: 10/06/16 00:54 Dose: 20 meq Sodium Chloride (Saline Flush) 10 ml FLUSH ONETIME PRN PRN Reason: IV FLUSH Last Admin: 10/05/16 19:07 Dose: 10 ml Temazepam (Restoril) 7.5 mg PO BEDTIME PRN PRN Reason: Sleep - Exam Quality Assessment: Denies: supplemental oxygen General: Reports: alert, oriented, cooperative, no acute distress HEENT: Reports: Pupils equal, Pupils reactive, EOMI, Mucous membr. moist/pink Neck: Reports: supple, trachea midline, no JVD, no thyromegaly Lungs: Reports: Normal respiratory effort, Wheezing (mild occasional) Cardiovascular: Reports: Regular Rate, Regular Rhythm Abdomen: Reports: bowel sounds present, soft, no tenderness, no distension (Female) Exam: Deferred Rectal (Female) Exam: Deferred Back Exam: Reports: Normal Inspection, Decreased Range of Motion Extremities: Reports: no edema, normal pulses, no tenderness/swelling, no clubbing, no cyanosis, no calf tenderness Skin: Reports: warm, dry, intact Neurological: Reports: no new focal deficit Psy/Mental Status: Reports: alert, normal affect, normal mood *Q Meaningful Use (DIS) - VTE *Q VTE Criteria *Q: - Stroke *Q Stroke Criteria *Q: - AMI *Q AMI Criteria *Q:
[2016-10-09 13:25] VITALS: BP 111/68
== END 2016-10-09 12:25 | disposition home or self-care (01) | DRG 195 ==
LOC: JD.ED 15:41 → JD.MS 20:08
PROVIDERS: ADMIT Internal Medicine; ATTEND Internal Medicine
PROC: 3E0234Z Introduction of Serum, Toxoid and Vaccine into Muscle, Percutaneous Approach (ICD-10-PCS; principal; 2016-10-09)
DX: J18.9 Pneumonia, unspecified organism (principal); R09.02 Hypoxemia; J84.10 Pulmonary fibrosis, unspecified; R79.1 Abnormal coagulation profile; E87.6 Hypokalemia; I95.9 Hypotension, unspecified; F17.210 Nicotine dependence, cigarettes, uncomplicated; E83.42 Hypomagnesemia; J44.9 Chronic obstructive pulmonary disease, unspecified; I73.9 Peripheral vascular disease, unspecified; Z79.899 Other long term (current) drug therapy; Z88.0 Allergy status to penicillin; Z23 Encounter for immunization; R06.2 Wheezing
CPT/HCPCS: 36415; 71010; 71275; 72100; 80053; 81001; 83605; 83735; 83880; 84484; 85025; 85379; 85652; 86140; 86738; 87040 ×2; 93005; 94664; 96365; 96366; 99285; J0696; J7030 ×2; J7042; J7050; Q9967; 71020; 71020-26; 80048; 86713; 87070; 87205; 87486; 87581; 87633; 87798; 87899; 90732; 94640; 94640-76; 94667; 94668; 94761; 94762; 97110-GO; 97110-GP; 97112-GP; 97116-GP; 97162-GP; 97166-GO; 97530-GO; 97535-GO; A9270-GY; G0009; J0456; J3475; J3480

== ENCOUNTER 2017-04-05 18:40 | Emergency (ER) | payer MEDICARE, SELFPAY ==
[2017-04-05 18:54] VITALS: BP 142/82
[2017-04-05] MEDS ORDERED: Sodium Chloride 0.9% 10 ML Syringe FLUSH PRN (19:28)
[2017-04-05] MEDS ORDERED: Sodium Chloride 0.9% 1,000 ML IV ONE ×2 (19:33→20:46)
[2017-04-05] MEDS ORDERED: Ondansetron 4 MG/2 ML SDV IVPUSH ONE (19:34)
[2017-04-05] MEDS ORDERED: Pantoprazole 40 MG Vial IVPUSH ONE (19:34)
--- NOTE | 2017-04-05 21:35 | EDM.PDOC ---
ED HPI GENERAL MEDICAL PROBLEM - General Chief Complaint: Gastrointestinal Problem Stated Complaint: VOMITING Time Seen by Provider: 04/05/17 19:11 Source of Information: Reports: Patient History Limitations: Reports: No Limitations - History of Present Illness INITIAL COMMENTS - FREE TEXT/NARRATIVE: The patient is a 76-year-old female who comes in with a chief complaint of vomiting and abdominal pain. She had a nuclear stress test performed this morning. She states that after the radio isotope was injected she started to feel queasy. On her way home she started to vomit. She's had about 6 episodes of vomiting. She states that it is yellow. She is concerned that is related to her testing this morning. She continues to be nauseated. She also has some upper abdominal pain. It waxes and wanes. No clear provoking or relieving factors. It is currently very mild. No diarrhea. She had a normal bowel movement this morning. No fever. No known exposure to contaminated food or water. No ill contacts. She has not been able to tolerate by mouth liquids or solids this afternoon. No urinary symptoms. Upper Abdomen Pain Score (Numeric/FACES): 2 - Related Data Allergies Allergy/AdvReac Type Severity Reaction Status Date / Time Penicillins Allergy Cannot Verified 04/05/17 18:53 Remember Home Meds: Home Meds Omeprazole 40 mg PO BID 01/05/15 [History] Ondansetron [Zofran ODT] 4 mg PO Q6H PRN #12 tab.dis 04/05/17 [Rx] Prednisone [IJD: Prednisone] 10 mg PO DAILY 04/05/17 [History] Past Medical History HEENT History: Reports: Cataract, Sinusitis Other Cardiovascular History: Rheumatic fever Hx / PVD with Aortic Bi-Fem per family Respiratory History: Reports: Bronchitis, Recurrent, COPD, Other (See Below) Other Respiratory History: pneumonia in September 2016 Gastrointestinal History: Reports: PUD Other Gastrointestinal History: STOMACH ULCERS Other OB/BYN History: HYSTERECTOMY Neurological History: Reports: None Other Neuro History: Bilateral leg "weakness" Rt. wworse than Lt. Endocrine/Metabolic History: Reports: Osteoporosis Dermatologic History: Reports: None Other Dermatologic History: OPEN SORE ON RIGHT ARM - Infectious Disease History Infectious Disease History: Reports: Chicken Pox, Measles, Mumps, Rheumatic Fever, Rubella - Past Surgical History HEENT Surgical History: Reports: Cataract Surgery Other Cardiovascular Surgeries/Procedures: FEMORAL POPLITEAL BYPASS Female Surgical History: Reports: Hysterectomy Social & Family History - Family History Family Medical History: Noncontributory - Tobacco Use Smoking Status *Q: Current Every Day Smoker Years of Tobacco use: 40 Packs/Tins Daily: 0.2 Used Tobacco, but Quit: Yes Month Tobacco Last Used: September Second Hand Smoke Exposure: Yes - Caffeine Use Caffeine Use: Reports: Coffee - Recreational Drug Use Recreational Drug Use: No - Living Situation & Occupation Living situation: Reports: Occupation: Retired ED ROS GENERAL - Review of Systems Review Of Systems: See Below Constitutional: Reports: Weakness, Fatigue. Denies: Fever HEENT: Reports: No Symptoms Respiratory: Denies: Shortness of Breath Cardiovascular: Denies: Chest Pain Endocrine: Reports: No Symptoms GI/Abdominal: Reports: Abdominal Pain, Nausea : Denies: Dysuria Musculoskeletal: Reports: No Symptoms ED EXAM, GI/ABD - Physical Exam Exam: See Below Exam Limited By: No Limitations General Appearance: Alert Eyes: Bilateral: Normal Appearance Ears: Normal External Exam Nose: Normal Inspection Throat/Mouth: Normal Oropharynx, Normal Voice, Other (Dry mucous membranes) Head: Atraumatic, Normocephalic Neck: Normal Inspection, Supple, Non-Tender, Full Range of Motion Respiratory/Chest: No Respiratory Distress, Lungs Clear, Normal Breath Sounds, Chest Non-Tender Cardiovascular: Normal Peripheral Pulses, Regular Rate, Rhythm, No Edema, No Murmur GI/Abdominal Exam: Soft, Other (Right upper quadrant, epigastric, left upper quadrant tenderness, no rebound or guarding) Back Exam: Normal Inspection. No: CVA Tenderness (L), CVA Tenderness (R) Extremities: Normal Inspection Neurological: Alert, Oriented, Normal Cognition, No Motor/Sensory Deficits Psychiatric: Normal Affect, Normal Mood Skin Exam: Warm, Dry, Intact, Normal Color, No Rash Course - Vital Signs Last Recorded V/S: Last Vital Signs Temp 36.5 C 04/05/17 18:49 Pulse 106 H 04/05/17 18:49 Resp 18 04/05/17 18:49 BP 142/82 H 04/05/17 18:49 Pulse Ox 98 04/05/17 18:49 - Orders/Labs/Meds Orders: Active Orders 24 hr Category Date Time Status EKG 12 Lead [EKG Documentation Completion] [RC] STAT Care 04/05/17 19:28 Active Peripheral IV Care [RC] . DIRECTED Care 04/05/17 19:30 Active Abdomen Comp [US] Stat Exams 04/05/17 19:35 Taken Abdomen Series w Chest 1V [CR] Stat Exams 04/05/17 19:30 Taken UA W/MICROSCOPIC [URIN] Stat Lab 04/05/17 20:59 Results Peripheral IV Insertion Adult [OM.PC] Routine Oth 04/05/17 19:29 Ordered Labs: Laboratory Tests 04/05/17 04/05/17 04/05/17 Range/Units 19:50 19:50 20:59 WBC 12.93 H (3.98-10.04) K/mm3 RBC 4.61 (3.98-5.22) M/mm3 Hgb 14.4 (11.2-15.7) gm/L Hct 43.4 (34.1-44.9) % MCV 94.1 (79.4-94.8) fl MCH 31.2 (25.6-32.2) pg MCHC 33.2 (32.2-35.5) g/dl RDW Std Deviation 46.0 (36.4-46.3) fL Plt Count 295 (182-369) K/mm3 MPV 9.7 (9.4-12.3) fl Neut % (Auto) 78.2 H (34.0-71.1) % Lymph % (Auto) 13.3 L (19.3-51.7) % [place] % (Auto) 7.3 (4.7-12.5) % Eos % (Auto) 0.5 L (0.7-5.8) Baso % (Auto) 0.2 (0.1-1.2) % Neut # (Auto) 10.13 H (1.56-6.13) K/mm3 Lymph # (Auto) 1.72 (1.18-3.74) K/mm3 [place] # (Auto) 0.94 H (0.24-0.36) K/mm3 Eos # (Auto) 0.06 (0.04-0.36) K/mm3 Baso # (Auto) 0.02 (0.01-0.08) K/mm3 Sodium 139 (136-145) mEq/L Potassium 3.8 (3.5-5.1) mEq/L Chloride 103 (98-107) mEq/L Carbon Dioxide 22 (21-32) mEq/L Anion Gap 17.8 H (5-15) BUN 28 H (7-18) mg/dL Creatinine 1.0 (0.55-1.02) mg/dL Est Cr Clr Drug Dosing 35.45 mL/min Estimated GFR (MDRD) 54 (>60) mL/min BUN/Creatinine Ratio 28.0 H (14-18) Glucose 112 (83-115) mg/dL Calcium 9.7 (8.5-10.1) mg/dL Total Bilirubin 0.5 (0.2-1.0) mg/dL AST 21 (15-37) U/L ALT 25 (14-59) U/L Alkaline Phosphatase 120 H (46-116) U/L Troponin I < 0.017 (0.00-0.056) ng/mL Total Protein 7.9 (6.4-8.2) g/dl Albumin 3.9 (3.4-5.0) g/dl Globulin 4.0 gm/dL Albumin/Globulin Ratio 1.0 (1-2) Lipase 203 (73-393) U/L Urine Color Yellow (Yellow) Urine Appearance Clear (Clear) Urine pH 6.0 (5.0-8.0) Ur Specific [place] 1.025 (1.005-1.030) Urine Protein Trace H (Negative) Urine Glucose (UA) Negative (Negative) Urine Ketones Trace H (Negative) Urine Occult Blood Trace-lysed H (Negative) Urine Nitrite Negative (Negative) Urine Bilirubin Negative (Negative) Urine Urobilinogen 0.2 (0.2-1.0) Ur Leukocyte Esterase Negative (Negative) Meds: Medications Discontinued Medications Generic Name Dose Route Start Last Admin Trade Name Freq PRN Reason Stop Dose Admin Sodium Chloride 1,000 mls @ 1,000 mls/hr 04/05/17 19:33 04/05/17 20:00 Normal Saline IV 04/05/17 20:32 1,000 mls/hr ONETIME ONE Administration Sodium Chloride 1,000 mls @ 1,000 mls/hr 04/05/17 20:46 04/05/17 21:01 Normal Saline IV 04/05/17 21:45 1,000 mls/hr ONETIME ONE Administration Ondansetron HCl 4 mg 04/05/17 19:34 04/05/17 20:00 Zofran IVPUSH 04/05/17 19:35 4 mg ONETIME ONE Administration Pantoprazole Sodium 80 mg 04/05/17 19:34 04/05/17 20:00 Protonix Iv IVPUSH 04/05/17 19:35 80 mg .BOLUS ONE Administration Sodium Chloride 10 ml 04/05/17 19:28 04/05/17 19:59 Saline Flush FLUSH 10 ml ASDIRECTED PRN Administration Keep Vein Open - Re-Assessments/Exams Free Text/Narrative Re-Assessment/Exam: 04/05/17 21:54 EKG shows normal sinus rhythm, no evidence of acute ischemia or arrhythmia. Troponin negative. Remaining labs also unremarkable. Three-way abdominal series shows normal chest x-ray, no free air. Abdominal x-ray showed normal bowel gas pattern, no acute abnormality. Ultrasound showed a contracted gallbladder, no stones or evidence of cholecystitis. Patient given fluids and Zofran. Upon reevaluation, she is feeling much better. She has not had any further vomiting in the emergency department. She has normal vital signs. Her abdominal pain is resolved. She would like to go home. Not clear whether her vomiting today was provoked by her testing this morning or if there was an alternate cause. Regardless, given her significant improvement we will discharge her. Discussed return precautions. She is to follow-up with her primary doctor next week as scheduled. Departure - Departure Time of Disposition: 21:33 Disposition: Home, Self-Care 01 Clinical Impression: Vomiting Qualifiers: Vomiting type: unspecified Vomiting Intractability: non-intractable Nausea presence: with nausea Qualified Code(s): R11.2 - Nausea with vomiting, unspecified Abdominal pain Qualifiers: Abdominal location: epigastric Qualified Code(s): R10.13 - Epigastric pain - Discharge Information Prescriptions: Ondansetron [Zofran ODT] 4 mg PO Q6H PRN #12 tab.dis PRN Reason: Nausea Instructions: Nausea and Vomiting, Adult Referrals: Shyla Gomes MD [Primary Care Provider] - Forms: ED Department Discharge Additional Instructions: 1. Drink plenty of fluids. OK to advance diet if you tolerate fluids ok. 2. Take ondansetron (zofran) if needed for nausea 3. Follow up with your primary doctor as planned 4. Return to the Emergency Department if you have worsening vomiting, abdominal pain, or any other concerning symptoms - My Orders Last 24 Hours: My Active Orders 04/05/17 19:28 EKG 12 Lead [EKG Documentation Completion] [RC] STAT 04/05/17 19:29 Peripheral IV Insertion Adult [OM.PC] Routine 04/05/17 19:30 Peripheral IV Care [RC] . DIRECTED Abdomen Series w Chest 1V [CR] Stat 04/05/17 19:35 Abdomen Comp [US] Stat 04/05/17 20:59 UA W/MICROSCOPIC [URIN] Stat - Assessment/Plan Last 24 Hours: My Active Orders 04/05/17 19:28 EKG 12 Lead [EKG Documentation Completion] [RC] STAT 04/05/17 19:29 Peripheral IV Insertion Adult [OM.PC] Routine 04/05/17 19:30 Peripheral IV Care [RC] . DIRECTED Abdomen Series w Chest 1V [CR] Stat 04/05/17 19:35 Abdomen Comp [US] Stat 04/05/17 20:59 UA W/MICROSCOPIC [URIN] Stat
--- NOTE | 2017-04-06 10:59 | US ---
Abdominal ultrasound: Multiple real-time images were obtained. Comparison: No prior abdominal ultrasound is available. Findings: Liver shows no focal parenchymal abnormality. Aorta shows mild atherosclerotic change without aneurysm. Gallbladder appears contracted. Patient gave history of being nonfasting. No definite gallstones are seen. No biliary duct dilatation is seen. Kidneys show no hydronephrosis or mass. Right kidney length is 9.5 cm and left kidney length is 8.7 cm. Spleen length is normal. Visualized portions of the pancreas are within normal limits. Inferior vena cava is patent. Portal vein shows normal hepatopedal flow. Impression: 1. Contracted gallbladder with a history of not fasting. 2. Other portions of the abdominal ultrasound appear within normal limits. Diagnostic code #2 I agree with preliminary report issued by [facility] ([facility] report finalized on 04/05/17, 10:20 PM Central Time)
--- NOTE | 2017-04-06 10:59 | CR ---
Abdominal series: Supine and upright views of the abdomen were obtained as well as frontal view of the chest. Comparison: Prior chest x-ray of 10/07/16. Heart size and mediastinum are within normal limits. Slight scarring noted within both lung bases. Lungs otherwise are clear. Plate and screws noted within the right humerus. Minimal scoliosis is noted within the spine. Atherosclerotic change seen within the aorta and iliac vessels. Surgical clips seen overlying both hips. Bowel gas pattern is normal. No free air is seen. Impression: 1. Incidental findings. Nothing acute is appreciated. Diagnostic code #2
== END 2017-04-05 21:38 | disposition home or self-care (01) ==
LOC: JD.ED 18:40
DX: R11.2 Nausea with vomiting, unspecified (principal); R10.13 Epigastric pain; R10.10 Upper abdominal pain, unspecified; F17.210 Nicotine dependence, cigarettes, uncomplicated; J44.9 Chronic obstructive pulmonary disease, unspecified; Z79.899 Other long term (current) drug therapy; Z88.0 Allergy status to penicillin; R07.89 Other chest pain
CPT/HCPCS: 36415; 74022; 76700; 78452; 80053; 81001; 83690; 84484; 85025; 93005; 93017; 96361; 96374; 96375; 99284; A9500; C9113; J2405; J2785; J7040; J7050; 93010

== ENCOUNTER 2018-01-09 20:00 | Emergency (ER) | payer MEDICARE ==
[2018-01-09 20:11] VITALS: BP 172/67
[2018-01-09] MEDS ORDERED: Sodium Chloride 0.9% 10 ML Syringe FLUSH PRN (21:05)
--- NOTE | 2018-01-09 21:45 | EDM.PDOC ---
ED HPI GENERAL MEDICAL PROBLEM - General Chief Complaint: Cardiovascular Problem Stated Complaint: HEAT BEAT FLUTTERING Time Seen by Provider: 01/09/18 20:45 Source of Information: Reports: Patient History Limitations: Reports: No Limitations - History of Present Illness INITIAL COMMENTS - FREE TEXT/NARRATIVE: 77-year-old female presents for evaluation and treatment of chest palpitations. Patient reports she took been extensively for about the last 3 days. She reports the last week she has not felt well. She states she feels more short of breath than normal. She is also complaining of fatigue. She reports she feels lightheaded when she experiences this fluttering in her chest. She states it is not painful. She has appreciated that the fluttering is present with movement. Currently does not have any symptoms; had some prior to arrival in the ED. She denies any nausea, vomiting or syncope. Primary care provider is Dr. Gomes. Patient reports a history of COPD. He does not have any cardiac history. She denies any known problems with her thyroid. Duration: Day(s): (3) - Related Data Allergies Allergy/AdvReac Type Severity Reaction Status Date / Time Penicillins Allergy Cannot Verified 01/09/18 20:08 Remember Home Meds: Home Meds Omeprazole 40 mg PO BID 01/05/15 [History] Ondansetron [Zofran ODT] 4 mg PO Q6H PRN #12 tab.dis 04/05/17 [Rx] Prednisone [IJD: Prednisone] 10 mg PO DAILY 04/05/17 [History] Albuterol [Ventolin HFA] 01/09/18 [History] Alendronate [Fosamax] 01/09/18 [History] Benzonatate 01/09/18 [History] Metoprolol. 01/09/18 [History] buPROPion [buPROPion XL] 01/09/18 [History] predniSONE [Prednisone] 01/09/18 [History] predniSONE [Prednisone] 01/09/18 [History] Past Medical History HEENT History: Reports: Cataract, Sinusitis Cardiovascular History: Reports: Hypertension Other Cardiovascular History: Rheumatic fever Hx / PVD with Aortic Bi-Fem per family Respiratory History: Reports: Bronchitis, Recurrent, COPD, Other (See Below) Other Respiratory History: pneumonia in September 2016 Gastrointestinal History: Reports: PUD Other Gastrointestinal History: STOMACH ULCERS Other LIBERAL ARTS TEACHER History: HYSTERECTOMY Neurological History: Reports: None Other Neuro History: Bilateral leg "weakness" Rt. wworse than Lt. Endocrine/Metabolic History: Reports: Osteoporosis Dermatologic History: Reports: None Other Dermatologic History: OPEN SORE ON RIGHT ARM - Infectious Disease History Infectious Disease History: Reports: Chicken Pox, Measles, Mumps, Rheumatic Fever, Rubella - Past Surgical History HEENT Surgical History: Reports: Cataract Surgery Other Cardiovascular Surgeries/Procedures: FEMORAL POPLITEAL BYPASS Female Surgical History: Reports: Hysterectomy Social & Family History - Family History Family Medical History: Noncontributory - Tobacco Use Smoking Status *Q: Current Every Day Smoker Years of Tobacco use: 60 Packs/Tins Daily: 0.3 - Caffeine Use Caffeine Use: Reports: Coffee - Living Situation & Occupation Living situation: Reports: Occupation: Retired ED ROS GENERAL - Review of Systems Review Of Systems: See Below Constitutional: Reports: Fatigue, Weight Gain Respiratory: Reports: Shortness of Breath Cardiovascular: Reports: Lightheadedness (with palpitations), Palpitations. Denies: Chest Pain GI/Abdominal: Denies: Abdominal Pain, Nausea, Vomiting Neurological: Denies: Syncope ED EXAM, GENERAL - Physical Exam Exam: See Below Exam Limited By: No Limitations General Appearance: Alert, WD/WN, No Apparent Distress Eye Exam: Bilateral Eye: Normal Inspection Ears: Normal External Exam Nose: Normal Inspection Throat/Mouth: Normal Inspection, Normal Lips, Normal Voice, No Airway Compromise Respiratory/Chest: No Respiratory Distress, Lungs Clear, Normal Breath Sounds Cardiovascular: Normal Peripheral Pulses, Regular Rate, Rhythm, No Murmur Neurological: Alert, Oriented, Normal Cognition Psychiatric: Normal Affect, Normal Mood Skin Exam: Warm, Dry, Normal Color EKG INTERPRETATION EKG Date: 01/09/18 Time: 20:20 Rhythm: NSR Rate (Beats/Min): 66 [place]: Normal P-Wave: Present QRS: Normal ST-T: Normal QT: Normal EKG Interpretation Comments: NSR at 66 bpm. No significant change from previous EKG on 04-05-17. Reviewed by myself and Dr. Rahman. Course - Vital Signs Last Recorded V/S: Last Vital Signs Temp 96.8 F 01/09/18 20:08 Pulse 71 01/09/18 20:08 Resp 18 01/09/18 20:08 BP 172/67 H 01/09/18 20:08 Pulse Ox 97 08/26/18 20:08 - Orders/Labs/Meds Orders: Active Orders 24 hr Category Date Time Status Cardiac Monitoring [RC] . DIRECTED Care 01/09/18 20:57 Active EKG Documentation Completion [RC] ASDIRECTED Care 01/09/18 20:39 Active Holter Monitor 48 Hours [RC] .PRN Care 01/09/18 23:14 Ordered Peripheral IV Care [RC] . DIRECTED Care 01/09/18 21:05 Active Chest 1V Frontal [CR] Stat Exams 01/09/18 20:59 Taken Chest PE [Ang Chest] [CT] Stat Exams 01/09/18 22:11 Taken Sodium Chloride 0.9% [Saline Flush] Med 01/09/18 21:05 Active 10 ml FLUSH ASDIRECTED PRN Peripheral IV Insertion Adult [OM.PC] Routine Oth 01/09/18 21:05 Ordered EKG 12 Lead [EK] Stat Ther 01/09/18 20:39 Ordered Medication Orders Sodium Chloride (Saline Flush) 10 ml FLUSH ASDIRECTED PRN PRN Reason: Keep Vein Open Last Admin: 01/09/18 21:22 Dose: 10 ml Labs: Laboratory Tests 01/09/18 01/09/18 01/09/18 Range/Units 20:45 20:45 20:45 WBC 15.92 H (3.98-10.04) K/mm3 RBC 4.27 (3.98-5.22) M/mm3 Hgb 13.4 (11.2-15.7) gm/L Hct 41.2 (34.1-44.9) % MCV 96.5 H (79.4-94.8) fl MCH 31.4 (25.6-32.2) pg MCHC 32.5 (32.2-35.5) g/dl RDW Std Deviation 49.3 H (36.4-46.3) fL Plt Count 248 (182-369) K/mm3 MPV 10.1 (9.4-12.3) fl Neutrophils % (Manual) 86 H (40-60) % Band Neutrophils % 0 (0-10) % Lymphocytes % (Manual) 8 L (20-40) % Atypical Lymphs % 0 % Monocytes % (Manual) 6 (2-10) % Eosinophils % (Manual) 0 L (0.7-5.8) % Basophils % (Manual) 0 L (0.1-1.2) Platelet Estimate Adequate Plt Morphology Comment Normal Anisocytosis 1+ slight RBC Morph Comment Not Reportable D-Dimer, Quantitative 1.90 H (0.19-0.50) mg/L Sodium 137 (136-145) mEq/L Potassium 4.5 (3.5-5.1) mEq/L Chloride 104 (98-107) mEq/L Carbon Dioxide 24 (21-32) mEq/L Anion Gap 13.5 (5-15) BUN 30 H (7-18) mg/dL Creatinine 1.2 H (0.55-1.02) mg/dL Est Cr Clr Drug Dosing 29.10 mL/min Estimated GFR (MDRD) 44 (>60) mL/min BUN/Creatinine Ratio 25.0 H (14-18) Glucose 105 (83-115) mg/dL Calcium 8.8 (8.5-10.1) mg/dL Magnesium 1.8 (1.8-2.4) mg/dl Total Bilirubin 0.3 (0.2-1.0) mg/dL AST 19 (15-37) U/L ALT 28 (14-59) U/L Alkaline Phosphatase 96 (46-116) U/L Troponin I < 0.017 (0.00-0.056) ng/mL Total Protein 6.6 (6.4-8.2) g/dl Albumin 3.1 L (3.4-5.0) g/dl Globulin 3.5 gm/dL Albumin/Globulin Ratio 0.9 L (1-2) Free T4 0.93 (0.76-1.46) ng/dL TSH 3rd Generation 2.159 (0.358-3.74) uIU/mL Meds: Medications Generic Name Dose Route Start Last Admin Trade Name Freq PRN Reason Stop Dose Admin Sodium Chloride 10 ml 01/09/18 21:05 01/09/18 21:22 Saline Flush FLUSH 10 ml ASDIRECTED PRN Administration Keep Vein Open Discontinued Medications Generic Name Dose Route Start Last Admin Trade Name Freq PRN Reason Stop Dose Admin Sodium Chloride 500 mls @ 999 mls/hr 01/09/18 22:11 01/09/18 23:02 Normal Saline IV 01/09/18 22:41 999 mls/hr ONETIME ONE Administration Sodium Chloride 100 mls @ 4 mls/sec 01/09/18 22:30 01/09/18 22:50 Normal Saline IV 01/09/18 22:31 4 mls/sec ONETIME ONE Administration Iopamidol 100 ml 01/09/18 22:17 01/09/18 22:49 Isovue-370 (76%) IVPUSH 01/09/18 22:18 100 ml ONETIME ONE Administration Iopamidol 25 ml 01/09/18 22:17 01/09/18 22:49 Isovue-370 (76%) IVPUSH 01/09/18 22:18 25 ml ONETIME ONE Administration - Radiology Interpretation Free Text/Narrative:: chest 1 view shows no acute intrathoracic process. CT of the chest PE study impression per [facility]: No acute findings. No PE. - Re-Assessments/Exams Free Text/Narrative Re-Assessment/Exam: 01/09/18 23:13 I reviewed the labs, EKG and imaging with the patient. She has not had any of the fluttering sensations since she arrived at the ED. Has been on the entry level sales representative, heart rate has been 60-70s and regular. Plan will be to place on a 48-hour Holter monitor and I will have her follow up with her primary care provider in the clinic this week. She is instructed to return the ER for symptoms change or worsen. Discharge instructions as documented. Departure - Departure Time of Disposition: 23:19 Disposition: Home, Self-Care 01 Condition: Fair Clinical Impression: Heart palpitations Instructions: Palpitations, [id number] Referrals: Shyla Gomes MD [Primary Care Provider] - Forms: ED Department Discharge Additional Instructions: Wear the Holter monitor as directed by RT. Results will be sent to Dr. Gomes. Follow-up with Dr. Gomes within the next few days for recheck of your symptoms. Rest. Make sure drinking plenty of fluids. If your symptoms change or worsen, please return to the ER. - My Orders Last 24 Hours: My Active Orders 01/09/18 20:39 EKG Documentation Completion [RC] ASDIRECTED EKG 12 Lead [EK] Stat 01/09/18 20:57 Cardiac Monitoring [RC] . DIRECTED 01/09/18 20:59 Chest 1V Frontal [CR] Stat 01/09/18 21:05 Peripheral IV Care [RC] . DIRECTED Sodium Chloride 0.9% [Saline Flush] 10 ml FLUSH ASDIRECTED PRN Peripheral IV Insertion Adult [OM.PC] Routine 01/09/18 22:11 Chest PE [Ang Chest] [CT] Stat 01/09/18 23:14 Holter Monitor 48 Hours [RC] .PRN - Assessment/Plan Last 24 Hours: My Active Orders 01/09/18 20:39 EKG Documentation Completion [RC] ASDIRECTED EKG 12 Lead [EK] Stat 01/09/18 20:57 Cardiac Monitoring [RC] . DIRECTED 01/09/18 20:59 Chest 1V Frontal [CR] Stat 01/09/18 21:05 Peripheral IV Care [RC] . DIRECTED Sodium Chloride 0.9% [Saline Flush] 10 ml FLUSH ASDIRECTED PRN Peripheral IV Insertion Adult [OM.PC] Routine 01/09/18 22:11 Chest PE [Ang Chest] [CT] Stat 01/09/18 23:14 Holter Monitor 48 Hours [RC] .PRN
[2018-01-09] MEDS ORDERED: Sodium Chloride 0.9% 500 ML IV ONE (22:11)
[2018-01-09] MEDS ORDERED: Iopamidol 755 Mg/ML 100 ML Bottle IVPUSH ONE (22:17)
[2018-01-09] MEDS ORDERED: Iopamidol 755 MG/ML 50 ML Bottle IVPUSH ONE (22:17)
[2018-01-09] MEDS ORDERED: Sodium Chloride 0.9% 100 ML IV ONE (22:30)
--- NOTE | 2018-01-10 07:29 | CT ---
CT chest Technique: Multiple axial sections through the chest were obtained. Intravenous contrast was utilized. Study was performed as a pulmonary angiogram protocol. Comparison: Prior chest CT of 10/05/16 and chest x-ray of 11/30/13. Findings: Pulmonary arteries are well-opacified. No filling defects are seen to indicate pulmonary embolism. Coronary artery calcification is seen. Scattered lymph nodes are seen which are less prominent than on prior exam without findings of mediastinal or hilar adenopathy. Atherosclerotic calcification noted within the thoracic aorta without aneurysm. No axillary adenopathy is seen. No pericardial thickening is seen. Linear filling defect noted within the left atrium suspicious for left atrial band. Small portion of the visualized upper abdominal structures appear within normal limits. Lungs are clear. No pleural effusions are seen. Minimal scarring is noted within both lung bases. Small subpleural nodule is noted within the left lung base measuring about 5.8 mm. This is a stable finding from previous exams and therefore felt to be incidental. Bone window settings were reviewed which show scattered degenerative change throughout the spine. Impression: 1. No findings of pulmonary embolism. 2. 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 3. Other incidental findings as noted above. Nothing acute is seen. Diagnostic code #2 I agree with preliminary report from [facility], finalized at 01/10/18, 12:06 AM Central Time
--- NOTE | 2018-01-10 08:35 | CR ---
Chest: Frontal view of the chest is obtained utilizing portable technique. Comparison: Prior chest x-ray of 10/07/16. Heart size is normal. Mild tortuosity of the thoracic aorta is seen. Lungs are clear without acute parenchymal change. Orthopedic hardware noted within the right humerus. Impression: 1. Nothing acute is seen on portable chest x-ray. Diagnostic code #2
== END 2018-01-09 23:43 | disposition home or self-care (01) ==
LOC: JD.ED 20:00
DX: R00.2 Palpitations (principal); F17.210 Nicotine dependence, cigarettes, uncomplicated; I10 Essential (primary) hypertension; Z88.0 Allergy status to penicillin
CPT/HCPCS: 36415; 71045; 71275; 80053; 83735; 84439; 84443; 84484; 85007; 85027; 85379; 93005; 93225; 93226; 96360; 99285; J7030; J7040; J7050; Q9967

== ENCOUNTER 2018-07-20 16:35 | Observation (INO) | payer MEDICARE ==
--- NOTE | 2018-07-20 18:59 | EDM.PDOC ---
ED HPI GENERAL MEDICAL PROBLEM - General Chief Complaint: Respiratory Problem Stated Complaint: SOB - COPD Time Seen by Provider: 07/20/18 18:57 Source of Information: Reports: Patient, Family History Limitations: Reports: No Limitations - History of Present Illness INITIAL COMMENTS - FREE TEXT/NARRATIVE: The patient presents with shortness of breath cough and pain to her back. This all started over a week ago. She went to the clinic and was given a Z-jimenez and prednisone 40mg daily for 10 days. She finished the Z-jimenez on Wednesday. She has pain all over but more pain to her back between her shoulder blades. She denies any injury. She has no fever or chills now. She has no chest pain. She has a history of COPD and uses oxygen at home and she was 91% when she arrived here. She has no swelling or pain in her legs. Onset: Gradual Duration: Week(s): Location: Reports: Back Quality: Reports: Sharp Severity: Moderate Improves with: Reports: Immobilization Worsens with: Reports: Movement Associated Symptoms: Reports: Cough, Shortness of Breath. Denies: Chest Pain, Fever/Chills, Headaches, Nausea/Vomiting Upper Posterior Back Pain Score (Numeric/FACES): 4 - Related Data Allergies Allergy/AdvReac Type Severity Reaction Status Date / Time Penicillins Allergy Cannot Verified 01/09/18 20:08 Remember Home Meds: Home Meds Omeprazole 20 mg PO BID 01/05/15 [History] predniSONE [Prednisone] 40 mg PO DAILY 01/09/18 [History] Acetaminophen [Tylenol Arthritis] 650 mg PO Q8H PRN 07/20/18 [History] Albuterol Sulfate [Proventil Hfa] 2 puff INH Q4H PRN 07/20/18 [History] Albuterol Sulfate [Proventil Hfa] 2 puff INH TID 07/20/18 [History] Albuterol/Ipratropium [DuoNeb 3.0-0.5 MG/3 ML] 1 applic INH QID PRN 07/20/18 [ History] Ibuhh-C-Ikxcdrxwixvqh [Beano] 1 tab PO ASDIRECTED 07/20/18 [History] Calcium Lactate 1,500 mg PO DAILY 07/20/18 [History] Cholecalciferol (Vitamin D3) [Vitamin D3] 1,000 mg PO DAILY 07/20/18 [History] Cyclobenzaprine [Flexeril] 10 mg PO Q8H PRN 07/20/18 [History] Dextromethorphan/guaiFENesin [Mucinex DM ER 600-30 MG] 1 tab PO DAILY 07/20/18 [ History] Fluticasone/Salmeterol [Advair 100-50] 1 puff INH BID 07/20/18 [History] Furosemide [Lasix] 20 mg PO DAILY 07/20/18 [History] Ibuprofen [Motrin] 200 mg PO ASDIRECTED 07/20/18 [History] Metoprolol Succinate 25 mg PO DAILY 07/20/18 [History] Sennosides [Senna] 8.6 mg PO BEDTIME PRN 07/20/18 [History] Past Medical History HEENT History: Reports: Cataract, Sinusitis Cardiovascular History: Reports: Hypertension Other Cardiovascular History: Rheumatic fever Hx / PVD with Aortic Bi-Fem per family Respiratory History: Reports: Bronchitis, Recurrent, COPD, Other (See Below) Other Respiratory History: pneumonia in September 2016 Gastrointestinal History: Reports: PUD Other Gastrointestinal History: STOMACH [employer]ERS Other [employer]MENT[employer]CHO[employer] History: HYSTERECTOMY Neurological History: Reports: None Other Neuro History: Bilateral leg "weakness" Rt. wworse than Lt. Endocrine/Metabolic History: Reports: Osteoporosis Dermatologic History: Reports: None Other Dermatologic History: OPEN SORE ON RIGHT ARM - Infectious Disease History Infectious Disease History: Reports: Chicken Pox, Measles, Mumps, Rheumatic Fever, Rubella - Past Surgical History HEENT Surgical History: Reports: Cataract Surgery Other Cardiovascular Surgeries/Procedures: FEMORAL POPLITEAL BYPASS Female Surgical History: Reports: Hysterectomy Social & Family History - Family History Family Medical History: Noncontributory - Tobacco Use Smoking Status *Q: Current Every Day Smoker Years of Tobacco use: 55 Packs/Tins Daily: 0.1 - Caffeine Use Caffeine Use: Reports: Coffee, Soda - Recreational Drug Use Recreational Drug Use: No - Living Situation & Occupation Living situation: Reports: Occupation: Retired ED ROS GENERAL - Review of Systems Review Of Systems: See Below Constitutional: Reports: No Symptoms HEENT: Reports: No Symptoms Respiratory: Reports: Shortness of Breath, Cough Cardiovascular: Reports: No Symptoms Endocrine: Reports: No Symptoms GI/Abdominal: Reports: No Symptoms : Reports: No Symptoms Musculoskeletal: Reports: Back Pain Skin: Reports: No Symptoms Neurological: Reports: No Symptoms ED EXAM, GENERAL - Physical Exam Exam: See Below Exam Limited By: No Limitations General Appearance: Alert, No Apparent Distress Ears: Normal External Exam Nose: Normal Inspection Head: Atraumatic, Normocephalic Neck: Normal Inspection Respiratory/Chest: No Respiratory Distress, Wheezing (Moderate) Cardiovascular: Regular Rate, Rhythm, No Edema, No Murmur GI/Abdominal: Soft, Non-Tender, No Organomegaly, No Mass Back Exam: Normal Inspection Extremities: Normal Inspection Neurological: Alert, Oriented, No Motor/Sensory Deficits EKG INTERPRETATION EKG Date: 07/20/18 Time: 19:20 Rhythm: NSR Rate (Beats/Min): 96 Blain: Normal P-Wave: Present QRS: Normal ST-T: Normal QT: Normal Course - Vital Signs Last Recorded V/S: Last Vital Signs Temp 97.4 F 07/20/18 16:51 Pulse 98 07/20/18 16:51 Resp 16 07/20/18 16:51 BP 128/111 H 07/20/18 16:51 Pulse Ox 98 07/20/18 16:51 - Orders/Labs/Meds Orders: Active Orders 24 hr Category Date Time Status Cardiac Monitoring [RC] . DIRECTED Care 07/20/18 19:08 Active EKG Documentation Completion [RC] STAT Care 07/20/18 19:09 Active Oxygen Therapy [RC] PRN Care 07/20/18 19:08 Active Peripheral IV Care [RC] . DIRECTED Care 07/20/18 19:09 Active RT Aerosol Therapy [RC] ASDIRECTED Care 07/20/18 19:10 Active RT Aerosol Therapy [RC] ASDIRECTED Care 07/20/18 20:25 Active Chest 1V Frontal [CR] Stat Exams 07/20/18 19:09 Taken Sodium Chloride 0.9% [Saline Flush] Med 07/20/18 19:08 Active 10 ml FLUSH ASDIRECTED PRN Peripheral IV Insertion Adult [OM.PC] Stat Oth 07/20/18 19:08 Ordered Medication Orders Sodium Chloride (Saline Flush) 10 ml FLUSH ASDIRECTED PRN PRN Reason: Keep Vein Open Last Admin: 07/20/18 19:36 Dose: 10 ml Labs: Laboratory Tests 07/20/18 07/20/18 07/20/18 Range/Units 17:05 17:05 19:59 WBC 10.21 H 12.88 H (3.98-10.04) K/mm3 RBC 4.24 4.34 (3.98-5.22) M/mm3 Hgb 13.5 13.9 (11.2-15.7) gm/L Hct 42.0 43.2 (34.1-44.9) % MCV 99.1 H 99.5 H (79.4-94.8) fl MCH 31.8 32.0 (25.6-32.2) pg MCHC 32.1 L 32.2 (32.2-35.5) g/dl RDW Std Deviation 53.7 H 54.5 H (36.4-46.3) fL Plt Count 246 233 (182-369) K/mm3 MPV 9.9 9.8 (9.4-12.3) fl Neut % (Auto) 68.9 (34.0-71.1) % Lymph % (Auto) 15.6 L (19.3-51.7) % [place] % (Auto) 8.9 (4.7-12.5) % Eos % (Auto) 2.1 (0.7-5.8) Baso % (Auto) 0.5 (0.1-1.2) % Neut # (Auto) 8.88 H (1.56-6.13) K/mm3 Lymph # (Auto) 2.01 (1.18-3.74) K/mm3 [place] # (Auto) 1.14 H (0.24-0.36) K/mm3 Eos # (Auto) 0.27 (0.04-0.36) K/mm3 Baso # (Auto) 0.06 (0.01-0.08) K/mm3 Neutrophils % (Manual) 82 H (40-60) % Band Neutrophils % 1 (0-10) % Lymphocytes % (Manual) 11 L (20-40) % Atypical Lymphs % 0 % Monocytes % (Manual) 4 (2-10) % Eosinophils % (Manual) 1 (0.7-5.8) % Basophils % (Manual) 1 (0.1-1.2) Manual Slide Review Normal smear Platelet Estimate Adequate RBC Morph Comment Normal Sodium 135 L (136-145) mEq/L Potassium 3.7 (3.5-5.1) mEq/L Chloride 99 (98-107) mEq/L Carbon Dioxide 27 (21-32) mEq/L Anion Gap 12.7 (5-15) BUN 24 H (7-18) mg/dL Creatinine 1.6 H (0.55-1.02) mg/dL Est Cr Clr Drug Dosing 21.82 mL/min Estimated GFR (MDRD) 31 (>60) mL/min BUN/Creatinine Ratio 15.0 (14-18) Glucose 109 (83-115) mg/dL Calcium 9.1 (8.5-10.1) mg/dL Total Bilirubin 0.3 (0.2-1.0) mg/dL AST 22 (15-37) U/L ALT 32 (14-59) U/L Alkaline Phosphatase 95 (46-116) U/L Troponin I (0.00-0.056) ng/mL Total Protein 6.9 (6.4-8.2) g/dl Albumin 3.3 L (3.4-5.0) g/dl Globulin 3.6 gm/dL Albumin/Globulin Ratio 0.9 L (1-2) 07/20/18 Range/Units 20:00 WBC (3.98-10.04) K/mm3 RBC (3.98-5.22) M/mm3 Hgb (11.2-15.7) gm/L Hct (34.1-44.9) % MCV (79.4-94.8) fl MCH (25.6-32.2) pg MCHC (32.2-35.5) g/dl RDW Std Deviation (36.4-46.3) fL Plt Count (182-369) K/mm3 MPV (9.4-12.3) fl Neut % (Auto) (34.0-71.1) % Lymph % (Auto) (19.3-51.7) % [place] % (Auto) (4.7-12.5) % Eos % (Auto) (0.7-5.8) Baso % (Auto) (0.1-1.2) % Neut # (Auto) (1.56-6.13) K/mm3 Lymph # (Auto) (1.18-3.74) K/mm3 [place] # (Auto) (0.24-0.36) K/mm3 Eos # (Auto) (0.04-0.36) K/mm3 Baso # (Auto) (0.01-0.08) K/mm3 Neutrophils % (Manual) (40-60) % Band Neutrophils % (0-10) % Lymphocytes % (Manual) (20-40) % Atypical Lymphs % % Monocytes % (Manual) (2-10) % Eosinophils % (Manual) (0.7-5.8) % Basophils % (Manual) (0.1-1.2) Manual Slide Review Platelet Estimate RBC Morph Comment Sodium 137 (136-145) mEq/L Potassium 3.7 (3.5-5.1) mEq/L Chloride 98 (98-107) mEq/L Carbon Dioxide 28 (21-32) mEq/L Anion Gap 14.7 (5-15) BUN 24 H (7-18) mg/dL Creatinine 1.5 H (0.55-1.02) mg/dL Est Cr Clr Drug Dosing 23.28 mL/min Estimated GFR (MDRD) 34 (>60) mL/min BUN/Creatinine Ratio 16.0 (14-18) Glucose 93 (83-115) mg/dL Calcium 9.4 (8.5-10.1) mg/dL Total Bilirubin 0.4 (0.2-1.0) mg/dL AST 26 (15-37) U/L ALT 32 (14-59) U/L Alkaline Phosphatase 100 (46-116) U/L Troponin I 0.019 (0.00-0.056) ng/mL Total Protein 7.1 (6.4-8.2) g/dl Albumin 3.5 (3.4-5.0) g/dl Globulin 3.6 gm/dL Albumin/Globulin Ratio 1.0 (1-2) Meds: Medications Generic Name Dose Route Start Last Admin Trade Name Freq PRN Reason Stop Dose Admin Sodium Chloride 10 ml 07/20/18 19:08 07/20/18 19:36 Saline Flush FLUSH 10 ml ASDIRECTED PRN Administration Keep Vein Open Discontinued Medications Generic Name Dose Route Start Last Admin Trade Name Freq PRN Reason Stop Dose Admin Albuterol/Ipratropium 3 ml 07/20/18 19:09 07/20/18 19:25 Duoneb 3.0-0.5 Mg/3 Ml NEB 07/20/18 19:10 3 ml ONETIME ONE Administration Albuterol/Ipratropium 3 ml 07/20/18 20:25 07/20/18 20:35 Duoneb 3.0-0.5 Mg/3 Ml NEB 07/20/18 20:26 3 ml ONETIME ONE Administration Hydromorphone HCl 0.5 mg 07/20/18 19:42 07/20/18 19:52 Dilaudid IVPUSH 07/20/18 19:43 0.5 mg ONETIME ONE Administration Methylprednisolone Sodium Succinate 125 mg 07/20/18 19:09 07/20/18 19:36 Solu-Medrol IVPUSH 07/20/18 19:10 125 mg ONETIME ONE Administration - Re-Assessments/Exams Free Text/Narrative Re-Assessment/Exam: 07/20/18 19:48 I ordered an IV saline lock, EKG, CXR, labs, solu-medrol 125mg IV and a duoneb. Her EKG shows a NSR with no acute changes. 07/20/18 20:34 Her CXR shows no infiltrate. Her WBC was elevated at 12.88. She has been on steroids. Her creatinine was 1.5. Her troponin is negative. Her EKG shows a NSR with no acute changes. Her lungs sound better but she is still wheezing good. I have ordered another duoneb. I feel she needs to be admitted. I called Dr Lee and she agreed to the admission. Departure - Departure Time of Disposition: 20:40 Disposition: Admitted As Inpatient 68 Condition: Poor Clinical Impression: COPD exacerbation - Discharge Information Referrals: Charles Martinez MD [Primary Care Provider] - Forms: ED Department Discharge - My Orders Last 24 Hours: My Active Orders 07/20/18 19:08 Cardiac Monitoring [RC] . DIRECTED Oxygen Therapy [RC] PRN Sodium Chloride 0.9% [Saline Flush] 10 ml FLUSH ASDIRECTED PRN Peripheral IV Insertion Adult [OM.PC] Stat 07/20/18 19:09 EKG Documentation Completion [RC] STAT Peripheral IV Care [RC] . DIRECTED Chest 1V Frontal [CR] Stat 07/20/18 19:10 RT Aerosol Therapy [RC] ASDIRECTED 07/20/18 20:25 RT Aerosol Therapy [RC] ASDIRECTED - Assessment/Plan Last 24 Hours: My Active Orders 07/20/18 19:08 Cardiac Monitoring [RC] . DIRECTED Oxygen Therapy [RC] PRN Sodium Chloride 0.9% [Saline Flush] 10 ml FLUSH ASDIRECTED PRN Peripheral IV Insertion Adult [OM.PC] Stat 07/20/18 19:09 EKG Documentation Completion [RC] STAT Peripheral IV Care [RC] . DIRECTED Chest 1V Frontal [CR] Stat 07/20/18 19:10 RT Aerosol Therapy [RC] ASDIRECTED 07/20/18 20:25 RT Aerosol Therapy [RC] ASDIRECTED
[2018-07-20] MEDS ORDERED: Sodium Chloride 0.9% 10 ML Syringe FLUSH PRN (19:08)
[2018-07-20] MEDS ORDERED: methylPREDNISolone Sodium Succinate 125 MG/2 ML SDV IVPUSH ONE (19:09)
[2018-07-20] MEDS ORDERED: Albuterol/Ipratropium 3.0-0.5 MG/3 ML Neb Soln NEB ONE ×2 (19:09→20:25)
[2018-07-20] MEDS ORDERED: HYDROmorphone 1 MG/ML Syringe IVPUSH ONE (19:42)
[2018-07-20] MEDS ORDERED: Albuterol 0.083% 2.5 MG/3 ML Neb Soln NEB PRN (21:18)
[2018-07-21] MEDS ORDERED: methylPREDNISolone Sodium Succinate 125 MG/2 ML SDV IVPUSH ONE (02:30)
[2018-07-21] MEDS: Albuterol/Ipratropium 3.0-0.5 MG/3 ML Neb Soln NEB SCH ×4 (05:38→21:26)
--- NOTE | 2018-07-21 07:14 | CR ---
Chest: Portable view of the chest was obtained. Comparison: Prior chest x-ray of 01/09/18. Heart size is normal. Tortuous thoracic aorta is seen. Plate and screws are noted within the right humerus. Lungs are clear with no acute parenchymal change. Impression: 1. Incidental findings. Nothing acute is seen. Diagnostic code #2
[2018-07-21] MEDS ORDERED: Metoprolol Succinate 25 MG Tab.ER PO SCH (09:00)
[2018-07-21] MEDS ORDERED: Acetaminophen 325 MG Tab PO PRN (09:03)
[2018-07-21] MEDS ORDERED: Azithromycin 500 MG in Sodium Chloride 0.9% 250 ML IV SCH (10:00)
[2018-07-21] MEDS: cefTRIAXone 1 GM in Sodium Chloride 0.9% 100 ML IV SCH (10:01)
[2018-07-21] MEDS: methylPREDNISolone Sodium Succinate 40 MG/1 ML SDV IVPUSH SCH ×3 (10:01→21:56)
--- NOTE | 2018-07-21 10:14 | CR ---
Chest: Two views of the chest were obtained. Comparison: Prior chest x-ray of 07/20/18. Heart size is normal. Mild tortuosity of the thoracic aorta is again noted. Mild atelectasis is seen within the left base. Central lung markings are mildly increased which are felt to be technique related. No acute parenchymal change is suspected. Plate and screws are again seen within the humerus. Slight degenerative change is scattered within the spine. Impression: 1. Mild left basilar atelectasis. Nothing acute is otherwise seen. Diagnostic code #2
[2018-07-21 10:20] LABS: HEMOGLOBIN A1C 6.2 % (4.50-6.20)
--- NOTE | 2018-07-21 10:46 | PCM.HP ---
H&P History of Present Illness - General Date of Service: 07/21/18 Admit Problem/Dx: Admission Diagnosis/Problem Admission Diagnosis/Problem Chronic obstructive pulmonary disease - History of Present Illness Initial Comments - Free Text/Narative: 77-year-old female smoker with a history of COPD, CHF, peripheral artery disease , and hypertension comes in via the emergency room secondary to worsening shortness of breath and upper back pain. Patient states that a cough and shortness of breath started approximately 2 weeks ago. She was seen by her primary care provider, Dr. Martinez, a little over 1 week ago and started on prednisone and Zithromax. Patient took her last dose of prednisone on Wednesday, 4 days ago. She states that by Wednesday she was already getting worse. Last night she became more short of breath and felt like she was developing pneumonia, which is what initiated her presentation to the emergency room. She felt feverish a couple of days ago but not recently. She refuses the flu shot because of side effects. She has a 95-[id number]-mcga history. Patient also states that she has significant shortness of breath with ambulation. She can only walk a short distance before getting short of breath. She denies any shortness of breath at rest. She was started on Lasix last March after returning from vacation with significant lower extremity swelling. She was seen by cardiology approximately one year ago and had a Lexiscan and echocardiogram done. Cardiology did place her on metoprolol. Patient does state that she has had some increased swelling in her lower extremities recently. Upper Posterior Back Pain Score (Numeric/FACES): 4 - Related Data Allergies/Adverse Reactions: Allergies Allergy/AdvReac Type Severity Reaction Status Date / Time Penicillins Allergy Cannot Verified 07/20/18 23:01 Remember Home Medications: Home Meds Omeprazole 20 mg PO BID 01/05/15 [History] predniSONE [Prednisone] 20 mg PO DAILY 01/09/18 [History] Acetaminophen [Tylenol Arthritis] 650 mg PO Q8H PRN 07/20/18 [History] Albuterol Sulfate [Proventil Hfa] 2 puff INH Q4H PRN 07/20/18 [History] Albuterol Sulfate [Proventil Hfa] 2 puff INH TID 07/20/18 [History] Albuterol/Ipratropium [DuoNeb 3.0-0.5 MG/3 ML] 1 applic INH QID PRN 07/20/18 [ History] Clysg-A-Gzoosvgxxseci [Beano] 1 tab PO ASDIRECTED PRN 07/20/18 [History] Calcium Lactate 1,500 mg PO DAILY 07/20/18 [History] Cholecalciferol (Vitamin D3) [Vitamin D3] 1,000 mg PO DAILY 07/20/18 [History] Cyclobenzaprine [Flexeril] 10 mg PO Q8H PRN 07/20/18 [History] Dextromethorphan/guaiFENesin [Mucinex DM ER 600-30 MG] 1 tab PO DAILY 07/20/18 [ History] Fluticasone/Salmeterol [Advair 100-50] 1 puff INH BID 07/20/18 [History] Furosemide [Lasix] 20 mg PO DAILY 07/20/18 [History] Glucosamine [Glucosamine Sulfate] 3 tab PO DAILY 07/20/18 [History] Ibuprofen [Advil] 400 mg PO Q6H PRN 07/20/18 [History] Metoprolol Succinate 25 mg PO DAILY 07/20/18 [History] Multivitamin [One Daily Multivitamin] 1 tab PO DAILY 07/20/18 [History] Sennosides [Senna] 8.6 mg PO BEDTIME PRN 07/20/18 [History] Acetaminophen [Tylenol Arthritis] 650 mg PO Q8HR PRN 07/21/18 [History] Azithromycin [Zithromax] 250 mg PO DAILY 07/21/18 [History] predniSONE [Prednisone] 10 mg PO DAILY 07/21/18 [History] Past Medical History HEENT History: Reports: Cataract, Sinusitis Cardiovascular History: Reports: Heart Failure, Hypertension, PVD, Stents ( peripheral vascular), Other (See Below) Other Cardiovascular History: Rheumatic fever Hx / PVD with Aortic Bi-Fem per family Respiratory History: Reports: Bronchitis, Recurrent, COPD, Pneumonia, Recurrent Other Respiratory History: pneumonia in September 2016 Gastrointestinal History: Reports: Chronic Constipation, PUD Other Gastrointestinal History: STOMACH ULCERS Genitourinary History: Reports: None Other OB/BYN History: HYSTERECTOMY Musculoskeletal History: Reports: Arthritis, Back Pain, Chronic, Osteoporosis Neurological History: Reports: None Other Neuro History: patient states she felt she had like a "mini stroke" around the time her ; was never diagnosed Psychiatric History: Reports: Other (See Below) Other Psychiatric History: pt. feels that she is depressed Endocrine/Metabolic History: Reports: Osteoporosis Dermatologic History: Reports: None Other Dermatologic History: OPEN SORE ON RIGHT ARM - Infectious Disease History Infectious Disease History: Reports: Chicken Pox, Measles, Mumps, Rheumatic Fever, Rubella - Past Surgical History HEENT Surgical History: Reports: Cataract Surgery Cardiovascular Surgical History: Reports: Other (See Below) Other Cardiovascular Surgeries/Procedures: FEMORAL POPLITEAL BYPASS Respiratory Surgical History: Reports: None GI Surgical History: Reports: Appendectomy, Colonoscopy, EGD Female Surgical History: Reports: Hysterectomy Endocrine Surgical History: Reports: None Neurological Surgical History: Reports: None Musculoskeletal Surgical History: Reports: Other (See Below) Other Musculoskeletal Surgeries/Procedures:: shoulder surgeries Social & Family History - Family History Family Medical History: Noncontributory Endocrine/Metabolic: Reports: Hypothyroidism, Other (See Below) Other Endocrine/Metabolic Family History: pt. states her family has lots of thyroid problems - Tobacco Use Smoking Status *Q: Current Every Day Smoker Years of Tobacco use: 55 Packs/Tins Daily: 0.1 - Caffeine Use Caffeine Use: Reports: Coffee, Soda - Recreational Drug Use Recreational Drug Use: No - Living Situation & Occupation Living situation: Reports: Occupation: Retired H&P Review of Systems - Review of Systems: Review Of Systems: See Below General: Reports: Fever, Fatigue HEENT: Reports: No Symptoms. Denies: Post Nasal Drip, Sore Throat Pulmonary: Reports: Shortness of Breath, Cough. Denies: Sputum Cardiovascular: Reports: Dyspnea on Exertion, Edema. Denies: Chest Pain, Palpitations, Orthopnea, PND, Claudication Gastrointestinal: Reports: No Symptoms, Constipation. Denies: Abdominal Pain, Diarrhea Genitourinary: Reports: No Symptoms. Denies: Dysuria, Frequency Musculoskeletal: Reports: Back Pain Skin: Reports: No Symptoms Psychiatric: Reports: No Symptoms Neurological: Reports: No Symptoms. Denies: Confusion, Dizziness, Headache Hematologic/Lymphatic: Reports: No Symptoms Exam - Exam Exam: See Below - Vital Signs Vital Signs: Last Vital Signs Temp 98.2 F 07/21/18 07:29 Pulse 93 07/21/18 10:02 Resp 18 07/21/18 07:29 BP 156/79 H 07/21/18 10:02 Pulse Ox 97 07/21/18 09:17 Weight: 190 lb 2 oz - Exam Quality Assessment: Supplemental Oxygen General: Alert, Oriented, Cooperative HEENT: Conjunctiva Clear, EOMI, Mucosa Moist & [place], Nares Patent, Posterior Pharynx Clear, Pupils Equal, Pupils Reactive Neck: Supple, Trachea Midline Lungs: Normal Respiratory Effort, Decreased Breath Sounds, Rales, Wheezing ( Bibasilar Rales with diffuse wheezing) Cardiovascular: Regular Rate, Regular Rhythm GI/Abdominal Exam: Normal Bowel Sounds, Soft, Non-Tender, No Organomegaly, No Distention, No Mass Back Exam: Normal Inspection Extremities: Non-Tender, Pedal Edema. No: Mottled, Pallor Peripheral Pulses: 1+: Posterior Tibial (L), Posterior Tibial (R), Dorsalis Pedis (L), Dorsalis Pedis (R) Skin: Warm, Dry, Intact Neurological: Cranial Nerves Intact Neuro Extensive - Mental Status: Alert, Normal Mood/Affect, Normal Cognition, Memory Intact Neuro Extensive - Motor, Sensory, Reflexes: CN II-XII Intact Psychiatric: Alert, Normal Affect, Normal Mood - Patient Data Lab Results Last 24 hrs: Laboratory Results - last 24 hr 07/20/18 07/20/18 07/20/18 Range/Units 17:05 17:05 19:59 WBC 10.21 H 12.88 H (3.98-10.04) K/mm3 RBC 4.24 4.34 (3.98-5.22) M/mm3 Hgb 13.5 13.9 (11.2-15.7) gm/L Hct 42.0 43.2 (34.1-44.9) % MCV 99.1 H 99.5 H (79.4-94.8) fl MCH 31.8 32.0 (25.6-32.2) pg MCHC 32.1 L 32.2 (32.2-35.5) g/dl RDW Std Deviation 53.7 H 54.5 H (36.4-46.3) fL Plt Count 246 233 (182-369) K/mm3 MPV 9.9 9.8 (9.4-12.3) fl Neut % (Auto) 68.9 (34.0-71.1) % Lymph % (Auto) 15.6 L (19.3-51.7) % [place] % (Auto) 8.9 (4.7-12.5) % Eos % (Auto) 2.1 (0.7-5.8) Baso % (Auto) 0.5 (0.1-1.2) % Neut # (Auto) 8.88 H (1.56-6.13) K/mm3 Lymph # (Auto) 2.01 (1.18-3.74) K/mm3 [place] # (Auto) 1.14 H (0.24-0.36) K/mm3 Eos # (Auto) 0.27 (0.04-0.36) K/mm3 Baso # (Auto) 0.06 (0.01-0.08) K/mm3 Neutrophils % (Manual) 82 H (40-60) % Band Neutrophils % 1 (0-10) % Lymphocytes % (Manual) 11 L (20-40) % Atypical Lymphs % 0 % Monocytes % (Manual) 4 (2-10) % Eosinophils % (Manual) 1 (0.7-5.8) % Basophils % (Manual) 1 (0.1-1.2) Manual Slide Review Normal smear Platelet Estimate Adequate RBC Morph Comment Normal Sodium 135 L (136-145) mEq/L Potassium 3.7 (3.5-5.1) mEq/L Chloride 99 (98-107) mEq/L Carbon Dioxide 27 (21-32) mEq/L Anion Gap 12.7 (5-15) BUN 24 H (7-18) mg/dL Creatinine 1.6 H (0.55-1.02) mg/dL Est Cr Clr Drug Dosing 21.82 mL/min Estimated GFR (MDRD) 31 (>60) mL/min BUN/Creatinine Ratio 15.0 (14-18) Glucose 109 (83-115) mg/dL Hemoglobin A1c (4.50-6.20) % Calcium 9.1 (8.5-10.1) mg/dL Magnesium (1.8-2.4) mg/dl Total Bilirubin 0.3 (0.2-1.0) mg/dL AST 22 (15-37) U/L ALT 32 (14-59) U/L Alkaline Phosphatase 95 (46-116) U/L Troponin I (0.00-0.056) ng/mL Total Protein 6.9 (6.4-8.2) g/dl Albumin 3.3 L (3.4-5.0) g/dl Globulin 3.6 gm/dL Albumin/Globulin Ratio 0.9 L (1-2) TSH 3rd Generation (0.358-3.74) uIU/mL 07/20/18 07/21/18 07/21/18 Range/Units 20:00 09:21 09:21 WBC (3.98-10.04) K/mm3 RBC (3.98-5.22) M/mm3 Hgb (11.2-15.7) gm/L Hct (34.1-44.9) % MCV (79.4-94.8) fl MCH (25.6-32.2) pg MCHC (32.2-35.5) g/dl RDW Std Deviation (36.4-46.3) fL Plt Count (182-369) K/mm3 MPV (9.4-12.3) fl Neut % (Auto) (34.0-71.1) % Lymph % (Auto) (19.3-51.7) % [place] % (Auto) (4.7-12.5) % Eos % (Auto) (0.7-5.8) Baso % (Auto) (0.1-1.2) % Neut # (Auto) (1.56-6.13) K/mm3 Lymph # (Auto) (1.18-3.74) K/mm3 [place] # (Auto) (0.24-0.36) K/mm3 Eos # (Auto) (0.04-0.36) K/mm3 Baso # (Auto) (0.01-0.08) K/mm3 Neutrophils % (Manual) (40-60) % Band Neutrophils % (0-10) % Lymphocytes % (Manual) (20-40) % Atypical Lymphs % % Monocytes % (Manual) (2-10) % Eosinophils % (Manual) (0.7-5.8) % Basophils % (Manual) (0.1-1.2) Manual Slide Review Platelet Estimate RBC Morph Comment Sodium 137 135 L (136-145) mEq/L Potassium 3.7 4.5 (3.5-5.1) mEq/L Chloride 98 97 L (98-107) mEq/L Carbon Dioxide 28 24 (21-32) mEq/L Anion Gap 14.7 18.5 H (5-15) BUN 24 H 28 H (7-18) mg/dL Creatinine 1.5 H 1.5 H (0.55-1.02) mg/dL Est Cr Clr Drug Dosing 23.28 23.28 mL/min Estimated GFR (MDRD) 34 34 (>60) mL/min BUN/Creatinine Ratio 16.0 18.7 H (14-18) Glucose 93 160 H (83-115) mg/dL Hemoglobin A1c 6.20 (4.50-6.20) % Calcium 9.4 9.7 (8.5-10.1) mg/dL Magnesium 1.7 L (1.8-2.4) mg/dl Total Bilirubin 0.4 0.4 (0.2-1.0) mg/dL AST 26 25 (15-37) U/L ALT 32 33 (14-59) U/L Alkaline Phosphatase 100 99 (46-116) U/L Troponin I 0.019 < 0.017 (0.00-0.056) ng/mL Total Protein 7.1 7.2 (6.4-8.2) g/dl Albumin 3.5 3.3 L (3.4-5.0) g/dl Globulin 3.6 3.9 gm/dL Albumin/Globulin Ratio 1.0 0.9 L (1-2) TSH 3rd Generation 0.705 (0.358-3.74) uIU/mL 07/21/18 Range/Units 09:21 WBC 9.49 (3.98-10.04) K/mm3 RBC 4.41 (3.98-5.22) M/mm3 Hgb 14.0 (11.2-15.7) gm/L Hct 43.6 (34.1-44.9) % MCV 98.9 H (79.4-94.8) fl MCH 31.7 (25.6-32.2) pg MCHC 32.1 L (32.2-35.5) g/dl RDW Std Deviation 53.3 H (36.4-46.3) fL Plt Count 236 (182-369) K/mm3 MPV 9.9 (9.4-12.3) fl Neut % (Auto) 91.1 H (34.0-71.1) % Lymph % (Auto) 5.8 L (19.3-51.7) % [place] % (Auto) 1.6 L (4.7-12.5) % Eos % (Auto) 0 L (0.7-5.8) Baso % (Auto) 0.1 (0.1-1.2) % Neut # (Auto) 8.65 H (1.56-6.13) K/mm3 Lymph # (Auto) 0.55 L (1.18-3.74) K/mm3 [place] # (Auto) 0.15 L (0.24-0.36) K/mm3 Eos # (Auto) 0.00 L (0.04-0.36) K/mm3 Baso # (Auto) 0.01 (0.01-0.08) K/mm3 Neutrophils % (Manual) (40-60) % Band Neutrophils % (0-10) % Lymphocytes % (Manual) (20-40) % Atypical Lymphs % % Monocytes % (Manual) (2-10) % Eosinophils % (Manual) (0.7-5.8) % Basophils % (Manual) (0.1-1.2) Manual Slide Review Abnormal smear Platelet Estimate RBC Morph Comment Sodium (136-145) mEq/L Potassium (3.5-5.1) mEq/L Chloride (98-107) mEq/L Carbon Dioxide (21-32) mEq/L Anion Gap (5-15) BUN (7-18) mg/dL Creatinine (0.55-1.02) mg/dL Est Cr Clr Drug Dosing mL/min Estimated GFR (MDRD) (>60) mL/min BUN/Creatinine Ratio (14-18) Glucose (83-115) mg/dL Hemoglobin A1c (4.50-6.20) % Calcium (8.5-10.1) mg/dL Magnesium (1.8-2.4) mg/dl Total Bilirubin (0.2-1.0) mg/dL AST (15-37) U/L ALT (14-59) U/L Alkaline Phosphatase (46-116) U/L Troponin I (0.00-0.056) ng/mL Total Protein (6.4-8.2) g/dl Albumin (3.4-5.0) g/dl Globulin gm/dL Albumin/Globulin Ratio (1-2) TSH 3rd Generation (0.358-3.74) uIU/mL Result Diagrams: 07/21/18 09:21 07/21/18 09:21 Cecilio Results Last 24 hrs: Microbiology 07/20/18 17:05 Influenza Type A Antigen Screen - Final Nasal, Unspecified NEGATIVE INFLUENZA A VIRUS AG Influenza Type B Antigen Screen - Final NEGATIVE INFLUENZA B VIRUS AG - Problem List (1) COPD exacerbation SNOMED Code(s): 831579109 ICD Code: J44.1 - CHRONIC OBSTRUCTIVE PULMONARY DISEASE W (ACUTE) EXACERBATION Status: Acute Priority: High Current Visit: Yes (2) CHF (congestive heart failure) SNOMED Code(s): 87234301 ICD Code: I50.9 - HEART FAILURE, UNSPECIFIED Status: Acute Priority: High Current Visit: Yes (3) Back pain SNOMED Code(s): 589033801 ICD Code: M54.9 - DORSALGIA, UNSPECIFIED Status: Acute Priority: Low Current Visit: Yes (4) Hypomagnesemia SNOMED Code(s): 272866546 ICD Code: E83.42 - HYPOMAGNESEMIA Status: Acute Priority: Medium Current Visit: Yes (5) HTN (hypertension) SNOMED Code(s): 23266255 ICD Code: I10 - ESSENTIAL (PRIMARY) HYPERTENSION Status: Acute Priority: Medium Current Visit: Yes Problem List Initiated/Reviewed/Updated: Yes Orders Last 24hrs: Active Orders 24 hr Category Date Time Status Admission Status [Patient Status] [ADT] Routine ADT 07/20/18 20:57 Active Antiembolic Devices [RC] PER UNIT ROUTINE Care 07/21/18 09:07 Active Cardiac Monitoring [RC] . DIRECTED Care 07/20/18 19:08 Active Daily Weight [Height and Weight] [RC] DAILY Care 07/21/18 09:09 Active Intake and Output Strict [RC] ASDIRECTED Care 07/21/18 09:09 Active Oxygen Therapy [RC] PRN Care 07/20/18 19:08 Active Peripheral IV Care [RC] Q2HR Care 07/20/18 19:09 Active RT Aerosol Therapy [RC] ASDIRECTED Care 07/21/18 09:02 Active Up With Assistance [RC] ASDIRECTED Care 07/20/18 23:58 Active Consult to Physical Therapy [PT Evaluation and Cons 07/21/18 09:04 Active Treatment] [CONS] Routine Heart Healthy Diet [DIET] Diet 07/21/18 Breakfast Active Echo Comp wo Cont [US] Routine Exams 07/21/18 08:57 Ordered PRO B-TYPE NATRIUR PEPT,BNPPRO [CHEM] Urgent Lab 07/21/18 09:21 Received Acetaminophen [Tylenol] Med 07/21/18 09:03 Active 650 mg PO Q6H PRN Albuterol [Proventil Neb Soln] Med 07/20/18 21:18 Active 2.5 mg NEB Q4H PRN Albuterol/Ipratropium [DuoNeb 3.0-0.5 MG/3 ML] Med 07/21/18 06:00 Active 3 ml NEB QIDRT Azithromycin [Zithromax] 500 mg Med 07/21/18 10:00 Active Sodium Chloride 0.9% [Normal Saline] 250 ml IV Q24H Budesonide [Pulmicort] Med 07/21/18 21:00 Active 0.5 mg NEB BIDRT Metoprolol Succinate [Toprol XL] Med 07/21/18 09:00 Active 25 mg PO DAILY Sodium Chloride 0.9% [Saline Flush] Med 07/20/18 19:08 Active 10 ml FLUSH ASDIRECTED PRN cefTRIAXone [Rocephin] 1 gm Med 07/21/18 09:00 Active Sodium Chloride 0.9% [Normal Saline] 100 ml IV Q24H methylPREDNISolone Sod Succ [Solu-MEDROL] Med 07/21/18 09:00 Active 40 mg IVPUSH Q6H Peripheral IV Insertion Adult [OM.PC] Stat Oth 07/20/18 19:08 Ordered SCD [Sequential Compression Device] [OM.PC] Routine Oth 07/21/18 09:07 Ordered Resuscitation Status Routine Resus Stat 07/20/18 22:47 Ordered Medication Orders Acetaminophen (Tylenol) 650 mg PO Q6H PRN PRN Reason: Pain Albuterol (Proventil Neb Soln) 2.5 mg NEB Q4H PRN PRN Reason: Shortness of Breath Albuterol/Ipratropium (Duoneb 3.0-0.5 Mg/3 Ml) 3 ml NEB QIDRT PAULA Last Admin: 07/21/18 09:16 Dose: 3 ml Admin: 07/21/18 05:38 Dose: 3 ml Budesonide (Pulmicort) 0.5 mg NEB BIDRT [facility] Azithromycin 500 mg/ Sodium (Chloride) 250 mls @ 250 mls/hr IV Q24H [facility] Ceftriaxone Sodium 1 gm/ (Sodium Chloride) 100 mls @ 200 mls/hr IV Q24H [facility] Last Admin: 07/21/18 10:01 Dose: 200 mls/hr Methylprednisolone Sodium Succinate (Solu-Medrol) 40 mg IVPUSH Q6H [facility] Last Admin: 07/21/18 10:01 Dose: 40 mg Metoprolol Succinate (Toprol Xl) 25 mg PO DAILY [facility] Last Admin: 07/21/18 10:02 Dose: 25 mg Sodium Chloride (Saline Flush) 10 ml FLUSH ASDIRECTED PRN PRN Reason: Keep Vein Open Last Admin: 07/20/18 19:36 Dose: 10 ml Assessment/Plan Comment:: COPD exacerbation - 55 pack year hx with hx of COPD - pt. counseled on stopping smoking. Pt. refuses help at this time and doesn' t want nicotine replacement - DuoNeb, methylprednisolone IV, FiO2 to keep oxygen above 90%. - Rocephin and azithromycin for COPD exacerbation - Pulmicort bid - Incentive spirometry to bedside CHF - BNP 558 - Continue home Lasix 20 mg by mouth. - increase metoprolol succinate 50 mg a day. - Echocardiogram - Hold off on BORIS inhibitor for now because of worsening renal function. CRI - Last creatinine from December 2017 creatinine was 1.2. - Continue to monitor renal function Upper thoracic back pain - Possible secondary to cough. - Acetaminophen for pain. Hypertension - increase metoprolol succinate to 50 mg a day Hypomagnesemia - Magnesium sulfate 2 g IV and repeat in the morning. Hx of PUD - Continue PPI. VTE prophylaxis with SCDs. Discharge in the next day or 2.
[2018-07-21] MEDS ORDERED: Magnesium Sulfate/Water 2 GM in Premix Bag 1 BAG IV ONE (11:30)
[2018-07-21] MEDS ORDERED: Metoprolol Succinate 25 MG Tab.ER PO ONE (11:30)
[2018-07-21] MEDS: Furosemide 20 MG Tab PO SCH (13:27)
[2018-07-21] MEDS: Pantoprazole 40 MG Tab.CR PO SCH (13:28)
[2018-07-21] MEDS: Polyethylene Glycol 3350 Powder 17 GM Packet PO SCH (13:30)
[2018-07-21] MEDS: Budesonide 0.5 MG/2 ML Neb Susp NEB SCH (21:27)
[2018-07-21] MEDS: Acetaminophen/HYDROcodone 325-5 MG Tab PO PRN (21:56)
[2018-07-22] MEDS: methylPREDNISolone Sodium Succinate 40 MG/1 ML SDV IVPUSH SCH (05:01)
[2018-07-22] MEDS: Acetaminophen/HYDROcodone 325-5 MG Tab PO PRN ×2 (05:02→11:17)
[2018-07-22] MEDS: Budesonide 0.5 MG/2 ML Neb Susp NEB SCH (05:50)
[2018-07-22] MEDS: Albuterol/Ipratropium 3.0-0.5 MG/3 ML Neb Soln NEB SCH ×2 (05:50→09:24)
[2018-07-22] MEDS ORDERED: Metoprolol Succinate 50 MG Tab.ER PO SCH (09:00)
[2018-07-22] MEDS ORDERED: Azithromycin 250 MG Tab PO ONE (09:00)
[2018-07-22 09:24] VITALS: BP 138/96
[2018-07-22] MEDS: Furosemide 20 MG Tab PO SCH (09:46)
[2018-07-22] MEDS: Pantoprazole 40 MG Tab.CR PO SCH (09:46)
[2018-07-22] MEDS: Polyethylene Glycol 3350 Powder 17 GM Packet PO SCH ×2 (09:47→10:11)
[2018-07-22] MEDS: cefTRIAXone 1 GM in Sodium Chloride 0.9% 100 ML IV SCH (09:47)
--- NOTE | 2018-07-22 17:06 | PCM.DCSUM1 ---
Discharge Summary - Hospital Course Brief History: 77-year-old female smoker with a history of COPD, CHF, peripheral artery disease, and hypertension comes in via the emergency room secondary to worsening shortness of breath and upper back pain. Patient states that a cough and shortness of breath started approximately 2 weeks ago. She was seen by her primary care provider, Dr. Martinez, a little over 1 week ago and started on prednisone and Zithromax. Patient took her last dose of prednisone on Wednesday, 4 days ago. She states that by Wednesday she was already getting worse. Last night she became more short of breath and felt like she was developing pneumonia, which is what initiated her presentation to the emergency room. She felt feverish a couple of days ago but not recently. She refuses the flu shot because of side effects. She has a [id number] history. Patient also states that she has significant shortness of breath with ambulation. She can only walk a short distance before getting short of breath. She denies any shortness of breath at rest. She was started on Lasix last March after returning from vacation with significant lower extremity swelling. She was seen by cardiology approximately one year ago and had a Lexiscan and echocardiogram done. Cardiology did place her on metoprolol. Patient does state that she has had some increased swelling in her lower extremities recently. Diagnosis: Stroke: No - Discharge Data Discharge Date: 07/22/18 Discharge Disposition: Home, Self-Care 01 Condition: Good - Discharge Diagnosis/Problem(s) (1) COPD exacerbation SNOMED Code(s): 464181064 ICD Code: J44.1 - CHRONIC OBSTRUCTIVE PULMONARY DISEASE W (ACUTE) EXACERBATION Status: Acute Priority: High (2) CHF (congestive heart failure) SNOMED Code(s): 05334253 ICD Code: I50.9 - HEART FAILURE, UNSPECIFIED Status: Acute Priority: High (3) Back pain SNOMED Code(s): 081838221 ICD Code: M54.9 - DORSALGIA, UNSPECIFIED Status: Acute Priority: Low (4) Hypomagnesemia SNOMED Code(s): 694279251 ICD Code: E83.42 - HYPOMAGNESEMIA Status: Acute Priority: Medium (5) HTN (hypertension) SNOMED Code(s): 63523876 ICD Code: I10 - ESSENTIAL (PRIMARY) HYPERTENSION Status: Acute Priority: Medium - Patient Summary/Data Consults: Consultations 07/21/18 09:04 Consult to Physical Therapy [PT Evaluation and Treatment] [CONS] Routine - Patient Instructions Diet: Heart Healthy Diet Activity: As Tolerated Driving: Do Not Drive Showering/Bathing: May Shower Notify Provider of: Fever, Increased Pain, Swelling and Redness, Drainage, Nausea and/or Vomiting - Discharge Plan *PRESCRIPTION DRUG MONITORING PROGRAM REVIEWED*: No *COPY OF PRESCRIPTION DRUG MONITORING REPORT IN PATIENT LEONID: No Prescriptions/Med Rec: Cefuroxime Axetil [Ceftin] 500 mg PO Q12HR 5 Days #10 tablet Acetaminophen/HYDROcodone [[place] 325-5 MG] 1 tab PO Q4H PRN #10 tablet PRN Reason: Pain (Moderate 4-6) Azithromycin [Zithromax] 250 mg PO DAILY 3 Days #3 tablet methylPREDNISolone [Medrol] 4 mg PO ASDIRECTED #1 dosepk Metoprolol Succinate [Toprol XL 50mg] 50 mg PO DAILY 30 Days #30 tab.er Home Medications: Home Meds Omeprazole 20 mg PO BID 01/05/15 [History] Acetaminophen [Tylenol Arthritis] 650 mg PO Q8H PRN 07/20/18 [History] Albuterol Sulfate [Proventil Hfa] 2 puff INH Q4H PRN 07/20/18 [History] Albuterol Sulfate [Proventil Hfa] 2 puff INH TID 07/20/18 [History] Albuterol/Ipratropium [DuoNeb 3.0-0.5 MG/3 ML] 1 applic INH QID PRN 07/20/18 [ History] Ciurk-Q-Lfdvgvdeuepul [Beano] 1 tab PO ASDIRECTED PRN 07/20/18 [History] Calcium Lactate 1,500 mg PO DAILY 07/20/18 [History] Cholecalciferol (Vitamin D3) [Vitamin D3] 1,000 mg PO DAILY 07/20/18 [History] Cyclobenzaprine [Flexeril] 10 mg PO Q8H PRN 07/20/18 [History] Dextromethorphan/guaiFENesin [Mucinex DM ER 600-30 MG] 1 tab PO DAILY 07/20/18 [ History] Fluticasone/Salmeterol [Advair 100-50] 1 puff INH BID 07/20/18 [History] Furosemide [Lasix] 20 mg PO DAILY 07/20/18 [History] Glucosamine [Glucosamine Sulfate] 3 tab PO DAILY 07/20/18 [History] Multivitamin [One Daily Multivitamin] 1 tab PO DAILY 07/20/18 [History] Sennosides [Senna] 8.6 mg PO BEDTIME PRN 07/20/18 [History] Acetaminophen/HYDROcodone [[place] 325-5 MG] 1 tab PO Q4H PRN #10 tablet 07/22/18 [Rx] Azithromycin [Zithromax] 250 mg PO DAILY 3 Days #3 tablet 07/22/18 [Rx] Budesonide [Pulmicort] 0.5 mg NEB BIDRT neb 07/22/18 [Rx] Cefuroxime Axetil [Ceftin] 500 mg PO Q12HR 5 Days #10 tablet 07/22/18 [Rx] Metoprolol Succinate [Toprol XL 50mg] 50 mg PO DAILY 30 Days #30 tab.er [Rx] methylPREDNISolone [Medrol] 4 mg PO ASDIRECTED #1 dosepk 07/22/18 [Rx] Oxygen Therapy Mode: Room Air Patient Handouts: Chronic Obstructive Pulmonary Disease Exacerbation, Easy-to- Read, Heart-Healthy Eating Plan, Ukes-vm-[id number], Home Oxygen Use, Adult, Steps to Quit Smoking Referrals: Charles Martinez MD [Primary Care Provider] - 07/29/18 1:00 pm (Dr. Martinez Follow up in 1 week) - Discharge Summary/Plan Comment DC Time >30 min.: Yes Discharge Summary/Plan Comment: COPD exacerbation - 55 pack year hx with hx of COPD - pt. counseled on stopping smoking. Pt. refuses help at this time and doesn' t want nicotine replacement - DuoNeb, methylprednisolone PO tapering dose. - Ceftin and azithromycin for COPD exacerbation CHF - Ejection fraction of 65% with some diastolic dysfunction - Continue home Lasix 20 mg by mouth. - increase metoprolol succinate 50 mg a day. CRI - Improved - Continue to monitor renal function as outpatient Upper thoracic back pain - Patient will go home with a short course of [place] 5/325 every 4 hours when necessary pain #10 Hypertension - increase metoprolol succinate to 50 mg a day Hypomagnesemia - Resolved Hx of PUD - Continue PPI. - General Info Date of Service: 07/22/18 Admission Dx/Problem (Free Text: Admission Diagnosis/Problem Admission Diagnosis/Problem Chronic obstructive pulmonary disease Subjective Update: Patient had an uneventful night. She was weaned off of her oxygen. This morning she was switched to oral antibiotics and steroids and had continued good recovery. Echocardiogram was done and results showed a left ventricular ejection fraction of 65% with normal left ventricular systolic function. She did have elevated left ventricular end diastolic pressure. Minimal valve disease , please see echo summary. Patient anticipates going home today. - Review of Systems General: Reports: No Symptoms HEENT: Reports: No Symptoms Pulmonary: Reports: No Symptoms Cardiovascular: Reports: No Symptoms Gastrointestinal: Reports: No Symptoms - Patient Data Vitals - Most Recent: Last Vital Signs Temp 97.3 F 07/22/18 08:37 Pulse 87 07/22/18 09:46 Resp 16 07/22/18 08:37 BP 138/96 H 07/22/18 09:46 Pulse Ox 95 07/22/18 09:25 Weight - Most Recent: 189 lb 0.989 oz I&O - Last 24 hours: Intake & Output 07/22/18 07/22/18 07/22/18 06:59 14:59 22:59 Intake Total 200 0 Balance 200 0 Lab Results - Last 24 hrs: Laboratory Results - last 24 hr 07/22/18 07/22/18 Range/Units 05:25 05:25 WBC 14.81 H (3.98-10.04) K/mm3 RBC 3.97 L (3.98-5.22) M/mm3 Hgb 12.6 (11.2-15.7) gm/L Hct 39.0 (34.1-44.9) % MCV 98.2 H (79.4-94.8) fl MCH 31.7 (25.6-32.2) pg MCHC 32.3 (32.2-35.5) g/dl RDW Std Deviation 51.5 H (36.4-46.3) fL Plt Count 228 (182-369) K/mm3 MPV 10.2 (9.4-12.3) fl Neut % (Auto) 89.2 H (34.0-71.1) % Lymph % (Auto) 5.7 L (19.3-51.7) % [place] % (Auto) 4.6 L (4.7-12.5) % Eos % (Auto) 0 L (0.7-5.8) Baso % (Auto) 0.0 L (0.1-1.2) % Neut # (Auto) 13.22 H (1.56-6.13) K/mm3 Lymph # (Auto) 0.84 L (1.18-3.74) K/mm3 [place] # (Auto) 0.68 H (0.24-0.36) K/mm3 Eos # (Auto) 0.00 L (0.04-0.36) K/mm3 Baso # (Auto) 0.00 L (0.01-0.08) K/mm3 Manual Slide Review Abnormal smear Sodium 135 L (136-145) mEq/L Potassium 4.3 (3.5-5.1) mEq/L Chloride 98 (98-107) mEq/L Carbon Dioxide 27 (21-32) mEq/L Anion Gap 14.3 (5-15) BUN 31 H (7-18) mg/dL Creatinine 1.2 H (0.55-1.02) mg/dL Est Cr Clr Drug Dosing 29.10 mL/min Estimated GFR (MDRD) 44 (>60) mL/min BUN/Creatinine Ratio 25.8 H (14-18) Glucose 140 H (83-115) mg/dL Calcium 9.5 (8.5-10.1) mg/dL Phosphorus 4.7 (2.6-4.7) mg/dL Magnesium 2.3 (1.8-2.4) mg/dl Total Bilirubin 0.3 (0.2-1.0) mg/dL AST 26 (15-37) U/L ALT 31 (14-59) U/L Alkaline Phosphatase 79 (46-116) U/L Troponin I < 0.017 (0.00-0.056) ng/mL Total Protein 6.4 (6.4-8.2) g/dl Albumin 2.9 L (3.4-5.0) g/dl Globulin 3.5 gm/dL Albumin/Globulin Ratio 0.8 L (1-2) Med Orders - Current: Current Medications Discontinued Medications Acetaminophen (Tylenol) 650 mg PO Q6H PRN PRN Reason: Pain Last Admin: 07/21/18 13:27 Dose: 650 mg Hydrocodone Bitart/Acetaminophen ([place] 325-5 Mg) 1 tab PO Q4H PRN PRN Reason: Pain (moderate 4-6) Last Admin: 07/22/18 11:17 Dose: 1 tab Albuterol (Proventil Neb Soln) 2.5 mg NEB Q4H PRN PRN Reason: Shortness of Breath Albuterol/Ipratropium (Duoneb 3.0-0.5 Mg/3 Ml) 3 ml NEB ONETIME ONE Stop: 07/20/18 19:10 Last Admin: 07/20/18 19:25 Dose: 3 ml Albuterol/Ipratropium (Duoneb 3.0-0.5 Mg/3 Ml) 3 ml NEB ONETIME ONE Stop: 07/20/18 20:26 Last Admin: 07/20/18 20:35 Dose: 3 ml Albuterol/Ipratropium (Duoneb 3.0-0.5 Mg/3 Ml) 3 ml NEB QIDRT [facility] Last Admin: 07/22/18 09:24 Dose: 3 ml Azithromycin (Zithromax) 250 mg PO ONETIME ONE Stop: 07/22/18 09:01 Last Admin: 07/22/18 09:47 Dose: 250 mg Budesonide (Pulmicort) 0.5 mg NEB BIDRT [facility] Last Admin: 07/22/18 05:50 Dose: 0.5 mg Furosemide (Lasix) 20 mg PO DAILY [facility] Last Admin: 07/22/18 09:46 Dose: 20 mg Hydromorphone HCl (Dilaudid) 0.5 mg IVPUSH ONETIME ONE Stop: 07/20/18 19:43 Last Admin: 07/20/18 19:52 Dose: 0.5 mg Azithromycin 500 mg/ Sodium (Chloride) 250 mls @ 250 mls/hr IV Q24H [facility] Last Admin: 07/21/18 12:03 Dose: 250 mls/hr Ceftriaxone Sodium 1 gm/ (Sodium Chloride) 100 mls @ 200 mls/hr IV Q24H [facility] Last Admin: 07/22/18 09:47 Dose: 200 mls/hr Magnesium Sulfate 2 gm/ Premix 50 mls @ 25 mls/hr IV ONETIME ONE Stop: 07/21/18 13:29 Last Admin: 07/21/18 13:31 Dose: 25 mls/hr Methylprednisolone (Medrol) 32 mg PO Q12H [facility] Methylprednisolone Sodium Succinate (Solu-Medrol) 125 mg IVPUSH ONETIME ONE Stop: 07/20/18 19:10 Last Admin: 07/20/18 19:36 Dose: 125 mg Methylprednisolone Sodium Succinate (Solu-Medrol) 125 mg IVPUSH ONETIME ONE Stop: 07/21/18 02:31 Last Admin: 07/21/18 02:54 Dose: 125 mg Methylprednisolone Sodium Succinate (Solu-Medrol) 40 mg IVPUSH Q6H [facility] Last Admin: 07/22/18 05:01 Dose: 40 mg Metoprolol Succinate (Toprol Xl) 25 mg PO DAILY [facility] Last Admin: 07/21/18 10:02 Dose: 25 mg Metoprolol Succinate (Toprol Xl) 50 mg PO DAILY [facility] Last Admin: 07/22/18 09:46 Dose: 50 mg Metoprolol Succinate (Toprol Xl) 25 mg PO ONETIME ONE Stop: 07/21/18 11:31 Last Admin: 07/21/18 13:28 Dose: 25 mg Pantoprazole Sodium (Protonix) 40 mg PO DAILY [facility] Last Admin: 07/22/18 09:46 Dose: 40 mg Polyethylene Glycol (Miralax) 17 gm PO DAILY [facility] Last Admin: 07/22/18 10:11 Dose: Not Given Sodium Chloride (Saline Flush) 10 ml FLUSH ASDIRECTED PRN PRN Reason: Keep Vein Open Last Admin: 07/20/18 19:36 Dose: 10 ml - Exam General: Reports: Alert, Oriented HEENT: Reports: Pupils Equal Neck: Reports: Supple Lungs: Reports: Clear to Auscultation, Normal Respiratory Effort, Wheezing ( Very minimal wheeze) Cardiovascular: Reports: Regular Rate, Regular Rhythm
== END 2018-07-22 13:50 | disposition home or self-care (01) ==
LOC: JD.ED 16:35 → JD.MS 20:57
PROVIDERS: ADMIT Family Medicine; ATTEND Family Medicine
DX: J44.1 Chronic obstructive pulmonary disease with (acute) exacerbation (principal); I11.0 Hypertensive heart disease with heart failure; I50.9 Heart failure, unspecified; I73.9 Peripheral vascular disease, unspecified; J18.9 Pneumonia, unspecified organism; J98.11 Atelectasis; M81.0 Age-related osteoporosis without current pathological fracture; M19.90 Unspecified osteoarthritis, unspecified site; E83.42 Hypomagnesemia; M54.9 Dorsalgia, unspecified; F17.210 Nicotine dependence, cigarettes, uncomplicated; Z79.899 Other long term (current) drug therapy; Z88.0 Allergy status to penicillin
CPT/HCPCS: 36415; 71045; 71046; 80053; 83036; 83735; 83880; 84100; 84443; 84484; 85007; 85025; 85027; 87804; 93005; 93306; 94640; 94761; 96374; 96375; 97110; 97140; 97161; 97530; 99285; A9270; J0456; J0696; J1170; J2920; J2930; J3475; J7030; J7050; 93010; 96365; 96366; 96367; 96376; G0378; J7620-GY

== ENCOUNTER 2018-07-25 15:07 | Emergency (ER) | payer MEDICARE ==
[2018-07-25] MEDS ORDERED: Albuterol 0.083% 2.5 MG/3 ML Neb Soln NEB ONE (16:25)
--- NOTE | 2018-07-25 17:11 | CR ---
Chest: Portable view of the chest was obtained. Comparison: Prior chest x-ray of 07/21/18. Improved atelectasis within the left base is seen from prior exam. No acute parenchymal change is seen within either lung. Heart size is normal. Tortuous thoracic aorta is noted. Orthopedic hardware is seen within the proximal right humerus. Bony structures are osteopenic. Impression: 1. Nothing acute is seen on portable chest x-ray. Chest is improved from previous exam as noted above. Diagnostic code #2
--- NOTE | 2018-07-25 17:18 | EDM.PDOC ---
ED HPI GENERAL MEDICAL PROBLEM - General Chief Complaint: Cardiovascular Problem Stated Complaint: BLOOD PRESSURE 194/113, AND HAVING CHEST PAIN Time Seen by Provider: 07/25/18 16:01 Source of Information: Reports: Patient History Limitations: Reports: No Limitations - History of Present Illness INITIAL COMMENTS - FREE TEXT/NARRATIVE: Patient is a 77-year-old female with history of smoking, COPD, CHF, PID, and hypertension. She presents to the ED complaining of persistent cough and resolved anterior chest discomfort. States she was recently discharged from the hospital where she was being treated for bronchitis. She recently completed azithromycin today. She continues to have poor sleep because of her cough. She' s been using albuterol neb treatments on a regular basis and states today with starting a neb treatment she developed pain to her chest and the sensation that something was stuck in her throat. She stated it went down into her belly and has gradually subsided since. It lasted for about 5-10 minutes. No radiation noted. Mildly nauseated with no diaphoresis. She is currently on a tapered dose of prednisone. Has been taking Mucinex on intermittent basis. She denies any cough syrup usage at this time. She was discharged from the hospital this past Wednesday. She was admitted to the hospital the Wednesday prior. She states that over the past few days she's been sleeping a little better. In addition they started the patient on metoprolol, Ceftin, [place], azithromycin, and Medrol Dosepak. Patient currently denies any PND, orthopnea, or increased swelling to her lower extremities. Denies any hemoptysis, fever, chills, nausea or vomiting , or history of PE/DVT. Generalized Pain Score (Numeric/FACES): 7 - Related Data Allergies Allergy/AdvReac Type Severity Reaction Status Date / Time Penicillins Allergy Cannot Verified 07/25/18 15:26 Remember Home Meds: Home Meds Omeprazole 20 mg PO BID 01/05/15 [History] Acetaminophen [Tylenol Arthritis] 650 mg PO Q8H PRN 07/20/18 [History] Albuterol Sulfate [Proventil Hfa] 2 puff INH Q4H PRN 07/20/18 [History] Albuterol Sulfate [Proventil Hfa] 2 puff INH TID 07/20/18 [History] Albuterol/Ipratropium [DuoNeb 3.0-0.5 MG/3 ML] 1 applic INH QID PRN 07/20/18 [ History] Seljy-K-Maarwtppprzvp [Beano] 1 tab PO ASDIRECTED PRN 07/20/18 [History] Calcium Lactate 1,500 mg PO DAILY 07/20/18 [History] Cholecalciferol (Vitamin D3) [Vitamin D3] 1,000 mg PO DAILY 07/20/18 [History] Cyclobenzaprine [Flexeril] 10 mg PO Q8H PRN 07/20/18 [History] Dextromethorphan/guaiFENesin [Mucinex DM ER 600-30 MG] 1 tab PO DAILY 07/20/18 [ History] Fluticasone/Salmeterol [Advair 100-50] 1 puff INH BID 07/20/18 [History] Furosemide [Lasix] 20 mg PO DAILY 07/20/18 [History] Glucosamine [Glucosamine Sulfate] 3 tab PO DAILY 07/20/18 [History] Multivitamin [One Daily Multivitamin] 1 tab PO DAILY 07/20/18 [History] Sennosides [Senna] 8.6 mg PO BEDTIME PRN 07/20/18 [History] Acetaminophen/HYDROcodone [[place] 325-5 MG] 1 tab PO Q4H PRN #10 tablet 07/22/18 [Rx] Azithromycin [Zithromax] 250 mg PO DAILY 3 Days #3 tablet 07/22/18 [Rx] Budesonide [Pulmicort] 0.5 mg NEB BIDRT neb 07/22/18 [Rx] Cefuroxime Axetil [Ceftin] 500 mg PO Q12HR 5 Days #10 tablet 07/22/18 [Rx] Metoprolol Succinate [Toprol XL 50mg] 50 mg PO DAILY 30 Days #30 tab.er [Rx] methylPREDNISolone [Medrol] 4 mg PO ASDIRECTED #1 dosepk 07/22/18 [Rx] Past Medical History HEENT History: Reports: Cataract, Sinusitis Cardiovascular History: Reports: Heart Failure, Hypertension, PVD, Stents, Other (See Below) Other Cardiovascular History: Rheumatic fever Hx / PVD with Aortic Bi-Fem per family Respiratory History: Reports: Bronchitis, Recurrent, COPD, Pneumonia, Recurrent Other Respiratory History: pneumonia in September 2016 Gastrointestinal History: Reports: Chronic Constipation, PUD Other Gastrointestinal History: STOMACH ULCERS Genitourinary History: Reports: None Other POL[employer]TAIN History: HYSTERECTOMY Musculoskeletal History: Reports: Arthritis, Back Pain, Chronic, Osteoporosis Neurological History: Reports: None Other Neuro History: patient states she felt she had like a "mini stroke" around the time her ; was never diagnosed Psychiatric History: Reports: Other (See Below) Other Psychiatric History: pt. feels that she is depressed Endocrine/Metabolic History: Reports: Osteoporosis Dermatologic History: Reports: None Other Dermatologic History: OPEN SORE ON RIGHT ARM - Infectious Disease History Infectious Disease History: Reports: Chicken Pox, Measles, Mumps, Rheumatic Fever, Rubella - Past Surgical History HEENT Surgical History: Reports: Cataract Surgery Cardiovascular Surgical History: Reports: Other (See Below) Other Cardiovascular Surgeries/Procedures: FEMORAL POPLITEAL BYPASS Respiratory Surgical History: Reports: None GI Surgical History: Reports: Appendectomy, Colonoscopy, EGD Female Surgical History: Reports: Hysterectomy Endocrine Surgical History: Reports: None Neurological Surgical History: Reports: None Musculoskeletal Surgical History: Reports: Other (See Below) Other Musculoskeletal Surgeries/Procedures:: shoulder surgeries Social & Family History - Family History Family Medical History: Noncontributory Endocrine/Metabolic: Reports: Hypothyroidism, Other (See Below) Other Endocrine/Metabolic Family History: pt. states her family has lots of thyroid problems - Tobacco Use Smoking Status *Q: Unknown Ever Smoked - Caffeine Use Caffeine Use: Reports: Coffee, Soda - Living Situation & Occupation Living situation: Reports: Occupation: Retired ED ROS GENERAL - Review of Systems Review Of Systems: ROS reveals no pertinent complaints other than HPI. ED EXAM, GENERAL - Physical Exam Exam: See Below Exam Limited By: No Limitations General Appearance: Alert, WD/WN, No Apparent Distress Ears: Hearing Grossly Normal Nose: Normal Inspection Throat/Mouth: Normal Voice, No Airway Compromise Head: Atraumatic, Normocephalic Neck: Normal Inspection, Supple, Non-Tender, Full Range of Motion. No: Lymphadenopathy (L), Lymphadenopathy (R) Respiratory/Chest: No Respiratory Distress, No Accessory Muscle Use, Chest Non- Tender, Wheezing (Expiratory) Cardiovascular: Normal Peripheral Pulses, Regular Rate, Rhythm, No Murmur ( Obvious) Peripheral Pulses: 1+: Posterior Tibial (L), Posterior Tibial (R), 2+: Radial (L ), Radial (R) GI/Abdominal: Normal Bowel Sounds, Soft, Non-Tender, No Organomegaly, No Distention Extremities: Normal Inspection, Normal Range of Motion, Non-Tender, No Pedal Edema Neurological: Alert, Oriented, CN II-XII Intact, Normal Cognition, Normal Gait, No Motor/Sensory Deficits Psychiatric: Normal Affect, Normal Mood Skin Exam: Warm, Dry, Intact, Normal Color Course - Vital Signs Last Recorded V/S: Last Vital Signs Temp 98.2 F 07/25/18 15:27 Pulse 75 07/25/18 20:30 Resp 16 07/25/18 20:30 BP 130/80 07/25/18 20:30 Pulse Ox 98 07/25/18 20:30 - Orders/Labs/Meds Labs: Laboratory Tests 07/25/18 07/25/18 Range/Units 15:53 15:53 WBC 16.05 H (3.98-10.04) K/mm3 RBC 4.65 (3.98-5.22) M/mm3 Hgb 14.7 (11.2-15.7) gm/L Hct 45.5 H (34.1-44.9) % MCV 97.8 H (79.4-94.8) fl MCH 31.6 (25.6-32.2) pg MCHC 32.3 (32.2-35.5) g/dl RDW Std Deviation 52.6 H (36.4-46.3) fL Plt Count 225 (182-369) K/mm3 MPV 10.0 (9.4-12.3) fl Neutrophils % (Manual) 81 H (40-60) % Band Neutrophils % 0 (0-10) % Lymphocytes % (Manual) 10 L (20-40) % Atypical Lymphs % 0 % Monocytes % (Manual) 9 (2-10) % Eosinophils % (Manual) 0 L (0.7-5.8) % Basophils % (Manual) 0 L (0.1-1.2) Platelet Estimate Adequate RBC Morph Comment Normal Sodium 136 (136-145) mEq/L Potassium 3.4 L (3.5-5.1) mEq/L Chloride 99 (98-107) mEq/L Carbon Dioxide 27 (21-32) mEq/L Anion Gap 13.4 (5-15) BUN 34 H (7-18) mg/dL Creatinine 1.2 H (0.55-1.02) mg/dL Est Cr Clr Drug Dosing 29.10 mL/min Estimated GFR (MDRD) 44 (>60) mL/min BUN/Creatinine Ratio 28.3 H (14-18) Glucose 115 (83-115) mg/dL Calcium 9.4 (8.5-10.1) mg/dL Total Bilirubin 0.6 (0.2-1.0) mg/dL AST 24 (15-37) U/L ALT 38 (14-59) U/L Alkaline Phosphatase 82 (46-116) U/L Troponin I < 0.017 (0.00-0.056) ng/mL Total Protein 7.0 (6.4-8.2) g/dl Albumin 3.3 L (3.4-5.0) g/dl Globulin 3.7 gm/dL Albumin/Globulin Ratio 0.9 L (1-2) Meds: Medications Discontinued Medications Generic Name Dose Route Start Last Admin Trade Name Freq PRN Reason Stop Dose Admin Albuterol 2.5 mg 07/25/18 16:25 07/25/18 16:31 Proventil Neb Soln NEB 07/25/18 16:26 2.5 mg ONETIME ONE Administration Sodium Chloride 500 mls @ 250 mls/hr 07/25/18 18:21 07/25/18 18:55 Normal Saline IV 07/25/18 20:20 250 mls/hr .BOLUS ONE Administration Sodium Chloride 100 mls @ 80 mls/hr 07/25/18 19:15 07/25/18 19:17 Normal Saline IV 80 mls/hr ASDIRECTED PAULA Administration Iopamidol 100 ml 07/25/18 19:10 Isovue-370 (76%) IV 07/25/18 19:11 ONETIME ONE Iopamidol 100 ml 07/25/18 19:14 07/25/18 19:23 Isovue-370 (76%) IV 07/25/18 19:15 100 ml ONETIME ONE Administration - Re-Assessments/Exams Free Text/Narrative Re-Assessment/Exam: Patient is a 77-year-old female with history of smoking, COPD, CHF, PID, and hypertension. She presents to the ED complaining of persistent cough and resolved anterior chest discomfort. On examination patient's vital signs are stable. She is not hypoxic with normal SPO2. She does have some pain to the chest with palpation along the sternal border. Otherwise she is asymptomatic. She was recently discharged from the hospital where she was being treated for bronchitis. She recently completed azithromycin today. She continues to have poor sleep because of her cough. She' s been using albuterol neb treatments on a regular basis and states today with starting a neb treatment she developed pain to her chest and the sensation that something was stuck in her throat. She stated it went down into her belly and has gradually subsided since. It lasted for about 5-10 minutes. No radiation noted. Mildly nauseated with no diaphoresis. She is currently on a tapered dose of prednisone. Has been taking Mucinex on intermittent basis. She denies any cough syrup usage at this time. She was discharged from the hospital this past Wednesday. She was admitted to the hospital the Wednesday prior. She states that over the past few days she's been sleeping a little better. In addition they started the patient on metoprolol, Ceftin, [place], azithromycin, and Medrol Dosepak. Patient currently denies any PND, orthopnea, or increased swelling to her lower extremities. Denies any hemoptysis, fever, chills, nausea or vomiting , or history of PE/DVT. Differential diagnosis includes: Chest wall pain, esophageal spasm, pneumothorax , pleurisy, NV, and PE. I suspect patient does not have a pneumothorax. Nor do I believe patient has pneumonia since she is not febrile and she is on antibiotic at this time. Most likely chest wall in origin since she's been coughing quite a bit with recent diagnosis of bronchitis. PE is of concern although patient does not have no history nor does she complain of any pain or swelling to her lower extremities. EKG indicated sinus rhythm at a rate of [address] changes noted. Patient does have some biatrial hypertrophy with diffuse early R-wave repolarization pattern. With findings of biatrial hypertrophy Dr. Delacruz recommends CTA of the chest to rule out PE. Chest x-ray indicated no acute findings as well. Final interpretation is pending. Albuterol neb treatment has been ordered. Labs reviewed: White blood cell count 16.05, hemoglobin 14.7, neutrophil percentage is 81, bands 0. Suspect WBCs elevated since patient is on prednisone. Potassium mildly low 3.4, creatinine 1.2, glucose normal, troponin normal, AG normal. Discussed results of the CT of the chest with the patient. She is a symptomatic at this time. I have offered to obtain additional troponin to trend. The patient has refused. She is wishing be discharged home. Discharge instructions as documented. Return precautions were discussed with the patient. She had no concerns and agreed with plan. Patient has a appt with PCP this coming Wednesday. Departure - Departure Time of Disposition: 20:14 Disposition: Home, Self-Care 01 Condition: Good Clinical Impression: Atypical chest pain Instructions: Nonspecific Chest Pain, [id number] Referrals: Charles Martinez MD [Primary Care Provider] - Forms: ED Department Discharge Additional Instructions: Please followup with PCP this coming Wednesday as scheduled. Please monitor for any new or worsening symptoms. If you develop any new or worsening symptoms please return to the E.D.
[2018-07-25] MEDS ORDERED: Sodium Chloride 0.9% 500 ML IV ONE (18:21)
[2018-07-25] MEDS ORDERED: Iopamidol 755 Mg/ML 200 ML Bottle IV ONE ×2 (19:10→19:14)
[2018-07-25] MEDS ORDERED: Sodium Chloride 0.9% 100 ML IV SCH (19:15)
--- NOTE | 2018-07-25 19:53 | CT ---
CT chest Technique: Multiple axial sections through the chest were obtained. Intravenous contrast was utilized. Study has been performed as a pulmonary angiogram protocol. Comparison: Previous CT chest performed as an pulmonary angiogram protocol dated 01/09/18. Findings: Pulmonary arteries are well opacified. No filling defects are seen to indicate pulmonary embolism. Mediastinum and hilar regions show no adenopathy or mass. Coronary artery calcification is seen. No pericardial thickening is seen. Small portion of the visualized upper abdominal structures appear within normal limits. Small linear filling defect is again seen within the left atrium which is stable and likely representing left atrial band as an incidental note. Linear scarring is seen within both lung bases. Slight nodular density is seen within a subpleural location within the right base most likely due to atelectasis as this finding is not seen on prior study. No acute parenchymal change is seen within either lung. Bone window settings were reviewed which shows scattered degenerative change within the thoracic spine. No acute osseous abnormality is appreciated. Impression: 1. No findings of pulmonary embolism. 2. Other incidental findings as noted above. No acute abnormality is appreciated on CT study of the chest. Diagnostic code #2
[2018-07-25 20:39] VITALS: BP 130/80
== END 2018-07-25 20:30 | disposition home or self-care (01) ==
LOC: JD.ED 15:07
DX: R07.89 Other chest pain (principal); I11.0 Hypertensive heart disease with heart failure; I50.9 Heart failure, unspecified; J44.9 Chronic obstructive pulmonary disease, unspecified; Z79.899 Other long term (current) drug therapy; Z88.0 Allergy status to penicillin
CPT/HCPCS: 36415; 71045; 71275; 80053; 84484; 85007; 85027; 93005; 94640; 96360; 99285; J7030; J7040; Q9967

== ENCOUNTER 2018-08-16 15:46 | Emergency (ER) | payer MEDICARE, MEDICAID ==
[2018-08-16 15:57] VITALS: BP 142/65
--- NOTE | 2018-08-16 16:52 | EDM.PDOC ---
ED HPI GENERAL MEDICAL PROBLEM - General Chief Complaint: Cardiovascular Problem Stated Complaint: LEGS SWOLLEN Time Seen by Provider: 08/16/18 15:59 Source of Information: Reports: Patient, Family History Limitations: Reports: No Limitations - History of Present Illness INITIAL COMMENTS - FREE TEXT/NARRATIVE: 77 yo F comes in today with daughter and son with complaints of shortness of breath and increased lower leg edema since last . She did see her PCP, Dr. Martinez, last and was told to take Lasix twice daily and take only 1/ 2 of her "heart pill". She states that the Lasix seemed to work until 2 days ago , until she wasn't able to "urinate well". In regards to her SOB, she was prescribed Albuterol nebulizer and Spiriva by Dr. Martinez, but only took it 1 time "because it made me dizzy". She almost fell due to the dizziness and therefore "quit everything" (her COPD medications) for about 1 week now. She says she used to only wear her Oxygen at night and is now needing 2L O2 throughout the day, with her O2 around the upper 80%'s to upper 90%'s. She is in the mid 90%'s to 100% while I'm in the room and does not seem SOB on exam. She denies F/C, cough, N/V/D, chest pain, dysuria/hematuria, or any other complaints. Family states they are trying to see a client technical specialist and are awaiting a phone call for an appointment. No other concerns at this time. PCP is Dr. Martinez. - Related Data Allergies Allergy/AdvReac Type Severity Reaction Status Date / Time Penicillins Allergy Cannot Verified 08/16/18 15:57 Remember Home Meds: Home Meds Omeprazole 20 mg PO BID 01/05/15 [History] Acetaminophen [Tylenol Arthritis] 650 mg PO Q8H PRN 07/20/18 [History] Albuterol Sulfate [Proventil Hfa] 2 puff INH Q4H PRN 07/20/18 [History] Albuterol/Ipratropium [DuoNeb 3.0-0.5 MG/3 ML] 1 applic INH QID PRN 07/20/18 [ History] Tbpvl-H-Xrjtcaokidnvt [Beano] 1 tab PO ASDIRECTED PRN 07/20/18 [History] Calcium Lactate 1,500 mg PO DAILY 07/20/18 [History] Cholecalciferol (Vitamin D3) [Vitamin D3] 1,000 mg PO DAILY 07/20/18 [History] Cyclobenzaprine [Flexeril] 10 mg PO Q8H PRN 07/20/18 [History] Dextromethorphan/guaiFENesin [Mucinex DM ER 600-30 MG] 1 tab PO BID 07/20/18 [ History] Furosemide [Lasix] 20 mg PO BID 07/20/18 [History] Glucosamine [Glucosamine Sulfate] 3 tab PO DAILY 07/20/18 [History] Multivitamin [One Daily Multivitamin] 1 tab PO DAILY 07/20/18 [History] Sennosides [Senna] 8.6 mg PO BEDTIME PRN 07/20/18 [History] Acetaminophen/HYDROcodone [Gaast[place] 325-5 MG] 1 tab PO Q4H PRN #10 tablet 07/22/18 [Rx] Metoprolol Succinate [Toprol XL 50mg] 50 mg PO DAILY 30 Days #30 tab.er [Rx] Tiotropium [place] [Spiriva Respimat] 08/16/18 [History] Tiotropium [Spiriva HandiHaler] 1 inh INH DAILY 08/16/18 [History] Past Medical History HEENT History: Reports: Cataract, Sinusitis Cardiovascular History: Reports: Heart Failure, Hypertension, PVD, Other (See Below) Other Cardiovascular History: Rheumatic fever Hx / PVD with Aortic Bi-Fem per family Respiratory History: Reports: Bronchitis, Recurrent, COPD, Pneumonia, Recurrent Other Respiratory History: pneumonia in September 2016 Gastrointestinal History: Reports: Chronic Constipation, PUD Other Gastrointestinal History: STOMACH ULCERS Genitourinary History: Reports: None 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 feels that she is depressed Endocrine/Metabolic History: Reports: Osteoporosis Dermatologic History: Reports: None Other Dermatologic History: OPEN SORE ON RIGHT ARM - Infectious Disease History Infectious Disease History: Reports: Chicken Pox, Measles, Mumps, Rheumatic Fever, Rubella - Past Surgical History HEENT Surgical History: Reports: Cataract Surgery Cardiovascular Surgical History: Reports: Other (See Below) Other Cardiovascular Surgeries/Procedures: FEMORAL POPLITEAL BYPASS Respiratory Surgical History: Reports: None GI Surgical History: Reports: Appendectomy, Colonoscopy, EGD Female Surgical History: Reports: Hysterectomy Endocrine Surgical History: Reports: None Neurological Surgical History: Reports: None Musculoskeletal Surgical History: Reports: Other (See Below) Other Musculoskeletal Surgeries/Procedures:: right shoulder surgeries Social & Family History - Family History Family Medical History: Noncontributory Endocrine/Metabolic: Reports: Hypothyroidism, Other (See Below) Other Endocrine/Metabolic Family History: pt. states her family has lots of thyroid problems - Tobacco Use Smoking Status *Q: Current Every Day Smoker Years of Tobacco use: 50 Packs/Tins Daily: 0.1 - Caffeine Use Caffeine Use: Reports: None - Recreational Drug Use Recreational Drug Use: No - Living Situation & Occupation Living situation: Reports: Occupation: Retired ED ROS GENERAL - Review of Systems Review Of Systems: See Below Constitutional: Reports: No Symptoms. Denies: Fever, Chills HEENT: Reports: No Symptoms Respiratory: Reports: Shortness of Breath. Denies: Cough Cardiovascular: Reports: Lightheadedness. Denies: Chest Pain Endocrine: Reports: No Symptoms GI/Abdominal: Reports: No Symptoms. Denies: Abdominal Pain, Diarrhea, Nausea, Vomiting : Reports: No Symptoms Musculoskeletal: Reports: No Symptoms Skin: Reports: No Symptoms Neurological: Reports: Dizziness, Difficulty Walking (uses walker at home). Denies: Headache, Numbness, Tingling Psychiatric: Reports: No Symptoms Hematologic/Lymphatic: Reports: No Symptoms ED EXAM, GENERAL - Physical Exam Exam: See Below Exam Limited By: No Limitations General Appearance: Alert, WD/WN, No Apparent Distress Eye Exam: Bilateral Eye: EOMI, Normal Inspection, PERRL Ears: Normal External Exam, Hearing Grossly Normal Head: Atraumatic, Normocephalic Neck: Normal Inspection, Supple, Non-Tender, Full Range of Motion Respiratory/Chest: No Respiratory Distress, Normal Breath Sounds, No Accessory Muscle Use, Chest Non-Tender, Rhonchi (throughout lung farrell), Wheezing ( throughout lung farrell) Cardiovascular: Other (muffled tones ). No: Normal Peripheral Pulses, No Edema (2-3+ pitting edema) Peripheral Pulses: 0: Posterior Tibial (L), Posterior Tibial (R), Dorsalis Pedis (L), Dorsalis Pedis (R) GI/Abdominal: Normal Bowel Sounds, Soft, Non-Tender, No Organomegaly, No Distention, No Abnormal Bruit, No Mass Back Exam: Normal Inspection Extremities: Normal Range of Motion, Non-Tender, Pedal Edema (2-3+ bilaterally) , Slow Capillary Refill, Redness. No: Increased Warmth Psychiatric: Normal Affect, Normal Mood Skin Exam: Warm, Dry, Intact, Erythema (bilateral LE). No: Increased Warmth Course - Vital Signs Last Recorded V/S: Last Vital Signs Temp 97.8 F 08/16/18 15:55 Pulse 80 08/16/18 15:55 Resp 20 08/16/18 15:55 BP 142/65 H 08/16/18 15:55 Pulse Ox 94 L 08/16/18 15:55 - Orders/Labs/Meds Orders: Active Orders 24 hr Category Date Time Status Bladder Scan [RC] ASDIRECTED Care 08/16/18 16:53 Active EKG Documentation Completion [RC] ASDIRECTED Care 08/16/18 16:56 Active CXR [Chest 2V] [CR] Stat Exams 08/16/18 16:52 Taken EKG 12 Lead [EK] Stat Ther 08/16/18 16:55 Ordered Labs: Laboratory Tests 08/16/18 08/16/18 08/16/18 Range/Units 16:58 16:58 16:58 WBC 7.40 (3.98-10.04) K/mm3 RBC 3.90 L (3.98-5.22) M/mm3 Hgb 12.4 (11.2-15.7) gm/L Hct 38.9 (34.1-44.9) % MCV 99.7 H (79.4-94.8) fl MCH 31.8 (25.6-32.2) pg MCHC 31.9 L (32.2-35.5) g/dl RDW Std Deviation 52.8 H (36.4-46.3) fL Plt Count 311 (182-369) K/mm3 MPV 9.5 (9.4-12.3) fl Neut % (Auto) 56.8 (34.0-71.1) % Lymph % (Auto) 21.2 (19.3-51.7) % [place] % (Auto) 12.4 (4.7-12.5) % Eos % (Auto) 8.0 H (0.7-5.8) Baso % (Auto) 0.5 (0.1-1.2) % Neut # (Auto) 4.20 (1.56-6.13) K/mm3 Lymph # (Auto) 1.57 (1.18-3.74) K/mm3 [place] # (Auto) 0.92 H (0.24-0.36) K/mm3 Eos # (Auto) 0.59 H (0.04-0.36) K/mm3 Baso # (Auto) 0.04 (0.01-0.08) K/mm3 Sodium 140 (136-145) mEq/L Potassium 3.2 L (3.5-5.1) mEq/L Chloride 102 (98-107) mEq/L Carbon Dioxide 28 (21-32) mEq/L Anion Gap 13.2 (5-15) BUN 18 (7-18) mg/dL Creatinine 1.4 H (0.55-1.02) mg/dL Est Cr Clr Drug Dosing 24.94 mL/min Estimated GFR (MDRD) 37 (>60) mL/min BUN/Creatinine Ratio 12.9 L (14-18) Glucose 106 (83-115) mg/dL Calcium 9.4 (8.5-10.1) mg/dL Total Bilirubin 0.3 (0.2-1.0) mg/dL AST 25 (15-37) U/L ALT 25 (14-59) U/L Alkaline Phosphatase 113 (46-116) U/L Troponin I < 0.017 (0.00-0.056) ng/mL C-Reactive Protein 1.6 H* (<1.0) mg/dL NT-Pro-B Natriuret Pep 817 H (0-450) pg/mL Total Protein 6.7 (6.4-8.2) g/dl Albumin 3.0 L (3.4-5.0) g/dl Globulin 3.7 gm/dL Albumin/Globulin Ratio 0.8 L (1-2) Meds: Medications Discontinued Medications Generic Name Dose Route Start Last Admin Trade Name Freq PRN Reason Stop Dose Admin Potassium Chloride 40 meq 08/16/18 19:32 Klor-Con M20 PO 08/16/18 19:33 ONETIME ONE - Re-Assessments/Exams Free Text/Narrative Re-Assessment/Exam: 08/16/18 16:53 I ordered CBC, CMP, CRP, BNP, Troponin, EKG, Chest Xray Bladder scan ordered as well as she states she's not urinating well 08/16/18 17:30 CBC shows RBC 3.9, K 3.2, Cr 1.4, GFR 37 CMP shows Albumin 3; mild hypoalbuminemia CRP 1.6 BNP 817 Troponin <0.017 Bladder scan shows 45mL 08/16/18 19:[address] Covington and myself, nothing acute seen. CXR reviewed by Dr. Covington and myself. Nothing acute seen. 08/16/18 19:18 At this time, it seems likely that there are 2 separate issues going on: COPD exacerbation d/t not taking her prescribed medications, and third-spacing in the lower extremities. Her workup is not significant for CHF exacerbation. Her physical exam showed her lungs are dry, her CXR did not show increased pulmonary congestion, and her bladder scan showed only 45mL urine. I explained to the patient and family that she will need to wear compression stockings/BORIS wrap to help get the fluid out of the legs and to elevate the legs. As for her breathing, she will need to restart her prescribed medications. They should also follow up with Dr. Martinez within the week. They state they understand. 08/16/18 19:33 Tried to replace potassium, but patient left before the dose was given. Departure - Departure Time of Disposition: 19:18 Disposition: Home, Self-Care 01 Condition: Fair Clinical Impression: COPD exacerbation, Pedal edema Instructions: Chronic Obstructive Pulmonary Disease Exacerbation, [id number] , Edema, [id number], Peripheral Edema Referrals: Charles Martinez MD [Primary Care Provider] - Forms: ED Department Discharge Additional Instructions: You were seen in the ED today for increased shortness of breath and increasing swelling in the legs. After your workup and history there was no infection found and it seems likely that you are suffering from COPD exacerbation from not taking your albuterol nebulizer and Spiriva recently prescribed to you by Dr. Martinez. It is recommended you restart these medications. As for your swelling in the legs, your workup was actually not significant for CHF exacerbation as your bladder scan, CXR and lung sounds on exam show that you are not retaining fluid anywhere else. Therefore, this is likely fluid getting "stuck" in your legs and will need help getting out by wearing compression stockings/BORIS wrap if doesn't fit, and elevation of the legs. Recommend following up with your primary care provider within the week. Please return to ED if new or worsening symptoms. - My Orders Last 24 Hours: My Active Orders 08/16/18 16:52 CXR [Chest 2V] [CR] Stat 08/16/18 16:53 Bladder Scan [RC] ASDIRECTED 08/16/18 16:55 EKG 12 Lead [EK] Stat 08/16/18 16:56 EKG Documentation Completion [RC] ASDIRECTED - Assessment/Plan Last 24 Hours: My Active Orders 08/16/18 16:52 CXR [Chest 2V] [CR] Stat 08/16/18 16:53 Bladder Scan [RC] ASDIRECTED 08/16/18 16:55 EKG 12 Lead [EK] Stat 08/16/18 16:56 EKG Documentation Completion [RC] ASDIRECTED
[2018-08-16] MEDS ORDERED: Potassium Chloride 20 MEQ Tab.ER PO ONE (19:32)
--- NOTE | 2018-08-17 07:00 | CR ---
Chest: Two views of the chest were obtained. Comparison: Prior CT chest of 07/25/18 and chest x-ray of 07/25/18. Heart size and mediastinum are normal. Lungs are clear with no acute parenchymal change. Plate and screws are partially visualized within the proximal right humerus. Bony structures are osteopenic. Mild degenerative change is scattered within the spine. Impression: 1. Incidental findings. Nothing acute is seen. Diagnostic code #2
== END 2018-08-16 19:34 | disposition home or self-care (01) ==
LOC: JD.ED 15:46
DX: J44.1 Chronic obstructive pulmonary disease with (acute) exacerbation (principal); R60.0 Localized edema; I11.0 Hypertensive heart disease with heart failure; I50.9 Heart failure, unspecified; F17.210 Nicotine dependence, cigarettes, uncomplicated; Z88.0 Allergy status to penicillin; Z79.899 Other long term (current) drug therapy
CPT/HCPCS: 36415; 51798; 71046; 71046-26; 80053; 83880; 84484; 85025; 86140; 93005; 93010; 99284; 99285-25

== ENCOUNTER 2018-09-24 01:46 | Emergency (ER) | payer MEDICARE ==
[2018-09-24 01:52] VITALS: BP 121/89
--- NOTE | 2018-09-24 01:55 | EDM.PDOC ---
ED HPI GENERAL MEDICAL PROBLEM - General Chief Complaint: General Stated Complaint: [facility] Time Seen by Provider: 09/24/18 01:54 - History of Present Illness INITIAL COMMENTS - FREE TEXT/NARRATIVE: 77-year-old female presents emergency room with right shoulder and rib pain. Patient fell 2 nights ago and yesterday developed some pain in his pain is progressively getting worse the pain seems to be worse on the anterior lateral aspect of her right ribs and in her shoulder she has difficulty trying to move her shoulder. Patient denies any other injury associated with this fall she did not hit her head no loss of consciousness she has otherwise been doing okay no signs of illness or sickness. Right Thoracic Pain Score (Numeric/FACES): 10 - Related Data Allergies Allergy/AdvReac Type Severity Reaction Status Date / Time Penicillins Allergy Cannot Verified 08/16/18 15:57 Remember Home Meds: Home Meds Omeprazole 20 mg PO BID 01/05/15 [History] Albuterol Sulfate [Proventil Hfa] 2 puff INH Q4H PRN 07/20/18 [History] Bmsfm-X-Xnzpixldpwlsl [Beano] 1 tab PO ASDIRECTED PRN 07/20/18 [History] Calcium Lactate 1,500 mg PO DAILY 07/20/18 [History] Cholecalciferol (Vitamin D3) [Vitamin D3] 1,000 mg PO DAILY 07/20/18 [History] Cyclobenzaprine [Flexeril] 10 mg PO Q8H PRN 07/20/18 [History] Dextromethorphan/guaiFENesin [Mucinex DM ER 600-30 MG] 1 tab PO BID 07/20/18 [ History] Furosemide [Lasix] 20 mg PO DAILY 07/20/18 [History] Sennosides [Senna] 8.6 mg PO BEDTIME PRN 07/20/18 [History] Acetaminophen/HYDROcodone [[place] 325-5 MG] 1 tab PO Q8H #15 tablet 09/24/18 [Rx] Fluticasone/Salmeterol [Advair 100-50] 1 puff INH BID 09/24/18 [History] Metoprolol Succinate [Toprol XL 50mg] 25 mg PO DAILY 09/24/18 [History] Past Medical History HEENT History: Reports: Cataract, Sinusitis Cardiovascular History: Reports: Heart Failure, Hypertension, PVD, Other (See Below) Other Cardiovascular History: Rheumatic fever Hx / PVD with Aortic Bi-Fem per family Respiratory History: Reports: Bronchitis, Recurrent, COPD, Pneumonia, Recurrent Other Respiratory History: pneumonia in September 2016 Gastrointestinal History: Reports: Chronic Constipation, PUD Other Gastrointestinal History: STOMACH ULCERS Genitourinary History: Reports: None Other POLYSOMNOGRAPHIC TECH History: HYSTERECTOMY Musculoskeletal History: Reports: Arthritis, Back Pain, Chronic, Osteoporosis Neurological History: Reports: None Other Neuro History: patient states she felt she had like a "mini stroke" around the time her ; was never diagnosed Psychiatric History: Reports: Other (See Below) Other Psychiatric History: pt. feels that she is depressed Endocrine/Metabolic History: Reports: Osteoporosis Dermatologic History: Reports: None Other Dermatologic History: OPEN SORE ON RIGHT ARM - Infectious Disease History Infectious Disease History: Reports: Chicken Pox, Measles, Mumps, Rheumatic Fever, Rubella - Past Surgical History HEENT Surgical History: Reports: Cataract Surgery Cardiovascular Surgical History: Reports: Other (See Below) Other Cardiovascular Surgeries/Procedures: FEMORAL POPLITEAL BYPASS Respiratory Surgical History: Reports: None GI Surgical History: Reports: Appendectomy, Colonoscopy, EGD Female Surgical History: Reports: Hysterectomy Endocrine Surgical History: Reports: None Neurological Surgical History: Reports: None Musculoskeletal Surgical History: Reports: Other (See Below) Other Musculoskeletal Surgeries/Procedures:: right shoulder surgeries Social & Family History - Family History Family Medical History: Noncontributory Endocrine/Metabolic: Reports: Hypothyroidism, Other (See Below) Other Endocrine/Metabolic Family History: pt. states her family has lots of thyroid problems - Caffeine Use Caffeine Use: Reports: None - Living Situation & Occupation Living situation: Reports: Occupation: Retired ED ROS GENERAL - Review of Systems Review Of Systems: See Below Constitutional: Reports: No Symptoms HEENT: Reports: No Symptoms Respiratory: Reports: No Symptoms Cardiovascular: Reports: No Symptoms, Other (She is having some right-sided chest wall pain) Endocrine: Reports: No Symptoms GI/Abdominal: Reports: No Symptoms : Reports: No Symptoms Neurological: Reports: No Symptoms ED EXAM, GENERAL - Physical Exam Exam: See Below Exam Limited By: No Limitations General Appearance: Alert, No Apparent Distress Head: Atraumatic, Normocephalic Neck: Normal Inspection, Supple, Non-Tender, Full Range of Motion Respiratory/Chest: No Respiratory Distress, Lungs Clear, Normal Breath Sounds, No Accessory Muscle Use, Chest Non-Tender, Other (Chest wall palpation is tender the right lower ribs moving anteriorly) Cardiovascular: Normal Peripheral Pulses, Regular Rate, Rhythm, No Edema, No Gallop, No JVD, No Murmur, No Rub GI/Abdominal: Normal Bowel Sounds, Soft, Non-Tender (Female) Exam: Normal External Exam Back Exam: Normal Inspection. No: CVA Tenderness (L), CVA Tenderness (R) Extremities: Normal Inspection, Pedal Edema (Trace) Neurological: Alert, Oriented, Normal Cognition Course - Vital Signs Last Recorded V/S: Last Vital Signs Temp 36.2 C 09/24/18 01:48 Pulse 66 09/24/18 01:48 Resp 18 09/24/18 01:48 BP 121/89 09/24/18 01:48 Pulse Ox 98 09/24/18 01:48 - Orders/Labs/Meds Orders: Active Orders 24 hr Category Date Time Status Ribs 2V w Chest Rt [CR] Stat Exams 09/24/18 02:22 Taken Meds: Medications Discontinued Medications Generic Name Dose Route Start Last Admin Trade Name [place] PRN Reason Stop Dose Admin Hydrocodone Bitart/Acetaminophen 1 tab 09/24/18 04:03 09/24/18 04:07 [place] 325-5 Mg PO 09/24/18 04:04 1 tab ONETIME ONE Administration Fentanyl 50 mcg 09/24/18 02:21 09/24/18 02:26 Sublimaze IVPUSH 09/24/18 02:22 50 mcg ONETIME ONE Administration - Re-Assessments/Exams Free Text/Narrative Re-Assessment/Exam: 09/24/18 06:07 X-ray examination of the shoulder ribs and AP chest are negative for any acute changes. The patient is doing better with E[place] we will discharge home continue the [place] one every 6-8 hours as needed #15 Departure - Departure Time of Disposition: 06:08 Disposition: Home, Self-Care 01 Clinical Impression: Chest wall contusion - Discharge Information Prescriptions: Acetaminophen/HYDROcodone [[place] 325-5 MG] 1 tab PO Q8H #15 tablet Forms: ED Department Discharge Additional Instructions: Return to the emergency room with any questions problems worsening symptoms. You've been given a few pain pills take one every 6-8 hours as needed. Do not take your cyclobenzaprine, or Flexeril while taking this medication. Use a good stool softener as the hydrocodone can cause constipation. Take 3 or 4 maximal breaths every couple hours while awake. - My Orders Last 24 Hours: My Active Orders 09/24/18 02:22 Ribs 2V w Chest Rt [CR] Stat - Assessment/Plan Last 24 Hours: My Active Orders 09/24/18 02:22 Ribs 2V w Chest Rt [CR] Stat
[2018-09-24] MEDS ORDERED: fentaNYL 100 MCG/2 ML SDV IVPUSH ONE (02:21)
[2018-09-24] MEDS ORDERED: Acetaminophen/HYDROcodone 325-5 MG Tab PO ONE (04:03)
--- NOTE | 2018-09-26 06:35 | CR ---
Chest and right ribs: Frontal view of the chest was obtained as well as three views of the right ribs. One view of the right ribs shows significant motion artifact. Comparison: Previous chest x-ray of 08/16/18. Heart size is normal. Slight basilar scarring and atelectasis is seen. Mild tortuosity of the thoracic aorta is seen. Plate and screws affix an old healed proximal humeral fracture. Bony structures are osteopenic. No discrete right-sided rib abnormality is appreciated. Impression: 1. Mild atelectasis and scarring within both lung bases. 2. Nothing acute is definitely seen. Nondisplaced rib fracture could easily be missed. Diagnostic code #2 I agree with preliminary report from [facility], finalized on 09/24/18, 5:44 AM Central Time
== END 2018-09-24 06:30 | disposition home or self-care (01) ==
LOC: JD.ED 01:46
DX: S20.211A Contusion of right front wall of thorax, initial encounter (principal); I50.9 Heart failure, unspecified; M19.90 Unspecified osteoarthritis, unspecified site; Z90.710 Acquired absence of both cervix and uterus; Z90.49 Acquired absence of other specified parts of digestive tract; Z88.0 Allergy status to penicillin; W19.XXXA Unspecified fall, initial encounter
CPT/HCPCS: 71101; 96374; 99283; A9270; J3010; 99284

== ENCOUNTER 2018-11-14 16:58 | Emergency (ER) | payer MEDICAID, MEDICARE ==
[2018-11-14 17:13] VITALS: BP 120/75
[2018-11-14] MEDS ORDERED: HYDROmorphone 0.5 MG/0.5 ML Syringe IVPUSH ONE ×2 (17:37→19:19)
[2018-11-14] MEDS ORDERED: Sodium Chloride 0.9% 1,000 ML IV SCH (17:45)
--- NOTE | 2018-11-14 17:54 | EDM.PDOC ---
ED HPI GENERAL MEDICAL PROBLEM - General Chief Complaint: Lower Extremity Injury/Pain Stated Complaint: [facility] Time Seen by Provider: 11/14/18 17:37 Source of Information: Reports: Patient History Limitations: Reports: No Limitations - History of Present Illness INITIAL COMMENTS - FREE TEXT/NARRATIVE: Patient is a 78-year-old female with a history of peripheral vascular disease with aortic bifemoral bypass, heart failure, hypertension, COPD, GERD, osteoporosis, chronic back pain, and depression who presents to the ED via EMS after falling injuring her right hip. Patient states while turning around she lost her balance and fell backwards hitting her head and injuring her right hip. She denies any loss consciousness. She is also complains some midline cervical neck pain which she states may be chronic with her history of degenerative changes. It is unclear what is causing the patient to lose her balance/fall. She has fallen 5 times over the last month and a half which is unusual for the patient. She denies any dizziness, chest pain, shortness of breath, palpitations, when this occurs. At times she just falls with no warning. She denies any focal neurological deficits prior to fall and after. She is on no blood thinners. Patient denies any chest pain, shortness of breath, nausea vomiting, vision changes, headache, numbness or tingling to extremities, abdominal pain, dysuria , hematuria, dark tarry stools, bloody stools, and pain to the right and left upper extremities, and also left lower extremity. Treatments DIRECTOR ADVANCED: Reports: IV/IO, Other Medication(s) Left Hip Pain Score (Numeric/FACES): 10 - Related Data Allergies Allergy/AdvReac Type Severity Reaction Status Date / Time Penicillins Allergy Cannot Verified 08/16/18 15:57 Remember Home Meds: Home Meds Omeprazole 20 mg PO BID 01/05/15 [History] Albuterol Sulfate [Proventil Hfa] 2 puff INH Q4H PRN 07/20/18 [History] Abtal-W-Emcjxkwzeypws [Beano] 1 tab PO ASDIRECTED PRN 07/20/18 [History] Calcium Lactate 1,500 mg PO DAILY 07/20/18 [History] Cholecalciferol (Vitamin D3) [Vitamin D3] 1,000 mg PO DAILY 07/20/18 [History] Cyclobenzaprine [Flexeril] 10 mg PO Q8H PRN 07/20/18 [History] Dextromethorphan/guaiFENesin [Mucinex DM ER 600-30 MG] 1 tab PO BID 07/20/18 [ History] Furosemide [Lasix] 20 mg PO DAILY 07/20/18 [History] Sennosides [Senna] 8.6 mg PO BEDTIME PRN 07/20/18 [History] Acetaminophen/HYDROcodone [[place] 325-5 MG] 1 tab PO Q8H #15 tablet 09/24/18 [Rx] Fluticasone/Salmeterol [Advair 100-50] 1 puff INH BID 09/24/18 [History] Metoprolol Succinate [Toprol XL 50mg] 25 mg PO DAILY 09/24/18 [History] Past Medical History HEENT History: Reports: Cataract, Sinusitis Cardiovascular History: Reports: Heart Failure, Hypertension, PVD, Other (See Below) Other Cardiovascular History: Rheumatic fever Hx / PVD with Aortic Bi-Fem per family Respiratory History: Reports: Bronchitis, Recurrent, COPD, Pneumonia, Recurrent Other Respiratory History: pneumonia in September 2016 Gastrointestinal History: Reports: Chronic Constipation, PUD Other Gastrointestinal History: STOMACH ULCERS Genitourinary History: Reports: None Other CARDIAC NURSE History: HYSTERECTOMY Musculoskeletal History: Reports: Arthritis, Back Pain, Chronic, Osteoporosis Neurological History: Reports: None Other Neuro History: patient states she felt she had like a "mini stroke" around the time her ; was never diagnosed Psychiatric History: Reports: Other (See Below) Other Psychiatric History: pt. feels that she is depressed Endocrine/Metabolic History: Reports: Osteoporosis Dermatologic History: Reports: None Other Dermatologic History: OPEN SORE ON RIGHT ARM - Infectious Disease History Infectious Disease History: Reports: Chicken Pox, Measles, Mumps, Rheumatic Fever, Rubella - Past Surgical History HEENT Surgical History: Reports: Cataract Surgery Cardiovascular Surgical History: Reports: Other (See Below) Other Cardiovascular Surgeries/Procedures: FEMORAL POPLITEAL BYPASS Respiratory Surgical History: Reports: None GI Surgical History: Reports: Appendectomy, Colonoscopy, EGD Female Surgical History: Reports: Hysterectomy Endocrine Surgical History: Reports: None Neurological Surgical History: Reports: None Musculoskeletal Surgical History: Reports: Other (See Below) Other Musculoskeletal Surgeries/Procedures:: right shoulder surgeries Social & Family History - Family History Family Medical History: Noncontributory Endocrine/Metabolic: Reports: Hypothyroidism, Other (See Below) Other Endocrine/Metabolic Family History: pt. states her family has lots of thyroid problems - Tobacco Use Smoking Status *Q: Current Every Day Smoker Years of Tobacco use: 50 Packs/Tins Daily: 0.2 - Caffeine Use Caffeine Use: Reports: Coffee - Living Situation & Occupation Living situation: Reports: Occupation: Retired Review of Systems - Review of Systems Review Of Systems: ROS reveals no pertinent complaints other than HPI. ED EXAM, GENERAL - Physical Exam Exam: See Below Exam Limited By: No Limitations General Appearance: Alert, WD/WN, Moderate Distress Eye Exam: Bilateral Eye: EOMI, Nystagmus (none noted), PERRL, Vision Changes ( none noted) Ears: Normal External Exam, Hearing Grossly Normal Nose: Normal Inspection, Normal Mucosa, No Blood Throat/Mouth: Normal Inspection, Normal Oropharynx, Normal Voice, No Airway Compromise Head: Other (Tenderness to the posterior scalp with palpation. No subcutaneous swelling, bruising, open wounds, and/or bony abnormalities noted. ) Neck: Normal Inspection, Supple, Full Range of Motion, Tender Midline Respiratory/Chest: No Respiratory Distress, Lungs Clear, Normal Breath Sounds, No Accessory Muscle Use, Chest Non-Tender Cardiovascular: Normal Peripheral Pulses, Regular Rate, Rhythm, Systolic Murmur Peripheral Pulses: 1+: Popliteal (R), 2+: Radial (L), Radial (R) GI/Abdominal: Normal Bowel Sounds, Soft, Non-Tender, No Organomegaly, No Distention Back Exam: Normal Inspection Extremities: Other (On examination of the right lower extremity: Shortened and externally rotated. Increasing pain with palpation of the right hip, femur, right knee, and tib-fib. No sensory changes noted. Able wiggle her toes. Peripheral pulses are intact although week. She denies any pain with palpation the left hip, left upper and right upper extremity, left lower extremity.) Neurological: Alert, Oriented, CN II-XII Intact, No Motor/Sensory Deficits Psychiatric: Normal Affect, Normal Mood Skin Exam: Warm, Dry, Intact, Normal Color Course - Vital Signs Last Recorded V/S: Last Vital Signs Temp 97.2 F 11/14/18 17:09 Pulse 81 11/14/18 17:09 Resp 16 11/14/18 17:09 BP 120/75 11/14/18 17:09 Pulse Ox 92 L 11/14/18 17:09 - Orders/Labs/Meds Orders: Active Orders 24 hr Category Date Time Status EKG Documentation Completion [RC] STAT Care 11/14/18 17:48 Active Oxygen Therapy Adult [Oxygen Therapy, ED] [RC] Care 11/14/18 19:03 Active ASDIRECTED Femur Min 2V Rt [CR] Stat Exams 11/14/18 19:28 Taken Hip Min 2V or 3V w Pelvis Rt [CR] Stat Exams 11/14/18 17:46 Taken Knee 3V Lt [CR] Stat Exams 11/14/18 17:47 Taken Tibia Fibula Rt [CR] Stat Exams 11/14/18 17:47 Taken URINALYSIS W/MICROSCOPIC [UA W/MICROSCOPIC] [URIN] Stat Lab 11/14/18 20:22 Received Sodium Chloride 0.9% [Normal Saline] 1,000 ml Med 11/14/18 17:45 Active IV ASDIRECTED Medication Orders Sodium Chloride (Normal Saline) 1,000 mls @ 75 mls/hr IV ASDIRECTED PAULA Last Admin: 11/14/18 17:45 Dose: 75 mls/hr Labs: Laboratory Tests 11/14/18 11/14/18 11/14/18 Range/Units 18:00 18:00 18:00 WBC 15.17 H (3.98-10.04) K/mm3 RBC 3.97 L (3.98-5.22) M/mm3 Hgb 12.4 (11.2-15.7) gm/L Hct 38.8 (34.1-44.9) % MCV 97.7 H (79.4-94.8) fl MCH 31.2 (25.6-32.2) pg MCHC 32.0 L (32.2-35.5) g/dl RDW Std Deviation 51.4 H (36.4-46.3) fL Plt Count 217 D (182-369) K/mm3 MPV 9.8 (9.4-12.3) fl Neutrophils % (Manual) 87 H (40-60) % Band Neutrophils % 0 (0-10) % Lymphocytes % (Manual) 8 L (20-40) % Atypical Lymphs % 0 % Monocytes % (Manual) 4 (2-10) % Eosinophils % (Manual) 1 (0.7-5.8) % Basophils % (Manual) 0 L (0.1-1.2) Platelet Estimate Adequate Plt Morphology Comment Normal Macrocytosis Rare Ovalocytes Rare Acanthocytes (Spur) Rare RBC Morph Comment Not Reportable PT 10.0 (9.5-12.1) SECONDS INR < 0.93 APTT 25 (24-31) SECONDS Sodium 138 (136-145) mEq/L Potassium 3.2 L (3.5-5.1) mEq/L Chloride 101 (98-107) mEq/L Carbon Dioxide 29 (21-32) mEq/L Anion Gap 11.2 (5-15) BUN 27 H (7-18) mg/dL Creatinine 1.5 H (0.55-1.02) mg/dL Est Cr Clr Drug Dosing 22.92 mL/min Estimated GFR (MDRD) 34 (>60) mL/min BUN/Creatinine Ratio 18.0 (14-18) Glucose 123 H (83-115) mg/dL Calcium 8.9 (8.5-10.1) mg/dL Magnesium (1.8-2.4) mg/dl Total Bilirubin 0.3 (0.2-1.0) mg/dL AST 23 (15-37) U/L ALT 32 (14-59) U/L Alkaline Phosphatase 117 H (46-116) U/L Troponin I (0.00-0.056) ng/mL Total Protein 6.6 (6.4-8.2) g/dl Albumin 3.1 L (3.4-5.0) g/dl Globulin 3.5 gm/dL Albumin/Globulin Ratio 0.9 L (1-2) 11/14/18 11/14/18 Range/Units 18:00 18:00 WBC (3.98-10.04) K/mm3 RBC (3.98-5.22) M/mm3 Hgb (11.2-15.7) gm/L Hct (34.1-44.9) % MCV (79.4-94.8) fl MCH (25.6-32.2) pg MCHC (32.2-35.5) g/dl RDW Std Deviation (36.4-46.3) fL Plt Count (182-369) K/mm3 MPV (9.4-12.3) fl Neutrophils % (Manual) (40-60) % Band Neutrophils % (0-10) % Lymphocytes % (Manual) (20-40) % Atypical Lymphs % % Monocytes % (Manual) (2-10) % Eosinophils % (Manual) (0.7-5.8) % Basophils % (Manual) (0.1-1.2) Platelet Estimate Plt Morphology Comment Macrocytosis Ovalocytes Acanthocytes (Spur) RBC Morph Comment PT (9.5-12.1) SECONDS INR APTT (24-31) SECONDS Sodium (136-145) mEq/L Potassium (3.5-5.1) mEq/L Chloride (98-107) mEq/L Carbon Dioxide (21-32) mEq/L Anion Gap (5-15) BUN (7-18) mg/dL Creatinine (0.55-1.02) mg/dL Est Cr Clr Drug Dosing mL/min Estimated GFR (MDRD) (>60) mL/min BUN/Creatinine Ratio (14-18) Glucose (83-115) mg/dL Calcium (8.5-10.1) mg/dL Magnesium 1.5 L (1.8-2.4) mg/dl Total Bilirubin (0.2-1.0) mg/dL AST (15-37) U/L ALT (14-59) U/L Alkaline Phosphatase (46-116) U/L Troponin I < 0.017 (0.00-0.056) ng/mL Total Protein (6.4-8.2) g/dl Albumin (3.4-5.0) g/dl Globulin gm/dL Albumin/Globulin Ratio (1-2) Meds: Medications Generic Name Dose Route Start Last Admin Trade Name Freq PRN Reason Stop Dose Admin Sodium Chloride 1,000 mls @ 75 mls/hr 11/14/18 17:45 11/14/18 17:45 Normal Saline IV 75 mls/hr ASDIRECTED PAULA Administration Discontinued Medications Generic Name Dose Route Start Last Admin Trade Name Freq PRN Reason Stop Dose Admin Hydromorphone HCl 0.25 mg 11/14/18 17:37 11/14/18 17:44 Dilaudid IVPUSH 11/14/18 17:38 0.25 mg ONETIME ONE Administration Hydromorphone HCl 0.5 mg 11/14/18 19:19 11/14/18 19:23 Dilaudid IVPUSH 11/14/18 19:20 0.5 mg ONETIME ONE Administration - Re-Assessments/Exams Free Text/Narrative Re-Assessment/Exam: On exam patient complains of posterior head pain secondary to fall, midline cervical neck pain, right-sided hip pain with shortening and external rotation. She also complains of some pain to the right knee and tib-fib. Vital signs are stable. Blood pressure 120/75, heart rate 81, temperature is 97.2, rest rate 16 , O2 sats 92% on room air. Patient reports falling 5 times over the last month and a half which is unusual for the patient. Today after taking oral medications she turned and when doing so lost her balance and fell backwards. She hit her head on the floor. She has some slight discomfort to the posterior aspect of her head. She denies any loss of consciousness. She also has pain midline cervical spine. She has a history of severe degenerative changes to the neck. She has no numbness or tingling to extremities. She complains of severe right-sided hip pain with shortening and external rotation of the lower extremity. IV established by EMS. Ordered Dilaudid 0.25 mg IVP which was verbally changed to 0.5 mg IVP AND staff was present during examination. Labs to obtain will include: CBC, chem 14, coag studies, troponin, urinalysis, cervical spine CT, head CT, x-ray of the right hip with pelvis, x-ray of the knee, and x-ray of the right tib-fib. Per nursing staff patient required O2 via NC since O2 sats were 88% after administration of dilaudid. Labs reviewed: WBC 15.17, HGB 12.4, Platelet 217, N% 87, No left shift. NA 138, K 3.2L, Cr 1.5, GFR 34, Glucose 123, Mag 1.5L, Troponin <0.017. EKG: Sinus rhythm rate of 76 with normal LA interval of 171. QTC 471. No acute ST changes noted. 1921 Patient has just returned from x-ray and CT complaining of pain. Ordered dilaudid 0.5mg IVP. CT head without contrast impression: Mild senescent change. No acute intracranial abnormality is seen. CT cervical spine impression: Degenerative changes as noted above. Nothing acute is appreciated on CT study of the cervical spine. 1927 X-ray of the right hip and pelvis reviewed with Dr. Delacruz indicating a fracture through the femoral head right side. No obvious bony abnormalities to the right knee and tib-fib. X-ray of the left knee did not reveal any acute bony abnormalities as well. I have asked for the right femur to be x-rayed as well. Right femur x-ray: no acute bony abnormalities. Reviewed with Dr. Delacruz. 11/14/18 20:[address] Weaver Orthopedic Surgeon. He will perform surgery tomorrow at noon if can be medically cleared. I have discussed patient with Dr. Go substation engineer hospitalists. Requested transfer of patient to [facility] since patient will most likely require stay longer then 96hrs. 2049 Called [facility]. Dr. Cardoza substation engineer orthopedic surgeon requested patient go to the E.D. I have discussed patient with Dr. Rayo. He has accepted the patient. Ambulance has been paged and transfer paperwork completed. Departure - Departure Time of Disposition: 20:45 Disposition: DC/Tfer to [facility] 02 Condition: Good Clinical Impression: Fracture of neck of femur, hip, Hypokalemia, Hypomagnesemia - Discharge Information Referrals: PCP,None [Primary Care Provider] - Forms: ED Department Discharge - My Orders Last 24 Hours: My Active Orders 11/14/18 17:45 Sodium Chloride 0.9% [Normal Saline] 1,000 ml IV ASDIRECTED 11/14/18 17:46 Hip Min 2V or 3V w Pelvis Rt [CR] Stat 11/14/18 17:47 Knee 3V Lt [CR] Stat Tibia Fibula Rt [CR] Stat 11/14/18 17:48 EKG Documentation Completion [RC] STAT 11/14/18 19:03 Oxygen Therapy Adult [Oxygen Therapy, ED] [RC] ASDIRECTED 11/14/18 19:28 Femur Min 2V Rt [CR] Stat 11/14/18 20:22 URINALYSIS W/MICROSCOPIC [UA W/MICROSCOPIC] [URIN] Stat - Assessment/Plan Last 24 Hours: My Active Orders 11/14/18 17:45 Sodium Chloride 0.9% [Normal Saline] 1,000 ml IV ASDIRECTED 11/14/18 17:46 Hip Min 2V or 3V w Pelvis Rt [CR] Stat 11/14/18 17:47 Knee 3V Lt [CR] Stat Tibia Fibula Rt [CR] Stat 11/14/18 17:48 EKG Documentation Completion [RC] STAT 11/14/18 19:03 Oxygen Therapy Adult [Oxygen Therapy, ED] [] ASDIRECTED 11/14/18 19:28 Femur Min 2V Rt [CR] Stat 11/14/18 20:22 URINALYSIS W/MICROSCOPIC [UA W/MICROSCOPIC] [URIN] Stat
--- NOTE | 2018-11-14 19:21 | CT ---
Head CT Technique: Multiple axial sections through the brain were obtained. Intravenous contrast was not utilized. Comparison: Prior head CT study of 01/08/15. Findings: Ventricles along with basal cisterns and sulci over the convexities are moderately prominent. Minimal diminished density is noted within the periventricular white matter compatible with small vessel ischemic demyelination change. No other abnormal parenchymal densities are seen. No evidence of intracranial hemorrhage. No midline shift or mass effect is seen. Atherosclerotic calcification is seen within the carotid siphon. Bone window settings were reviewed which shows no acute sinus findings. No acute calvarial abnormality is seen. Impression: 1. Mild senescent change. No acute intracranial abnormality is seen. Diagnostic code #2
--- NOTE | 2018-11-14 19:21 | CT ---
CT cervical spine Technique: Multiple axial sections were obtained through the cervical spine. Reconstructed coronal and sagittal images were reviewed. Comparison: Prior MRI cervical spine study is 09/23/18. Findings: Severe disc space narrowing is noted at C5-6. Mild spondylolisthesis is noted at C4-5. Scattered degenerative apophyseal change is seen within the cervical spine. Mild right-sided neural foraminal stenosis is noted at C5-6. Moderate left-sided neural foraminal stenosis is noted at C6-7. Other neural foramina are patent. No central canal stenosis is seen. No fracture is seen. Impression: 1. Degenerative change as noted above. Nothing acute is appreciated on CT study of the cervical spine. Diagnostic code #2
[2018-11-14] MEDS ORDERED: Potassium Chloride 10 MEQ/5 ML SDV IV ONE (20:49)
[2018-11-14] MEDS ORDERED: Potassium Chloride 10% 20 MEQ/15 ML Soln 15 ML UD Cup PO ONE (20:49)
[2018-11-14] MEDS ORDERED: Potassium Chloride 100 ML ONE (20:56)
[2018-11-14] MEDS ORDERED: Potassium Chloride 10 MEQ in Premix Bag 1 BAG IV SCH (21:15)
--- NOTE | 2018-11-15 07:11 | CR ---
Left knee: AP and lateral views of the left knee were obtained. Comparison: No previous study. Medial and lateral joint compartments are maintained in height. No joint effusion is seen. Vascular calcification is noted. Osteopenia is present. No acute fracture or other bony abnormality is seen. Impression: 1. Osteopenia and vascular calcification. 2. No acute abnormality is appreciated. Diagnostic code #2
--- NOTE | 2018-11-15 07:11 | CR ---
Pelvis and right hip: AP view of the pelvis was obtained as well as AP and lateral views of the right hip. Subcapital fracture is identified within the right hip. Joint spaces within both hips are preserved. Bony structures are osteopenic. Vascular calcification is seen. No acute fracture or other bony abnormality is seen. Surgical clips seen overlying both hips. Impression: 1. Subcapital fracture within the right hip. 2. Other incidental findings. Diagnostic code #3
--- NOTE | 2018-11-15 07:20 | CR ---
Right tibia and fibula: AP and lateral views of the right tibia and fibula were obtained. Mild osteophytes are noted off the proximal tibia. Bony structures are osteopenic. No acute fracture or other abnormality is seen. Impression: 1. Osteopenia. Slight degenerative change within the knee. 2. Nothing acute is appreciated on two-view right tibia and fibula exam. Diagnostic code #2
--- NOTE | 2018-11-15 07:20 | CR ---
Right femur: AP and lateral views of the right femur were obtained. Subcapital fracture is again noted within the right hip. Osteopenia is present. No additional fracture or other abnormality is seen. Impression: 1. Subcapital fracture. 2. Osteopenia. Diagnostic code #3
== END 2018-11-14 21:20 ==
LOC: JD.ED 16:58
DX: S72.011A Unspecified intracapsular fracture of right femur, initial encounter for closed fracture (principal); E87.6 Hypokalemia; E83.42 Hypomagnesemia; I11.0 Hypertensive heart disease with heart failure; I50.9 Heart failure, unspecified; Z98.49 Cataract extraction status, unspecified eye; M19.90 Unspecified osteoarthritis, unspecified site; F17.210 Nicotine dependence, cigarettes, uncomplicated; Z90.49 Acquired absence of other specified parts of digestive tract; Z90.710 Acquired absence of both cervix and uterus; Z79.899 Other long term (current) drug therapy; Z88.0 Allergy status to penicillin; W01.198A Fall on same level from slipping, tripping and stumbling with subsequent striking against other object, initial encounter
CPT/HCPCS: 36415; 51702; 70450; 72125; 73502; 73552; 73562; 73590; 80053; 81001; 83735; 84484; 85007; 85027; 85610; 85730; 93005; 96361; 96365; 96375; 96376; 99285; A9270; J1170; J3480; J7040; 93010